=== PATIENT | female | born 1990 | race Caucasian/White ===

== ENCOUNTER 2017-05-15 10:53 | Emergency (ER) | payer OTHER ==
[~2017-05-15] VITALS: Ht 160 cm; Wt 74.8 kg
[~2017-05-15 10:53] MED LIST: ALEVE220 MG PO; ATIVAN1 MG PO; BACTRIM DS TAB1 EACH PO; CIPRO500 MG PO; CLINDAMYCIN HC300 MG PO; CYCLOBENZAPRINE10 MG PO; FLAGYL500 MG PO; IBUPROFEN200 MG PO; IBUPROFEN600 MG PO; KEFLEX500 MG PO; MAPAP500 MG PO; NORCO 5-325 TA1 EACH PO; POTASSIUM CHLO10 MEQ PO; POTASSIUM CHLO20 ME1 PO; PROMETHAZINE HC25 M1 PO; PROMETHAZINE HC25 MG PR; PROTONIX40 MG PO; RANITIDINE HCL150 M1 PO; REGLAN10 MG PO; TRAMADOL HCL50 MG PO; XANAX0.5 MG PO; ZOFRAN ODT4 MG PO
[2017-05-15] MEDS ORDERED: ONDANSETRON ODT8 MG PO (12:33)
== END 2017-05-15 13:10 | disposition home or self-care (01) ==
LOC: ED 10:53
DX: G43.A0 Cyclical vomiting, in migraine, not intractable (principal); F17.200 Nicotine dependence, unspecified, uncomplicated; Z88.1 Allergy status to other antibiotic agents; Z88.5 Allergy status to narcotic agent; Z88.8 Allergy status to other drugs, medicaments and biological substances
CPT/HCPCS: 80048; 85025; 96361; 96372; 96374; 99283; J2405; J3486; J7030

== ENCOUNTER 2017-05-24 17:35 | Emergency (ER) | payer OTHER ==
[~2017-05-24] VITALS: Ht 160 cm; Wt 74.9 kg
[~2017-05-24 17:35] MED LIST changes: +ONDANSETRON ODT8 MG PO
[2017-05-24] MEDS ORDERED: KEFLEX500 MG PO (18:47)
[2017-05-24] MEDS ORDERED: ZOFRAN ODT4 MG PO (18:47)
[2017-05-24] MEDS ORDERED: XANAX0.5 MG PO (18:47)
== END 2017-05-24 19:44 | disposition home or self-care (01) ==
LOC: ED 17:35
DX: F41.9 Anxiety disorder, unspecified (principal); J06.9 Acute upper respiratory infection, unspecified; R11.2 Nausea with vomiting, unspecified; F17.200 Nicotine dependence, unspecified, uncomplicated; Z88.1 Allergy status to other antibiotic agents; Z88.5 Allergy status to narcotic agent; Z88.8 Allergy status to other drugs, medicaments and biological substances
CPT/HCPCS: 96361; 96374; 96375; 96376; 99283; J2060; J2405; J7030

== ENCOUNTER 2017-05-27 08:06 | Emergency (ER) | payer OTHER ==
[~2017-05-27] VITALS: Ht 160 cm; Wt 74.8 kg
== END 2017-05-27 09:35 | disposition home or self-care (01) ==
LOC: ED 08:06
DX: F41.0 Panic disorder [episodic paroxysmal anxiety] (principal); F17.200 Nicotine dependence, unspecified, uncomplicated; Z88.1 Allergy status to other antibiotic agents; Z88.5 Allergy status to narcotic agent; Z88.8 Allergy status to other drugs, medicaments and biological substances; Z79.899 Other long term (current) drug therapy
CPT/HCPCS: 96374; 96375; 99284; J2060; J2405; J7030

== ENCOUNTER 2017-08-24 01:36 | Emergency (ER) | payer OTHER ==
[~2017-08-24] VITALS: Ht 160 cm; Wt 74.9 kg
--- OUTSIDE RECORDS SUMMARY | ~2017-08-24 | XMS | Clinical Summary ---
Demographics + + + | Address | [address] | | | [place] [address] | + + + | Home Phone | | + + + | Preferred Language | Unknown | + + + | Marital Status | Single | + + + | Congregational Affiliation | non-denomina | + + + | Race | White | + + + | Ethnic Group | Not or | + + + Author + + + | Author | [facility] | + + + | Organization | [facility] | + + + | Address | Unknown | + + + | Phone | Unavailable | + + + Support + + +---------+ + | Name | Relationship | Address | Phone | + + +---------+ + | JARET GOINS | ECON | Unknown | Unavailable | + + +---------+ + Care Team Providers + +------+ + | Care Master Yacht Name | Role | Phone | + +------+ + | None Per Patient, None Per | PP | Unavailable | | Pt | | | + +------+ + Allergies + + + + + + | Active Allergy | Reactions | Severity | Noted | Comments | | | | | Date | | + + + + + + | Opioids - Morphine | Other (See Comments) | Low | 08/10/19 | " I don't know" | | Analogues | | | 18 | | + + + + + + Current Medications No known medications Active Problems Not on file Encounters +--------+ + + + + | Date | Type | Specialty | Care Team | Description | +--------+ + + + + | 08/10/ | Emergency | | Patrick Canales MD | Non-intractable | | 2018 | | | | vomiting with | | | | | | nausea, unspecified | | | | | | vomiting type | | | | | | (Primary Dx) | +--------+ + + + + from Last 3 Months Social History + +-------+ +--------+------+ | Tobacco Use | Types | Packs/Day | Years | Date | | | | | Used | | + +-------+ +--------+------+ | Never Assessed | | | | | + +-------+ +--------+------+ + + + | Sex Assigned at | Date Recorded | | | | + + + | Not on file | | + + + Last Filed Vital Signs + + + + | Vital Sign | Reading | Time Taken | + + + + | Blood Pressure | 121/66 | 08/10/2017 3:56 PM PST | + + + + | Pulse | 72 | 08/10/2017 2:25 PM PST | + + + + | Temperature | 36.3 C (97.3 F) | 08/10/2017 1:47 PM PST | + + + + | Respiratory Rate | 18 | 08/10/2017 4:00 PM PST | + + + + | Oxygen Saturation | 100% | 08/10/2017 3:57 PM PST | + + + + | Inhaled Oxygen | - | - | | Concentration | | | + + + + | Weight | - | - | + + + + | Height | 160 cm (5' 3") | 08/10/2017 1:47 PM PST | + + + + | Body Mass Index | - | - | + + + + Plan of Treatment + + + + + | Health Maintenance | Due Date | Last Done | Comments | + + + + + | HIV Screening | | | | | | 5 | | | + + + + + | Tetanus | | | | | | 9 | | | + + + + + | Cervical Cancer | | | | | Screening | 1 | | | + + + + + | IMM Influenza (#1) | | | | | | 7 | | | + + + + + Results ED INFORMATION EXCHANGE (08/10/2017 3:51 PM) + +-------+ + | Component | Value | Ref Range | + +-------+ + | [facility] Care Guideline | YES | | + +-------+ + + + + | Specimen | Performing Laboratory | + + + | | [facility] | + + + + + | Narrative | + + | | | {ene6xhqtdunwnqv4392qmci4ldcsbsl2567{info{title Notification}}gqccpc06561zdp | | ogs00836nvlqxg51820iowqju47822sutmhtm917dysonfo029eqwhs7694gnipa636fhgwp270fglxe | | 643upaanuik0672whmrhmyh254tjgvwbqi246pjnknhtc368lbrsyvjdsu0i3j7sl34{fonttbl{f | | 1 SansSerif;}{f2 Times New | | Daniel;}}{colortbl;rfr4vvtvh9gyfh4;iau747qukus765vsxq409;gtx774nipyr204nxas244; | | lwv769dkqpk647cbiu894;tzp972magjo154wshn824;}{stylesheet{a56ifvxf92 Text | | body;}}{*listtable{listlisttemplateid1{gtqyirrabqtmdglto25sfkboaj5xklawbjcrpbj3 | | levelfollow0{leveltext '48z2430 | | ?;}{levelnumbers;}g7m9u1kq31ksdhtb-835fb004}{jcqqheofpapynjqux86wqccvah5bhuv | | sdfgvuav6igxwgoxslwg5{leveltext '44i5566 | | ?;}{levelnumbers;}j2u8c5id12bylzuy-733tt3871}{fhphprbfrggnxhyyk11asqaacp5khj | | ilzwcevdn7gatnsorltgv9{leveltext '10m5002 | | ?;}{levelnumbers;}p8l8n9oh09xescre-429xy9112}{gbdrnhfbuyeujyvik09cwpzjay0vnh | | rdnszwbkt5edgtkbdbjwt2{leveltext '93h3640 | | ?;}{levelnumbers;}w2p3b2ot24gjjkzm-623qh9416}{qzlrbrmmcuaeplgew61plrexfe0mwm | | aggjlhepc3ivevqslitma1{leveltext '61o6585 | | ?;}{levelnumbers;}l2u2m1yk47ddyaqj-727oi1220}{wqejnujscugarvops06ulddqmp9ktv | | ykoqseocu0feivbynanum8{leveltext '08e4227 | | ?;}{levelnumbers;}j4d3k0xo58jmxmnt-811jh2352}{mbrgvwklslgihwecg16sqifixg9aam | | awmdlvisl9bkxkreqczjy8{leveltext '43t3398 | | ?;}{levelnumbers;}a3o9e2ml21phklyy-661ci8450}{gthgsbnawbzxfnaom70wlsgzkn1agv | | adbavqimp1nkrgwdjyegz5{leveltext '28g7743 | | ?;}{levelnumbers;}i3v8e3cd96kvauvn-015ga5619}{zilnwedqjzqjpzcrt58cmumvgw0zdf | | jdsgyehjc3eiyeknwbikf4{leveltext '88k7223 | | ?;}{levelnumbers;}h5p8c4rg56fawkfo-551xx8571}listid1}{listlisttemplateid2{li | | xmefriiswcxxwvm62fvukvhl0sfdcfcrcgpfv3zejuarrrvfu8{leveltext '40x0435 | | ?;}{levelnumbers;}v9k7y2qn22okjibm-773gm100}{wbhtmvgyicegxgtlw56lmdsrey8uecv | | mywcinht7lzhofwgopdt1{leveltext '84i3841 | | ?;}{levelnumbers;}g8q4e3pd09dzgqtx-553lv7333}{qczhsitibhxntvwvd24cvgivju9uyp | | jpttvipie0cjkkoywmmwt0{leveltext '42e0511 | | ?;}{levelnumbers;}a5j8o8zt15hnjvlf-027zv8620}{egsawkyeaxdrvfnav52ptmxgmz6xny | | bpcnbnexg1hjwfmskgndp6{leveltext '82b7373 | | ?;}{levelnumbers;}y9w5u0dc14ompttt-903px8973}{urcxdcxmuxvxgiqkm38cvvylej7dja | | oxnhikhvo7fqyovcmejkg7{leveltext '39s6329 | | ?;}{levelnumbers;}x2h6y5vf94clypcy-026lj1616}{cajtyccfcpwbbgzxm85rtgvvyw6dcx | | lsaijbffy4lqqpdylggox6{leveltext '30u7625 | | ?;}{levelnumbers;}e8w1l8gt84ydoqek-915dm3155}{mkkivixwtfxijmcfx30ekyhvcj3xnz | | odmsjmovk6sjtiqrtbauq4{leveltext '80o4095 | | ?;}{levelnumbers;}j1z6c9dx26eoahjz-939of9641}{trhmoimbsrnqipztg34iazjoup1zfh | | orfxabdvu2cdxbahvtknu7{leveltext '40n8430 | | ?;}{levelnumbers;}w0k6d6mi06cufwsn-416ob9948}{ezqehgdsxurzkpcma76aoprgur7muk | | yfghfzudi5fcxzjxxrwls1{leveltext '28i4827 | | ?;}{levelnumbers;}b5l7z9sj22aryhcc-389yq9741}listid2}{listlisttemplateid3{li | | rikkzbpeyppylua79hwljoxq9wmtuuvympkyy4asueifeztvk9{leveltext '23n5711 | | ?;}{levelnumbers;}l8c6i1bf19xjqtjx-233ur726}{imxyzmtlnqyrwwadj49buyfgpb4pvoo | | odzgsoqr1imcnoobwgbe6{leveltext '87h9012 | | ?;}{levelnumbers;}r7y3s4re43zeknmc-193lu6916}{pxqyvscjxevjgvdlf16qafogmn0gvj | | zrzuwvdzl7qszlcpkqlpo6{leveltext '58x7185 | | ?;}{levelnumbers;}s3m2v0au05wlmvwq-709ks4828}{gffdewdldyajdiydx86snrrjnu5bav | | qtbgbswuj2kjkhuzcxdco9{leveltext '65m8671 | | ?;}{levelnumbers;}p5p6i6se86ekhtas-441jf1725}{euhdlzwgusfbkhcqs77pvafrmr0qda | | igfnruhuy7daymrubwpca2{leveltext '38z6692 | | ?;}{levelnumbers;}e6x1m4tt23ebzrls-950eg4086}{bbdphtgobkryalley04eyfxzis1fvo | | zatrjbecx1aqpkxpxmwla5{leveltext '96r7414 | | ?;}{levelnumbers;}g8j5d7of82ezenjf-706mz9545}{tksvqnbkmtptcitqt91asaipdm5aoo | | qmbygubpz5zgfmyzjhhbm3{leveltext '18j0769 | | ?;}{levelnumbers;}s7a2e7tf94azbdbb-368yj3279}{gtkdjhpnegrscgnog39zonnfvt2yha | | yhzxqttwf9rtmgcovpaaw5{leveltext '53u7007 | | ?;}{levelnumbers;}i2d7r4ob20bmptvm-109do8238}{lhqtwdsbiaboslrox22byfkdlb1eui | | jphdbdnmg5murxsrybpyk3{leveltext '89w0082 | | ?;}{levelnumbers;}h9w9c6nz81nmmbmo-098gp6786}listid3}{listlisttemplateid4{li | | ytkydeoeylvsmki30zzkonhl7pquvybrncjtx5ziusspcvyuy3{leveltext '31j2824 | | ?;}{levelnumbers;}j8z4h8uj51sntdul-222qi210}{rrqfvlfdovxesyxze92fyupaog0didl | | qdxjttpu8eovwfvxqyzn2{leveltext '28c8442 | | ?;}{levelnumbers;}y5x3k7dk87wduswi-431wl6124}{xkpjcqxkkyvpssqmn30klutmlx1dds | | cggwqsylv2qhndmcbaarb6{leveltext '17p3282 | | ?;}{levelnumbers;}o7r5c6se72nlqdgc-331le2639}{tnqoxnkymulisrbut21pbucyno1jhw | | curgejcrp6owhccvyrgfl1{leveltext '37p0716 | | ?;}{levelnumbers;}e6w8p2or20lnyvub-407db3066}{hjitnzkcxnqquxutx46ygdcoza6bev | | xkriyxrci5zlajxsbfetn0{leveltext '81n9385 | | ?;}{levelnumbers;}k6b7q7ch62phoreh-926ji3686}{gancvsqntbrcjpwfz86ewhuotg0wrb | | iapkcilym7qrnmudcgtgt4{leveltext '38n9848 | | ?;}{levelnumbers;}d8i5s5ae18hzjrlg-926jn1130}{wnojhmtfwjfczmaxt39pvqmluc0inv | | nqkybekjs7xuhuwyhbpby8{leveltext '80d0875 | | ?;}{levelnumbers;}f5t3q6oa74wecsvv-239zh1488}{bsxuxfcumwmmxvzxj82iemdvpg6pbx | | wqmvielhj3grsuxfhzkjw3{leveltext '06w7709 | | ?;}{levelnumbers;}e7f9u8yo02gcdndr-351nv2800}{lfcizefojsaoshmiq23fedvxlc6bqx | | xjjprgkht6htowgihbrqj3{leveltext '11z3086 | | ?;}{levelnumbers;}h4w5i7ql09eqdmxe-163mx3462}listid4}{listlisttemplateid5{li | | cfhqsdpitmywpir91idhtamx2wixgkrddckzv5qqzomvhiyev0{leveltext '53h6522 | | ?;}{levelnumbers;}z6l7q8tt11uwkiws-090nk699}{ylkfviqmnaeadjjrb31qntjbmz5nufw | | gpvobnjl4amcuvfyvcum2{leveltext '49e8453 | | ?;}{levelnumbers;}h2w7c5vi69qfdzms-151op5221}{djoydvwptvexrnqvp64wmojbkx4dzd | | pbncnswrh4cdmfrhrwsio0{leveltext '00y8876 | | ?;}{levelnumbers;}x6t3z9lt85hzmvdv-702pi4982}{vvrigseblhfevzvok13yifrelz8lyz | | mtkzuswlj2nqxcyqujfrs1{leveltext '47p0313 | | ?;}{levelnumbers;}g0m3g1mo93vytipt-041dg2563}{geqlhdzefdvehnbrd64pikcllu2ene | | ihrwiiklw1oenkiishcek6{leveltext '46r2946 | | ?;}{levelnumbers;}c2b5x0og40sktrtq-942nb7865}{qggmjhbmrjswknmty08ctznjhc7czn | | oszayekha6jmjruslzgsj5{leveltext '79k7351 | | ?;}{levelnumbers;}u2g6s3ej73gxizdi-280dt4156}{cifddoyaqafqtdmos82ufgrypl8dcr | | rzhsvyrue9fsaqskqhutp8{leveltext '49a3489 | | ?;}{levelnumbers;}k7e2v7ux68crbusn-239vx9424}{nkebpbkjzcgdmgsvd73vfuywyo5kkr | | siqsmnnbx4wasbezkvhsr2{leveltext '71p7402 | | ?;}{levelnumbers;}d5i4q7en17nlpzaa-730sz1806}{yteqxabledimogfjf13gxggwzb4afb | | dfcohiswx5pvfrcvwhoqa0{leveltext '89e9994 | | ?;}{levelnumbers;}p6r5q2wt92ifspwf-764ma3668}listid5}{listlisttemplateid6{li | | xtnltdylpxfgvfw61ymltncb9pjmmxphtznza2penhzwsfmcy4{leveltext '62w2604 | | ?;}{levelnumbers;}l7m0z3en61twiskb-378do902}{sxqdzygssdfnevjqx29wmubtkx6lgnq | | zaubvtom2uotakwqzmzr1{leveltext '81f2379 | | ?;}{levelnumbers;}l9c5y9kb90kvzzjo-281fj8789}{sdrckidmbeorshrpp00npmhmvo3fkd | | qduruuohv5efapwwjkxrr2{leveltext '34i8658 | | ?;}{levelnumbers;}c7m2a0mq67znejdw-810df1025}{addjrogybrfvrnbtw16yxxjpvv2hft | | ykaepvbkv2tsrohwkgntu4{leveltext '23p7498 | | ?;}{levelnumbers;}w1j1x0fc14rhopgo-461kn3910}{sqzxevyvwdgcsldgh88qlokkzh7mso | | qovjkddeh2lagoyxgbtod0{leveltext '97m0306 | | ?;}{levelnumbers;}j6v4h6ao09lrqkgz-010xu8552}{zehraqlxeocxzgnuj12gnbezoz9wue | | pukwduncl5pmhyddmtcez0{leveltext '18x4023 | | ?;}{levelnumbers;}k8y0d1mz15atfdyl-214mz7895}{ggggmzeeehvklfmnf41aisncpa7fzg | | crslzmqxr2ymbwamdnnuy1{leveltext '27m0546 | | ?;}{levelnumbers;}b6b1q0wg59kuflmn-337pv9913}{hremrubdgcjcoawhf01krxzxmj5mln | | rthteshrz1ugoqgmrttts0{leveltext '76u4633 | | ?;}{levelnumbers;}f1z4i9rs12erehdx-115rx0931}{ejcfnekbumppkriod05yonwngr6wur | | hjpjfliau5njicrsuazsa0{leveltext '98q3770 | | ?;}{levelnumbers;}l9k7i5gk65pezabi-877rc1855}listid6}{listlisttemplateid7{li | | khhzacpkcactvxt42mhrhsiw7qolydtvlwtwm9nygkqyrsvae6{leveltext '23p3822 | | ?;}{levelnumbers;}e2w6q3yg57ydhtdo-745oo612}{hqbkbfydykqcqafbp89wxnlxzl1fgjy | | tonvjfem9doqembttukj3{leveltext '47g0874 | | ?;}{levelnumbers;}o1h0g0tw08bhftwe-916nb1703}{rcldmikwrnfdykrpu94pnfgrmi6dcg | | rdkndrjex6dyewaxiinin6{leveltext '24r4204 | | ?;}{levelnumbers;}e8t9e5sz47kaxvey-556jl8585}{kehpqruvnrnisxxme76jieunrn5ylb | | lpxqekcwc3yigvdilfgqf3{leveltext '99i3270 | | ?;}{levelnumbers;}d0k9s7qh52ymvhqc-619xp8286}{oilsjglyyowebhrdv23tsuvtsn8ozj | | mnneeqfdl9bnszgaujufm2{leveltext '52p5183 | | ?;}{levelnumbers;}j2q6d3ig24wrkdlf-277om8515}{dlmemycpeonpbwuuv27cigqehq1eif | | nifwdetuo6ubvufhgggsg0{leveltext '94i0035 | | ?;}{levelnumbers;}t2m3k3it46tbrdah-022cf0893}{qkrxhzbzucyquaxea70mltivdo6ash | | rjdgdbbzu6fcadaqpuwvb5{leveltext '58f2406 | | ?;}{levelnumbers;}u4m9g9pf62aqfwuk-390cj2025}{zfsbgvbliqovxhdjx08hzrnngj1elf | | imdjovbyv4cqwidtctqcs7{leveltext '37n0090 | | ?;}{levelnumbers;}l3b2v7pq80jfspks-313pc0987}{lxwrmrxuzkbftoipr64krgpphc0mvb | | cnrmhxpov9dwoutciggvh6{leveltext '16y3365 | | ?;}{levelnumbers;}u9n1k2sx27yzbphm-808uq5426}listid7}{listlisttemplateid8{li | | rshklymrdlmqdni99flamqxd2pdlkerirhrsu8httqgoxmabb7{leveltext '80q5752 | | ?;}{levelnumbers;}a5z9m6ma89cdzqcv-105ev192}{wadgkctmybtqdcckq56ppfxtur7nksz | | izljugfd8iyqgtovclvd6{leveltext '51f0509 | | ?;}{levelnumbers;}k6t7y2ij98ohplac-753ot5722}{yhyarjmcqfpsaqyqv13yfjlytm8xul | | zujjvyquz5ofkxyersdzf8{leveltext '07a1934 | | ?;}{levelnumbers;}k7l4c0kc55pepaai-294qo5078}{rxqvyiwjlyprluvcy03sngwivg9nyr | | tmeybfgcc2isnjmpegvwe0{leveltext '39x2299 | | ?;}{levelnumbers;}n1v1w1ag83mphpib-764br5844}{mnyuwsopujriopwix09liptjvs7jzj | | ptaroseax9mzzwxgyfwbt4{leveltext '20k2729 | | ?;}{levelnumbers;}u6h5s5mk55roxuzi-987nh9721}{uvzrkgbrlehivujcp33eukvtey4jil | | ioxyxdndn5ofqxoyarnvs9{leveltext '05t1603 | | ?;}{levelnumbers;}k1g3t2dz07hyeqvy-991gz5544}{zcuwqyftsfkyrnwyx66ybrlqbg0ayq | | vjeuoxmiz7yvrpxxyxpei4{leveltext '09k9511 | | ?;}{levelnumbers;}g3d3b5zl94yhyxhe-026qn7090}{kkxntgcieozwzwjjn57dlrcpks4sec | | arsnpgegm7qqpwxfizwrh7{leveltext '61c0412 | | ?;}{levelnumbers;}o9x8e6qa42dppkse-214et4312}{qbnmwusbljeifaxry59bbwfweb7usb | | aoepxioee3flrvnnqighu8{leveltext '78f9184 | | ?;}{levelnumbers;}k1o5j1aa82ctkxta-332ms1684}listid8}{listlisttemplateid9{li | | sseouqzuvsveuzj64mqrallh1djwovrhpxxdz1voezmyetmol2{leveltext '47v0089 | | ?;}{levelnumbers;}p4m8p7pm65uavoar-462fp960}{zesfxxlepkvfimoxs04hggfnkt6bsve | | fcsxospi0ztjdzbwhvjx2{leveltext '09c9183 | | ?;}{levelnumbers;}j6c5u3gb01bvuiwl-578jb8412}{ilrzwwyeamerbbwin43chljtch0ykh | | kpsagogxu7mcvkhmlvxip0{leveltext '62e0506 | | ?;}{levelnumbers;}v7h1t2yb75gaslbw-577hc7348}{drgnvmhyxrdguxvqq48pnsndnh1rtd | | wksrxrfio9vaiucjadmzn8{leveltext '77u3339 | | ?;}{levelnumbers;}b0y2q6kg75epxehm-570dd1932}{nxzqarkmqklmkjbyu04qxguray6dde | | muqqprmar4fmlrgnaxedz6{leveltext '71p5634 | | ?;}{levelnumbers;}l9v1q6tk75ryprex-059pr9128}{lxsvnjdhduzfahupe92rzvgdsl6ski | | mzauvjfqv2eijwbxqjcbs9{leveltext '88r4871 | | ?;}{levelnumbers;}y0e5f6ks29mjluyv-739qd9900}{uevfiyehqoksiwnav64fyoyxie1hcr | | ycubeogsf1ccxxuvfvzgn7{leveltext '17m5799 | | ?;}{levelnumbers;}h6n4q0lv88noxdsd-852jn5972}{ishljvdxssjghfcmr35qszyasf2cfa | | cczfwwavd7rzawhqmncos4{leveltext '41w3044 | | ?;}{levelnumbers;}m0c0m1aq62ybaonb-615dt9694}{bsiyxxqxvcvmqryqh54rllipdf9qwo | | ivmbsqngq5dbwvtvsurlt1{leveltext '78x7006 | | ?;}{levelnumbers;}i5h3k2sc61dbhosp-650xk7273}listid9}{moyiwegzaqvrizpfqf71{l | | vmoarcsmhhlykdqu19aqtvrjz9hyiwgbuceyzt3gvvkqlrisuo5{leveltext '02a5665 | | ?;}{levelnumbers;}v0h4i1gi34fbbavd-705cm251}{stggxkjnudkwqfzsv51tnvkaiu7uxaq | | gzwvepgu2sikkuuarylg1{leveltext '58f1826 | | ?;}{levelnumbers;}m1r7h1ka28tjosvk-893db9286}{oczrecqyrbqczrlkw71wnljriz7skt | | pstosxdqb0pcieproapbo5{leveltext '51z5881 | | ?;}{levelnumbers;}c1g2w1sm17ebbgdb-442fr1761}{ovhjbvhwvsyaejrpc38eoacwyn7etp | | mdsnakmab5iuwgvoqozkz4{leveltext '79h4503 | | ?;}{levelnumbers;}f8e1h4pu47opkbcj-720gl8951}{hzooqmsabmyasyhfd23ztpvnmh4akq | | irrouubba2acglnwqhkam4{leveltext '24x2071 | | ?;}{levelnumbers;}p4p4y3oy68knkgcd-219pa1855}{jkftmeazzsnegewrj37tjygwsb2aqk | | lyogegjvh4wlumtcbinfa9{leveltext '45f3444 | | ?;}{levelnumbers;}m5d2f0do65bbawep-522ny3184}{fpesedsgfqvbjmpxk08daouwww3uri | | scokdxuen4tkclyiwmbcq3{leveltext '44v6450 | | ?;}{levelnumbers;}h5x8a9ze41zdclmy-825yl4142}{fvzubjnqtrxhxedxm86mldaryc7wux | | icpalskcq3wnpiitshprj5{leveltext '77b9583 | | ?;}{levelnumbers;}k5g2v9qb97eiyywd-139fi3157}{scfxgmxtltxuhegxu34edodeuq6fck | | ypanskkya9dgyqfhkkkqj2{leveltext '54f4157 | | ?;}{levelnumbers;}t9q7r5kj45cyejih-846qw9157}eezhzo92}{dyhufmvwolwvmlyhsh88{ | | sqzdjiioicbqtllrx15buixclt4gougmympzhru8dwmcnqgdwsb9{leveltext '12h3854 | | ?;}{levelnumbers;}b9v1t8xf14ahrwqg-224xn207}{rmcitaelscrjpgcrw55pmybmno1crmx | | zxljablu2rzeqwfcxwob4{leveltext '88w2316 | | ?;}{levelnumbers;}b6y0y4cn06izqnpg-454zn9922}{kjpuspzovoqjxvtst53tmgnnho7pti | | kyqqcvkws6spgnmwphkmw9{leveltext '74z1044 | | ?;}{levelnumbers;}z4e2t4uf81fmzzxz-525yy1851}{xdlevfsnkcxordyrv70abzpkxi8tdg | | fvtoxdxno2ozyfvxuiemi5{leveltext '15i7180 | | ?;}{levelnumbers;}f6v7z4cj42kftqqj-299hm7238}{ryvpxvpgankbefpwz77gdmgtqo1oay | | jpeazqwzp3rfoliyycpxi3{leveltext '72a0674 | | ?;}{levelnumbers;}s2n9b4eo70ajxnzk-391fm9882}{anhzklhynsgoahism14qfjvrrf2dsk | | toifdvmam9gqygagojcqx9{leveltext '95w2064 | | ?;}{levelnumbers;}o0b8q3sd26tsxpbs-796qd1040}{pxbvuqgxiyzhiublx18kdfevyx9czd | | tfxgtjrvp1ypkbtxxswrn1{leveltext '12v2629 | | ?;}{levelnumbers;}a1n1e5mo45jtpbyd-337qe6762}{jgjjesuvaajhatkzl95wkmyssf9fmw | | ulupietbx9psfdxchperl9{leveltext '68h2747 | | ?;}{levelnumbers;}u6t7o3qc84fwhbpi-628cc5267}{mgjfzughllpdirrgu17txlyqox3vyg | | xinevzdlc3rjknwbjugor3{leveltext '47u7002 | | ?;}{levelnumbers;}f9z1l1fb94oewxzy-158fg0699}nopukq65}}{listoverridetable{lis | | ydftivxuldbqori2bazliduuxctwijzdt4ev5}{ybszpqfbespmezbggz9abtylmiiubicumrhu4ea0}{ | | wrgazlgvdjpwjhyaak7frluiplydysfmwibu5ur3}{sivygutnrnczxslkkx4zkfwecnbeydosxmfn5m | | s4}{xhbowjjeurrbyfcblc0hlkyuxbrhrrgfkzgo9tj3}{powlqtswnjubzruaao0yncliwowgcioczas | | t0ls6}{zaenbmpersnxqhxuad1jjlpjbejsseayddlk3zy9}{izjgipkrjejbjmzige9sgzbmsfizvym | | judlx8jf6}{qqxjkvlyitqqptcdqc3fowvsydcgcppfhwer6fe8}{cbleerhwqtdveerwte07fcggnep | | jimtjprrzn3ck95}{bngtznxnmrfyfwelac82iwhrdsnkqzjeoveac7kn77}}y6t1j9yl41v5g4e | | 0ph15h0h3q7gg98{widctlpardbch{xmkupndsencqgp7sj7sk68tc472jp9wo2wl1{wid | | ctlpardbchqccf1 XXFFx502?PQDDZXHEQTLEz747?08/10/2017 13:52f316?BRISEIDA, | | MBBQCUGXz462?MRN: | | [id number]}k1s9h1li35brl}h7z4b6zg77{ctuwnlunwkjdmwd161zs0zr7bj6{widc | | tlpardbchcf1 This patient has registered at the [facility] Emergency Department | | par}c3c0g8ti36jie}y7l7f6ao65{fzwqbilbgbdiyh8mgmj49up640ig1kc5gz5{wi | | dctlpardbchcf1 Criteria metpar}p3z2t4rf44{pardpar}l9y3l8xm28{pardplain | | y4a3e3ax46mwumjpfzlqu{*sciizb4mhbxrdbw1orobkeuje4wxpqdgc3}zn9rcjqtbq2olpfi | | cyyt7n1k7iu79vnrs{lkybpkmnyclps1s0a5gf62iqtlk hichdbchloch {u8226 } | | }tbsy7xb5 qf332jy0bgx418wic8jk-252{rtlch ltrchloch cf1 | | Guidelines}par}{pardplain | | t7t0l3rw50ckmkldbpxdx{*jttvpj2kbpscabq8zinrovlzh5huusgyh8}zj3hxxcgfc8buqmx | | wiva1v3a2bt44vccw{aywfmdijffczv1l2v0jz79sausb hichdbchloch {u8226 } | | }ycza1se9 lj638cd7ruc570afn7sd-705{rtlch ltrchloch cf1 Frequency | | Patient}par}par}i8g3c6ft05{idmcrjnmjdfioy8ttec86fj265qm8lp0fr8{widctlpa | | [facility]k3n9z4jm45xy4 Last | | Updated: 06/11/17 6:10 | | PM {par}cp3pu172om4pg2{widctlpardbchpar}b6m4p4lp37z6tvzb35is542ng7 | | li0ri0{widctlpardbchcf1 Care | | Coordination:par}y2k5l8fe44{lhhbqkplsanterk995gq4xv0yd8{naevtzpjbpqsqig7m | | 8fs7jf87 NOTIFY CASE MANAGEMENT TO ZLXpe3y2g2j8va34 IF HERE.u160? | | [phone].par}c3r1t6sj74ci067vj9df6lb9{widctlpardbchcf1 ENCOURAGE PATIENT | | TO USE PCP OR CLINIC FOR NON-EMERGENT PROBLEMS.u160? EDUCATE ON | | UTILIZATION.par}o0v3s0kz73eu295ds3gj7ak6{widctlpardbchcf1 PLAN IS TO HAVE | | EOIPA NURSE/CHW START WORKING WITH | | PATIENT.u160?par}m7j4n2vr74kz976jx8xt5vb1{widctlpardbchcf1 GET CURRENT | | ADDRESS AND WORKING PHONE NUMBER IF COMES IN TO | | ED.}par}y7b0t2ez73kk774ws9fe0qy5{widctlpardbchcf1 These are guidelines and | | the provider should exercise clinical judgment when providing | | care.par}q2f1i5cg14jrz}k5c1u6px74{widctlpardbchpar}b6x1d9bh23{widctlpa | | okobri9hreb11ko350hj9qm6ua1{widctlpardbchcf1 Care | | Providerspar}a5y3u8su78{{ypqslstyilbrfxrnnubznjdkmeqiwgkzui2zxfbioexrvocbuc | | naent4avexjjzprucocyyblynw7oufdikcwgxuuvhmepdkf7wwiefy82awzfnz21mwgnld50ppglqg | | 91apapgjd5titfvil1wqrblkt7vbzzrxk2lmgtcgxkxvhzbkxl2998vgshrmcfdssxvxiqsappozxu | | uvndg0iuarxqeydyqxvswwkkrm9hmymqvoaexchlrwkvmgz1qspcjnafacsvpqyydtld1qsbgqb74 | | vymfwj18lrixjm88toesne98flwanpf3nfmmsvc1jpigzhl0shqrsrd3adhsdwzcofeextri6513jvt | | ilcmxhccrhdhtinzxlhrilflgq8kyirfsihqgkvgoaypwlv1vnryhjlkelmqlekswlpc5lrirjokq | | byvlofdgeraa2bhblmb91pjujkd08uicswr37slttdr27cnorpcy9kdrzptz8oeyraca3vtpwdej3g | | ttkziubviyxjhwc2418ygwgdqgxnedgfwzxwrjtebnbwdxxq3rycncxhlsylqifuzfkfi6euuysdvb | | duomwxvapcqg6tucoafuxhakhfqszmfle4xlqfce67cszjrs88rtuuxu98filcxz98raqtzud3lrcl | | pgx2akwhrix3hdlwohr6kjyzzjzpzrutfxgo00098gcmtmdakzxqrckvbfdmwwtjhqfkbr2ifxwjdd | | djhxicsigvxai4ubacwnxjvacgowcqmoen7nkitrgpftbszvxudblvx8gfaekd74xzfxnt82vobvmz | | 13qdruys01iikfiyr4yovpjxi0ivquudh9clsaurp6twaegzusxefuujxt35554f8vt5my63mzgl | | intblqlcf1 Nieiqiyptelielhgdp3yv6ox90ayxwvtezutbrz9 PRC | | Ghsmvjmaqopthb3ca6uj62zqigbawdaxcpv1 | | Afbjyodfkghuacx3kb1ys60xunvofyzsepns1 | | Mzvuitcdynkqd6re3st87jhnjeyjbblqpy4 Service | | Nupdyaaeahldqnsoztjgdkhtwmfzrruyoobbmcsbnkqsyoqguyskpesgtbzs3mtimssqeibwmqw | | gaaxpg4gfpmmsfkupdfvzrviakk7qkhspjrtbkefdqbbkdon0earzzr74bqiwth16xilufx30ctibz | | f07fbbyzqp4lejrydp8ivouhhx5lddoydu5nmfzgauegwysfxcq0247pkpudfamanjbtlknufvohrj | | dgocbj2dcfihrpvzhkohszhalqj9uzfpdjeflwupknfmzfpu6jfgdlpihazohllobxszz7vbuxad31 | | duvwaz95kbonmr18rupkge02ojalwxw2pwqfyyx8rnnsjby7xnmqqew9vliwizxzherycgal3523pd | | kryctytcysumafqvrmtrtgmrqkl0xvwizgyrqmlbpqunweez9wjorbdebcltmipijlwkf7mivhwgp | | jsgexdnfzkkoz7btpsjg12radavj41utaxaw14rbfuja43tmjdfdf1dlgsqkt9hjvigvg6mqfmupn9 | | zyycfduymcwhyvjp4100mloefvbnznfrkouctjbbxzqqnitwb0yuytnvtexmshbymkqgtx8jurxdui | | djiccvjlwjwbh8wmfztiunluounamotkrj4qdodlz32ztmqoj18viwkvi93jvzyjl40wutfqmg3out | | bbnp0xrenlli0zpfjtnu2jrmvuftpnenbhogt10776jbtdcjfoynfybnuwjuymwetnhuppy6ianpevf | | hdkrtdmydwtdq0sdrxszceguiatxvuqhya1rwecnvlirmqqejtnlkvv5dsjtpy41xyqsgm81vtmpj | | c36jyegqx75qibpoxd1yrdisxa9tfyelqq3jlgioms1bxrsadlataxcuhxj90622m5w3d9ii73kr | | rdintblcf1 [facility]plhrqqw4y1y7eb57oesnhahofir8 | | Primary | | Sgzcujlcmziqlhwhxznbabklbbbjihbeoysvvywivxeneyavsc2y7n0gr22gimizsqljib2 | | Current | | yzlvzbolfksbnbrjepggufzqjehllzftqruvojtpzpqihelvmhdbadz9kohzbaafkayagskkajd | | j4dashazbfsiieihunhtjo9dejdkdzroxnvpjjmbtot1ozkkbp57jojzih61mdjlxz41wkuylo11t | | nmdhro4hlazdxw0ajzqbrg4zyyormx5mtoblwutagofkkxv3587ahcshniwszlkxfpvmydtucbwrfcm | | r3sziuommczqdpzqemltcd7wdsqzisbyjvnnjqsmpyz4furxwjeytqcqazgzamph8ztowsw02sqsd | | dv26hnaryh09alagli43xjedxui0obpvwpn2ypaidai7vbavwip2anixxpuvjxamsorm4853fijqvml | | qaaogghqbtbudvsctgzqoo4pzivctnkehqdlxyipblk4fmyokromvjaxzeqrsvrs1adkwrzcsqgmm | | iadnanuv5xrkmoq85crjnty62esyajt91zkfcwq60knadspd9yoeiyve1dbzwbut7lqgxwat9oeupv | | kmiuosyebjs7144aotvoiazndezxuncnacrgywfzzgdd5iribwtksykcxglahqgog6mzmoypqaprpy | | uykksduo9dymwkichkuejcwmocrdx9nzctxg69xdvbcd15ldhoaz39faklmg41qsiwrgu2qtrsgaq0 | | gdpmofx1knjcfnn8qeuqfxranprsofkf43309fffbefpcsagyxmneflnjvlkmcxgck8wozxzwrgacr | | ureonkiip9aukenpgwxilcbwivzute5oauunjizfxngdoeifnwf6baitlf36sangmf93swagzh91f | | dgplz54cgntmjm5fdfigod4ckyyymm3zacwzes4yercwjvfatcwqbpq25499k2o1o9yq97nitwix | | [facility] YMQWNIVTHpblcaviard9v1a2vp16azileouisul7 Primary | | Dhfudykxebkoyinslkszblhpwaqshvtg8v8y2oe45jpypwjmxyxm0 (503) | | 413-4553vqzjspoyjv6n3a7ds55pgimextehsy9 Current | | plaincellpardintblrowpard}}s5c2m6jg51ygm}o0p8s6fq82{prstkdukvgnyjw8u | | xbr77vy276ht9la1ku0{widctlpardbchcf1 E.D. Visit Count (12 | | mo.)par}k1g6n5ek03{{qloyrlhqbstgjhjviilbmykoublopbhbxp0nnpvbvevgmbqqsmslxvf | | 6aqbgjolsnrudipispcao0nsajvwhhyezemckjxszk4xnevje24shjygy16dugcin71esusxq10qy | | yfszg3rddboov6nihegjt4kfqztkk1zcgppiuozpkqltph59704mheaxtpjvajjjnzsmijmglufcedt | | t9dixfqcbvtgdppajufooq1atlriukhfcaoatowqxkh1afwfbziysjrjrimwajhq9pmolss29aylb | | np69bxeypg23czvidq61wzicaff4ctpvudn7edamgeo9rchrkgr6aqzsimjiqyeggrmd23437r3jq | | 0pv63qyclzdzwnwzll2 Gumcfiydcjnwsusovz0ok2ki70zbnmefwemndcx8 | | Vbwjixippjlyxqsnqfmzubjhvohatoqwouegilyhwcobghcearxixztjyspkl6qwklhmpjewxlsg | | zgnats0szaacxmogvoymvdmumit4btjocemebfzjygvtqrej4ixdnei03mzosxd61azmgeg49ucqn | | zv26jhsjpol0pscmnvy5uyjmbsh3angsvnh8tnwonvmxapqunrqs78982jhmqoefvlrkiifmhtkbvxd | | sxckgkm0lwybvroljptlmatgorcz5jjobelpyiixrdhihegiv0pdvzytdutomvascdnzws6jjjzmj | | 59tzkhat59sbhtlo04tcssnd12ezbrfvg6owvjzab9thncwfe1hrcxsal7zeqhjlqwnfcksjpw36109 | | t4l1g1fk39agjxgtqnzfx8 Legacy Viflmwpcspjtqlkns0a0j7mf96rnxoeuhcutyhl9 | | 4jhncbrzeayisvuibapdebzxnlyacquelshiqjubfifmedcpcltfqubv8gaukvherhhipdcjozt | | gz3zojwitmysinyqoasubbw0lvunvatomjjinzbhgaik9ffnpeg79cpusgm01kmknno91gydekr17 | | cvmfzfs0lsgavaz2qysjfpr7cbspxbu6xjimacyxklhnphpz69991pksoaeeabkpnlybknrunpjpccm | | ods3xdmifzuhwawlfzbxrdam7dcqgmypcnhwfeunsuyvj3kfoffpkaofjmfuvnfhqi1uskpgf95jk | | uqej28tzhppa42gcsjhe71lrfxfcl2ytadeeg3jumazrb6qhwwjmi9hcffatruhqgjlhty56694t1j | | 0l4sh25eipnwqpxgsg9 [facility] | | Sooqdkeuqmvtanfver3v2t4an69abcyshcyunfgn7 | | 9dzkrkqtehsafwwvpynuifwpvfzxnkvnystvnjqcrxhfpthwodrzs21gyoldp6bbeosabyqxhng | | grtezwd7vkwzlgbcnqgevzzbllkp7wxxgnadeqweykmlkklvc9uhjvnc81ufxhfa23yiimyv31jca | | lxm44mtptuzp6pgvflba4sfqaopx8ckwwrjq3qqvdjwusogvepyxu85830lsisnwwsrxnjamukunhfp | | cxheu60dnzfpi3ygaaqiidpqtxrivqavdw8hbwisnhbheidlwzwegkk8setnhfubbqfqeprtzlxr9 | | vdkyav24dtssju37gmdvxt21ltnxkf83ycncmhc6sfdjhva9cbmoqbr0zfgokdl8utbpnmfheiuesu | | gv03397b9wl3jr89wlhbaowocyj9 Agkqqayuzehlujr7ue6nk82wictlbaghhorr1 | | 72edwkdldsxoanvyojopqygdg8uy8ojdsxumbzwehiojzwxtzsnknfjdmwcqepa6nkduuukhnu | | bgufdpkjnw7ssbeigdlmwwoimvtolot6dmnhphnbvfsrunqjejtr6kcbubh30whgqng09qzbdvr19 | | aggnge34tewqcpj8oajuskz2atqprzp2wdqheol5behpvfn5ceobtzobjx1ebstq64419n1q2f5lu | | 71lslcjplaink3spmjetc2 Note: Visits indicate total known visits. | | uismabz6vkhuqvlkuuzxxlxgiihwxyrda}}c1l6o7di73ldy}n3z3b1ps63{widctlpard | | bknb0lkrp00ld907tv4vn5eo2{widctlpardbchcf1 Recent Emergency Department Visit | | | | Summarypar}e2v2d8co41{widctlpardbch{{lxjajudclifibvfbmzprhivmxkzgmfnnis3duv | | vqeuycbgnynmmzcxt4mhcbkunuyfvnqppxhwoj5nxvibgujylqrpinchywk4fptzrw97chajvi85j | | rpxqy65gsthso11zhzolto4huretum0wdmloox3gaczqds8lcdmutlcmeifnfob7107hyanvjomzdgu | | kctcaoabwkrlfrnwj8puuwqzuugnbsrtbbjeeb2iafkjnraarxsfinqauis3zuuxcycrmwzgwgvro | | lqh3iohaea83nwhmyv60cneqtm43niknpz30hwpmvbb6sybojvb0bejwprf9xndxahf6aboftfeedqq | | nrova5214lvfarkspmlfmwzhcvsqmzauyrbvdg6wgnvtgcmiedykpcoiuqj2vczzorfcqerqysucv | | zfi3qbizhgjrouxquhrlvyss0xehrqi88fequqn99ypzypn64etztag66gmppmdn8dmrjibx4snjfa | | rm1mvohcab3hjjggtzbjdpcbiwy4296avpjngbzydaklxfgzhgquioueqwcj6lbkauytvelnruliox | | yin2ibyrgerhhgpurovsrkvd9wvcmfpfkjcipxpkxsqox8xnsgyt31oewjvt80lxggeh35bmennv81 | | ombvhzq2flcxags9jmujpzg8qntbesg5idxtfadleghdqgbl3813esdwocpsrmnydokqxyglrnfauy | | eir4cuhqigbqiquzfpvioedc1rgbqfttfstpicdkjxhcr8greidqdjncicywkhgglx7bthhgy31gr | | giko05wotgho34sogfdx70ierayzv3mzwdvyp4zzpadvv7rcmmjys6zabrarkkjaiwrafz8018wlxqh | | trnypimdcveichgkwogcogsb0ukopkslgfnqnukhnarfp5ykldaprnzzkwfulpkgkd8azbfmilhln | | vlfycdkpos9fadlps74qpfhtp88tdsbgr70lahvhy92lfgxxeo9ibetoos6icbxosj1rcghfsg7qik | | xdufaetpgefen9934hlajzjjuloxuppydppxugpycpvsbi4waxghzxcnfcorzdiyvbi0wonyiwaoqv | | amendhjwzi1lvdfslizlledvrwrjlbs0zewpvs37dwlwfp55tlaudq35lqgoqt86mgvfohx9zutirv | | q3xjweyjt0gpghzgq0lwoazdhtrhnczzhr63444j8cc0yi15qvthbtqwxjjil6 Admit | | Fagnwqwnenmsvl3fy9ke58rabbnwtlscrpe6 | | Eddbfspyigldktpddq0yd3hn49nyfwtiuuktiny1 | | Jkaznewavxwaku0cf8pl76hdgjqfxmnzohq0 | | Idsotfcjbghbhnh0cm1fb21oagevvzpjnnxs8 | | Lccxcaigunpxxf9bm0hy85tmlmcqezzcbcf7 Major | | Fehnjxyszeopby7pp1yh99muncxubqizaor2 Diagnoses or Chief | | Yfnethmspopticxfjfcmlavgvjtkinevipnyzpbbxofxweadevqpcjwmxafyxxya7rhgvhcezvqq | | cuiyowbkb8xvkvurwnijdagcrpudgs3npbahytvaeheffcyglmx8rvmrvq94rffqhy29gdcyxz77d | | fxnwc15imxneah7apnmubl1xhxbrvs1vohiqna0nhwydsxttgvvogdc4565ebtcvcdpwczzkqydpuzk | | eisyxfzwy1jucigjxuwlvylxsmiics5lumcqfllomgifhhwyaxy2irorlyxakypsnksrfkrj3matz | | pv80lkzxpk40kbtbse99qlfhdz28 | | qzbyqni2mdiepjw6zwmjtmb5yvpmzet5ewucgllguvyvsmvq1258cpcagadqkmkgunpvsbowbhwzek | | jez8fwtvsgyjztwdjvgyfzue8ukfnxeeivwiglzpafuok7oufqbyrbbhavzzaivwcm0yyasgi25jn | | qshk86iqzmag20jdhvds17psibsre9yrudiou3ijokzdg4tnemlip1hwlwrzjzipjfqiag7745kkkal | | rgtfwdbxajfamozumxxtoyvo7qkpaqzuowwbolvqswutc9xzsinltxsiuliumhivue7jicczgkduv | | iqfedaxxsy1brlwxc97qkwsrq65kkatfq97qtixgh01anilsuz5emaxquf6yhjlhgq1hfjqwgh8wub | | ypwrhxbcioqtw4373ntiokniivrjhqshvcccveidkcrbhy9jtetzdpmofiarsjydbrq3jwaxmyojbe | | jsirrffucu6urpdteohtxiusxtkosjm3jrhhrd85zdylto54rqiiyy32holgyb97smzjeqf5jzdwve | | j7kspghkw4vskbgsy8ymaawgnsvndjmvbm7671elyfyovonliknlydtihgfjdgxgpnq4ymeshiluww | | nlgmkeslku9booxloyzcaqxqpryeboj0xodrykowyvzwpsqhxfvx4uhbqic11hgcbup56zjrddl87 | | seoyid31nccecxa4poopavn8hoarfsm2ayahmya5pxmnrvugwhtdndel4171bvpkkwkqkeptattdkdo | | pdplbexqpg6lzgiktpeqgckdaxmuffs4suuwbhmhaxeithswwxpw8wmlougfzaldqewvtxsvs2ioz | | siu45lgurcb33vetslk06wpvxdb97qcrzhhx7dggdknj4zbllavy4qphlvsj7evglflqxmjtfpxsp79 | | 703p5a5g2zb45odsangmharplwntrmzouwx3 Aug 10, | | 4319rrrdwnkuwr8v6u8jx88eoitkmkqsqcchbdqauwamp8 Legacy | | Ylmxsjvdirxlmtkrw4e2p3ow10sgvhmoulrrmvqwmxwbtdbg1 | | Portl.woenvoyfye5s8v4um52bdrfcecbpwyhmxlwofnnbr7 | | YEwtqqmeztwe6l7u2fv73azeonnxlqypwrwvemvtyyu1 Emergency | | zmilluopsv0s7t1nf14vqorurywodugihymbgextt0 Emergency | | cdvqufdgco8o1s0gp29ljpwfcvvvzgejojqyfur{snwcssgqgeuwx7jfu}qltsvertaltf1 | | k6d6wj86etouragegol{eeczurgufjomw2kfpoq | | r6a2j1fj55vixderhlpsx{*uxsslr9rnprvlst6ytzrtjlpj3mkllksn5}ou9nquukmo2ntsyi | | kclt4b5o2ep48njbu{qswsqfiuouyrmugjuxdma7r8u0g8le65ntaxc hichdbchloch | | {u8226 } }deue6ty9 vv719ii8qwe182oth4do-404{rtlch ltrchloch cf1 Panic | | Attack }qlpar}qltsvertalt{pcsnpphogonlc8cjbwl | | w9j3l4du66xznlsqhgmhd{*gveyck0qdewfevd0dvilzkdow7joftumt9}zo5niilfir7cbgsu | | xdhh4m6u7st93hlvk{soinclrnvjzelbqqawaep5b2j9o9lo28vtdjr hichdbchloch | | {u8226 } }cmic1nu9 er718sj7sci946vsq1bt-808{rtlch ltrchloch cf1 Nausea | | with vomiting, unspecified | | }qlpar}gpxlylbbnamadzvxpluheqpmewlmvwjxkrtgbniexwlmibydjaxtxpm2phcizhlvwim | | cxfgpmwgi3zdgitqoemmhomcxuofxw3ykjyzwwdejynmltsngwh7pengaa89lpckdf64frzdyg75a | | jeqxj75igdmwmz1dtbhzop1qrdbppr3vweeeme5dyavhicysjuxsjkv1189sezugdjzregqzlfudrta | | vghmissjt4ypfwtbhivbuknkcbrdhf0olsitfqpdziidalnunyz4rzmwgcrhfaiozubbinpc8azqu | | dw75zxfpxl46shoabr58jxkcpo46uauzris1iolxoju0tnloceb3rrzxfyu2wldedgnkvtskgsee070 | | 5augqzblumpwavzumapibaepbyuute2zcprslsnlkfsxhmrrgbp4hpepifnlugtsdeyppanr1jhnb | | phdebuqfotocorku3rfghcm66tkevox84jfatdq92fnjlrt94wrtogld4iuygbuk2cobdhoj2mohuo | | bq1autwxljrtooqvxkg8301hhojuhhmzqrfzffawftjzjffsrnef3ehaaiwldutcfknkxdpce1cipy | | cneleswsjkpitqvq5mqewtaretgoyvpdvxgmk0cunpin87maaejz80giuiyf25kbhygl00lddtlul9 | | lrssvkb5fwjpexb9gtfvwwo1tjdiaaahwmjgkaup1420chpyencxifanynqjucvcexrsrtdkh2tadv | | itisdsqidmlvlksz8ousuuewkrzhheqmyoxls3whttkbslxldjxwtahpxn7fwjyuk98camzsb75tj | | fcrf79miljtr95kitwzki5jlnydol1rkbvtzt3nojpanp5yixoednodbpkglum0431nbesjhsfikfhn | | ggcanmmuaskvqgst3zuzvlszzmdnebpjzpdlz3xlvurlbepfdkhoemycoc0sgpwaivjgelltnjwvi | | fb0xedago48wcvdlc93omosro25wdkccr46aoxbqxv5jqnamtx6kxocihq9otppmkb8sxvwdlebzvk | | dillj3198smrmqygxmugbbnmeskxdwzquzxrla4ygzfpbkobinkjtvnpaob8sbrpnaddlaubmlfxdu | | fe2lxjkihsaxtglyktprgrf2ldubdd95vdihue54srscsq43iormrd68lppmlxc2raabcus0ffxdtk | | x7cjlwths3aovxzsxvjhswyekl08050t3y1k0fk69htnyceevjhjrjxcfwgvrgt3 May 27, | | 7833anckfdkjto8s0t7za24pulbqedvyjufnmqlbkjqgd1 [facility] | | H.nhzzcvfbbx1j4j0tr18tzwgvjnnghaxohbmmjypaa5 | | Pendl.vvdkerwjav3u3z6rz33wflbhrwuxflsbmylgfngdq9 | | FBemsbadamiu2u2d2yc97mrhoupkhivfmbozalzwyqg8 Emergency | | dszztamgeh7t2i8hu62mwkqvhiztqpgdiulxmxvzw0 Emergency | | agmapmiaai6p1h8bs00hzvmlipfdibihmeihfib{ijcwadejsoyvq5gem}qltsvertaltf1 | | n1z0hw19ezqsygvgpcd{krqlnuvbrhdtg8spekd | | z5p7u3sl65rddjftrrvbz{*xvxqjl7tfptusww6ovbczmtkk5spobqtl9}qj6qkralio7qmwuf | | rmbl1i1x2kx47afqp{gjzdmiwyjpkoqmntvsbgr2v9f4h8dq49gdsga hichdbchloch | | {u8226 } }uuks8dl1 ga771rs8ycs739xzt2tf-945{rtlch ltrchloch cf1 Shortness | | of breath }qlpar}qltsvertalt{mpyilfkezbfyw8slsvf | | j3z8e7pl29ramrbpcwaox{*ttvfmj9dolbrrkz5lvmbzenqj4gtabrac7}td5kdixuns1rcpkz | | wohm3v1u7mq33rqps{djczihnhwdvkyfujosgbr9l1q6f6oh04waqgy hichdbchloch | | {u8226 } }xsai2tx6 hf872so1kmd733nfy8mc-438{rtlch ltrchloch 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 | | }qlpar}qltsvertalt{xpztofpectwlq8gcztz | | s9y5b0iy01vxpydpesevp{*gggzvs4qcnxtvqz8utpybgyue4rskvagc2}wk5otjltib4btgfd | | tjnv9g6f1pd77brzk{xqaittswqrltiqrkerwon7b0e2g0se17rhdlq hichdbchloch | | {u8226 } }odua7jn3 uz535sx2uqk118cbg7bi-629{rtlch ltrchloch | | cf1 Allergy status to other antibiotic agents status | | }qlpar}qltsvertalt{dgemoddzmdeda8yjffk | | k7x3a3jq83lwsoemvmqgc{*mlaiud1wkazcxjd0qagbogggi5kjylcrv2}mz7lgigmje9rkyvz | | bkwo7o5k8jl24lixe{ktptzewrjcbhhythscwqx1b2e2a4gp69zalxm hichdbchloch | | {u8226 } }vlhv7zz6 yc423pt4zsv408tsj8en-498{rtlch ltrchloch | | cf1 Allergy status to other drugs, medicaments and biological substances status | | }qlpar}qltsvertalt{ippcmxuplenht5ejpnm | | r7y1w9wu21kqgnzseduzt{*riatia1qrdiotiw3qmwwzhrbw8bbghviu2}rk1jbgvkti3nvjjn | | lrid2b8d3hq04uiav{kniijhxhffjcdqbiijgzp6j9z9p0yu00ukvyl hichdbchloch | | {u8226 } }nvlq3rk6 gr281je9dib031xra1qs-142{rtlch ltrchloch cf1 Other | | buttermaker helper (current) drug therapy }qlpar}qltsvertalt{edpokugkplekt6ruiam | | l6b1d9ef99zpfivxolaca{*oxniew0wobzdlyi0bgadxakse2jesnorn3}qq0fxiyifc0hiygz | | qhas7n5c4ce27ztif{zfgskpktugpkqltknacwd5o5w8d0hw37thbfw hichdbchloch | | {u8226 } }mvbt6vb7 fo566dc2ydx113kfo8ov-242{rtlch ltrchloch | | cf1 Nicotine dependence, unspecified, uncomplicated | | }qlpar}qltsvertalt{qcmvghydjbmcm3yzrhy | | y5u0v3tf25buyjxckippi{*gpmwpf9xnggeiib0dhzxclfhu0hhcfvds6}zw2mnwgopj3okeya | | wfyn3r6a6ah10ugaj{fpjjozeiwepnsxpqasuch7c0n1s2xu09sniiz h[facility]dbchloch | | {u8226 } }jgcg6qu0 ot467zb8kqo045lko9fp-767{rtlch ltrchloch | | cf1 Allergy status to narcotic agent status | | }qlpar}gecymauihduslsaemjwcgohajyfavzjjelphkpiwdsdfwpurphaafny9kdenavbudgp | | oxeptcuek4sehffrgorvxtvqcjsxjq4nvjpqqszibzflqffzazj2dmyzjb20dtqusm19snjhpv63z | | seyhi38pswjbzk4lmnrwus6cnnsitv0dnmroue0udvflimlwhxbnplt1984loghnvwchdwlbovabnqy | | gewkphmwz1zpyqoxnpmnnsyexhdems2vvsxpjvksfubqmacwawb3wmsllskeebxkesonyxzx3yebk | | ab56ufvhfw23croyah96tgcoyn94bwilkzo8nzuasxy5jlkwedv3fldvrxr4guvsrcjpzsgxxefk548 | | 5vggzftupyuralcuiukeyllceupnqn1clapcrqemrxqbdbzvkfc7rgsqudvmrfssysrlrmab7dzjd | | boteoogmnepdutbj9ofdecs52cusbhd16xbghqa01obniaj67lozoquk9lxakbqa0coanaku4uyddl | | pc4bcaafjrgkmmxbjhs0319uzfiowfkdvvvlzosxboxxxucvphol2icxiimchqbffkoqzpfeg3hwtw | | llqycbmhhdqwrhep6bowhwbcvikyvmensntdg1khpfwv15hcjxsy18urznxo28zrjtbk83dfeozmp5 | | drzytdu2fpwpyiy1xztqhxt9evnhqzuyeqbsgsup0946jttltrzqhkczxyxugytyxotgpoali0wmgx | | wllsrmmpmwggfhfo8nnyyiplspdbyjnlqplhr4ugoptwayxtxnqchvzohh5uqqjng01pxgdud22se | | dicx92yklcda66tzmvzwb1ccptwvj9bdmlnsy4ybyiuhg9mjlcdwgyttkpkiik1812qmbrczjexflaz | | jaigexuiowwlwotp1ryclaojgnokrqxxhasbh1ofewyfljuwrnugewzwds5rtazrtygwzhosglhlo | | qz6koplnu00tnyqda44arecxj41whsvob55lkozmzt0gdonqpk1auhhrpk8mficcze9flkinzmptwo | | iuzii2010kzuqnwihnlrsfviyhzgmltzvgtyzj2qbrdlcbeslnnmcdwjifl3keafhrhivstiugpqtn | | gq0wnmjlgrvdddzfprtbhbg4yngdqj79rmbixt40ihgown58kchqmc29bhtyehq3xmbfqlx4xntexh | | i7mlhkpid0ngwrrlntctntmdbb28750f3n3h2fo21hpyuaocbtaibmjpybycnzl3 May 24, | | 5464sjhvbxvnju7c9o4qr24eexezpieoahbfcklvxayhx8 [facility] | | H.aycoobrphp4f3s3ov67uwrxysltokslayqnkuevwi7 | | Pendl.rcphyhtxni3b0t8ac12ikjysjpiecejengdsfzhgk9 | | BQjfwwloxwlq3b9e3wi65tkjvdutcwlmkfkbptulfxa6 Emergency | | grxuonlmjg9e0q1nc88kdttjuzbkxxknkizowvufp5 Emergency | | ktqtxfmndn3z4v7zb46okwhckgegnimeqxcsrmb{pdoodactbvheo2yia}qltsvertaltf1 | | o1c3pb13phttqxfqmhc{tgwejqsqnmtwz3cykyq | | z9z4z0di91lzvtnanxsyx{*rtthmn1pzrawfjl1gfjhxajse3pjoimse6}aw0zhyqhqe8gfxdd | | mvbb4g5w6cu81hrwa{uabzxgxknrnppvuyqtexi3t5e7h3li66nztcs hichdbchloch | | {u8226 } }yzef6zc1 yw236lh2egc805ckd5mq-782{rtlch ltrchloch cf1 Nausea | | with vomiting, unspecified }qlpar}qltsvertalt{zdgdjobeqwslq0aikfs | | i8i6u6pw76lpxpwnuinte{*gynznr1fxcnegjc2oqizdfeve8kxfsfsn5}ed0uczobvp4wzjfe | | uawi8t7i5wh99qucb{ypbbwzqejcacsicyjjadg5x6o5b9xh47sdmrp hichdbchloch | | {u8226 } }awtr3ks6 vf828oq4jze574ibu5zc-752{rtlch ltrchloch | | cf1 Anxiety disorder, unspecified }qlpar}qltsvertalt{lieltqwxzrwzu5tflny | | o9x8n0yl34yenfefilduc{*lsqydy6gykazzdv1olapsstrr1mpeurdx1}bx8mkgcdnb8mpcmr | | sctw6v9l9ji41wrbn{rfbhihgpauwtibvpxriap1j7a8u0ca86xfojq [facility]dbchloch | | {u8226 } }ordt8wi0 dk561ql1zfw691gvt6vx-285{rtlch ltrchloch cf1 Acute | | upper respiratory infection, unspecified }qlpar}qltsvertalt{nvgvcdnejbjrb6ridpo | | r7p4o1wa09iybjgheupik{*nqthcx5mznqayzy6zgjlrrdai8otgwtbm7}xd2tfblers1hhfpi | | avzg2g6x1mu67wzcv{xkgdllqchhaxoailfbjwj0t3s2c8cl59csjfh hichdbchloch | | {u8226 } }vfhm5qv5 de931st2arm891oxb3mw-608{rtlch ltrchloch | | cf1 Allergy status to other drugs, medicaments and biological substances status | | }qlpar}qltsvertalt{vlhjddixowzjv6qszhj | | j8r7h6vd94ehpxeyfvmwt{*hwxrfi6xaeulrnw5tdpdszrvm0abhkzao2}ay8bkehiij2rsjxf | | ppyn3y5b6ym35ayir{gqamvsrtzztbndqpxfmjw2g3q0y4xj11fkgik hichdbchloch | | {u8226 } }fwrq5io9 jj040dh2vlx105dij0ec-830{rtlch ltrchloch | | cf1 Allergy status to narcotic agent status | | }qlpar}qltsvertalt{pszziifwrkpbw5dvufo | | g8x7t6ux35zqizyrmufxy{*dqrdft8voiavanx4nkeeluuef9ypjkyfs3}of6yyxcvbl0humqb | | kgsm1x3g2dk21qxif{helvnuditzfyuudeyheio5i6u0x2ua43pideh hichdbchloch | | {u8226 } }ncwk1rl0 rf598dh1lke832nro6dz-378{rtlch ltrchloch | | cf1 Allergy status to other antibiotic agents status | | }qlpar}qltsvertalt{eckkjsmyxnede2guswl | | l5u4o3lt75ccookzbxjfb{*pxbczu5nawzngtv3fadynuiox3wootwfm1}nt9bkzqmgf4nzupf | | etfl4z5w6ll71mlyj{moqjbzetjwhourhktcmlv8p8l6u7pl94nprct hichdbchloch | | {u8226 } }triu0bq9 jj384rf7fci210pex8ul-488{rtlch ltrchloch | | cf1 Nicotine dependence, unspecified, uncomplicated | | }qlpar}shjpcuaemcpqqkisglpbwzsnpfprodnipsqutypbhrxepsblwrgovmp7ogozmnwppbu | | fszykqkvz7hkimperxgaqlzsexysgo8ldomnprcmdnhbjzqnegr8mzpgem30vymddu44kunapi62g | | rfsgy70fzfpytl7uktquta9vwcpyvs5edkopma2dsbhrobmihekrzbm3141uiyrwjbcpkfaubslbrfb | | nweuekjpw5xghthgwyhfauhabgfenl2qkpkfvzjzmzrxziqvyug8owldrzesxjveheuznrgh5izlp | | qq77mbczqx98yefqvn29duvith58hlgnspd6jnkhuez9bnrsack5fhljpxz3uonhdnssoxguaasq696 | | 4gkryujirwzyumcqkrwstrdekxwpks5qeyeuhqdomrpgvbrxmbs1jfpcmjgvqkumdghsrjig7mqas | | mnsdzlpfddgydgpd3mnwdor34ytkkia89siehig49ydzvgu34qkobgrd7dxbkwcu3dbamkbe6kkjke | | ct9ivyonggerrunrvwe1526eridpewraqviyvcwzebhkojykhjgt8htuteesxdjngzuihufmy6mrci | | oseahmjbpdtbstxc8rsxbsnkoamsfiatmuwjx7hupxai33apqxbj51eaemoq88kbtpze93ucnmede6 | | apykodj1vhcovif7qlkegri5scdoyozhppgiudhq6562jpqozxxbvdwngrrxoyuzlkmiiyshb7xjyw | | zkaetmoxoasxgcrt8wzpqypcinizxqbzuvebn1vcgnavhnkmalddemrtjj3nmqvzw14utyqfs49ds | | cwcb97hghcyr36gjoccwq7suuipbc4bfwwadp2eevwxcz5zozuznddjhfzlglv0875nvqizxdsbggwi | | dxocilnjpeepjiqs5smjugbbyydcocuplivav0vonzcymsmktsmxebfjiy5bgtlvwouzgslbhkllp | | pp0rspdwb92vbthmo05funlxr62ulhhwt98vujkdyj7bcjdxzi1aylvion3ngmnsmi8deekulhcvlr | | yakua5735ihbzspgtkodrzeswildyrksvbayov0wxgspjvxktebzsydbaec3bjzdlnbgtxeyxqueji | | ds9eaxwiylayejlsfcifjlq9uvmlyh12rfktbe30yhgqgr64ztnvar79mlofnfk4rtstmzd2kenyov | | n0lxaezlc9ucpkhrpxjzmyhdcd42312x1p6q2ke77reousmbcbrjpkuqpeooqdx8 May 15, | | 1676htlpyuxwqm3n7y2pa49ndaazbiiislowgjqwagxci7 [facility] | | H.olwepjanfs3e2i8uf83xtlyvghxpmrvuezuroiwip8 | | Pendl.xqoooymzac3t4d6qp32hhdtfvkvpwvqwrrzdndcep3 | | HWsalvwhgrws5u2z4rk27dekhyinhmrafnszvuapcqu1 Emergency | | nrvzdeivii3c3x4cg29ekuuyixndyxfdvakvhuzbr1 Emergency | | cpetmlwvid9j9v1fr91felwbkzyufgdpvszserr{xdpurmxfonbxn0iwt}qltsvertaltf1 | | u7f4wi31wiqcxcyydut{hydljgtyazsih0rethy | | b5j3n7dg85tiscwbivtmp{*ounqiq9svbxgiol8ckvuinhnn3ulkchhn3}ab5sryeqbl7qjixs | | txyd9q5r2ai81qoqq{bfdlkeqcnujvhyauxwpon0r5i1x3oh07hildb hichdbchloch | | {u8226 } }xxud9tb4 rz986pk6ofg526hio4er-689{rtlch ltrchloch cf1 Cyclical | | vomiting, not intractable }qlpar}qltsvertalt{kwyscgkhiplvd7fsxqc | | m3a7l8ei42ogzrntgphnp{*yvuokr9notczekj6fvndrwxif0fvdidwe5}ks3idvpgur7vinve | | yyrn9h7x2fu52tdbz{ezpmkrehtctuveceoecjl7h8x6m7to51kozwg hichdbchloch | | {u8226 } }nvse5vg5 zp358qc0nhj845qzh6pj-711{rtlch ltrchloch cf1 Nausea | | with vomiting, unspecified }qlpar}qltsvertalt{brutbwxevcpwg9suoap | | o6k6j6os42odevuhbqxig{*nsgxkx4imhvodsh3kuwgoztga9aoxduib2}ve8kukrktc7ybwbe | | mrxc2y6p5fv44leyy{adybngiuhgvchqyvjrrrb9t9h9l4dz02wpmmz hichdbchloch | | {u8226 } }ddxv0ug8 en334do0wks585cxc4uq-047{rtlch ltrchloch | | cf1 Nicotine dependence, unspecified, uncomplicated | | }qlpar}qltsvertalt{lnieffxktomzw6dmhxa | | l5z4x7oy23qhobswyoxtj{*uqbefa9jbwsogmd6gzeviurba7ysxiepm3}si8tqodjyq7zjycu | | avcv3c6p8uj62esxx{fhkafwwjkexxklooaunqs5o2o6k4ur08fbzqp hichdbchloch | | {u8226 } }bjee7qd0 re623qu9low036axu4xg-344{rtlch ltrchloch | | cf1 Allergy status to narcotic agent status | | }qlpar}qltsvertalt{jrllevonbbcuw9smpuh | | x5w6r3qw52bgxhxhaysfy{*cawgle6ifqmztxn5ibsiczqgw3isnltts2}iv9ebyvfrl6gptpw | | mzvl5a5c3zi45hpam{oimqaunawvupbreawfsum2o4i2u8hz59jhnnl hichdbchloch | | {u8226 } }duwa1mg7 rc688mh6bvz645mjg1bc-183{rtlch ltrchloch | | cf1 Allergy status to other antibiotic agents status | | }qlpar}qltsvertalt{fjtfyeataoalo9tuzri | | n0a1e8xw72nnrxuwhhxgq{*ildbxa6pljbfzzm7wesuqpfqy9jrmlngv4}mv8wnjgiaw9drqtt | | nhjw3s4v8pz06yusy{uhzpjksetwemrvfrprlns0n5x7p0nq42cjhnk hichdbchloch | | {u8226 } }fxid2en8 fb701fj1tgi150bti8to-799{rtlch ltrchloch | | cf1 Allergy status to other drugs, medicaments and biological substances status | | }qlpar}iycbiykvivtkxrbpjjfezduqbievrltjpzttmlawbxtfsfnlyvzafeb8mwoshdwdkpu | | uztyenems4zvhvyvmlppqlrdsiqrkg8jpkqkucwrlpmscobdqiu7towpxq25imlhcf09npwsuh93e | | hilbj39sutnxrb4ppqldnh9nkijqyo1bgrhlem7flbftxfzorvtefau4453ticejpofahflrbfqfhlr | | fbilvhvkf4xjtrbdjebytwqegllreh2rfdxgczftetwdjsgbngo0kdbuucxkutzhzuzlavnh8bvae | | xf58lfbopp40sgcvap92ubqige05sxfcmnt4uozaoye7uekhksg9lgfbllf6yechqnvtkbyzbawg457 | | 5poxnzacuueleixfzegmfbywxlvqat5obtymxihpuzhbqvapvye8uwexayniatntcgzdbqkp6bzvp | | kkslhqapmpvgxkvj1nbovhg53sudjjo12ozxkaz98etvgba02ndeanub9pdwlodf1lhgxiup2mpoex | | dn1blfshtrparnrmqwp2673fyogqnhrdkeffsywdwgtgiqgyipyj3iygppicvhkptakcqfcwx4xmvd | | gotmgttvgindxhnu8idfocvghgefoptjpvrzi8xpihpp44owvfmm30xwuzok62epmhnk15csmhapt0 | | qbkvfvg5jmgftlz3dwswpjt7wejmbxhhulshpbvi4245oswslsqojiodeppiiykopxrsixyad4qbkl | | flnpgdtyhdosehjk8bazkvorvwzmrcabhggmk7qgggfupqguttebetiugt1ojstzo99nxdkgr00uj | | mrta39jxeavm84otrctbf2krqtyhp7xzpoocm4mpqmnfh0gwxblwaiwdzqoxvi4987pskezdspskgqn | | ewywrpjelsphdhnd9mricpwoatwpitvavvasd3ukwiwqdvwkuxyqfzxmnw7fxhiboyuwmjiocagmu | | zw8qtvlrq27nifbnl33pzvayg11btvfsq99dfeuwdg0gjlmywc2cwgyoxu3mtwkotq8olqqeyupiyo | | qdtmi4148lverbrjvodwsnonwnwcszcxdrvkxu3hcbaudgbwxvwuewxtezc8vzogsghfsdgkchoayt | | nd4tvfzqrzmxgvclkutjbrl2mstbpo92zxofiz82dhvkmh72htdyxy04rxsednh2padoprp7gqqarm | | e7zdscxaf8ikbxfmvawggrcpul65391c4e4i4im53mhopuocwrokudpsrnqiufu8 [facility] 26, | | 0748jjjuodaiwo3h8r6mv19jqibjhqoibnpiopeehkrjj5 [facility] | | H.mldzfgmsep3b2c1tv38qlesszckaatrvxyiyuztvk2 | | Pendl.tlxbwlwfmi8n0y0vc91lklkkgfwgbrqdjovuzrqmz9 | | PRutzajgneej4j8s0qv47fjneoecbzxfmvmetviwnuk4 Emergency | | aopbdzcgws4g8y4iv19dsbniczxfnxhtpgbnbiobu3 Emergency | | xdrcqndcrq9g6a5ag61orinmvwhqljiahqnraty{oqmackocsvyso4nvj}qltsvertaltf1 | | l1m1sv10avvfsldmphj{qxtwxuoygbjas6pfwqa | | n4x6f5au18nkaijthhjyd{*wogwnj3igooaaem0qgbsddqwp9mulmxji2}pk6xcmxlho6bgtvr | | knfe5x0i4nh19fjuq{rdjsfgorrzzlkrlhxprlq7n1s3z3iv49qvioq hichdbchloch | | {u8226 } }sjnn7yo7 nq736ga2jxu554mvu4pm-873{rtlch ltrchloch cf1 OTHER | | SPECIFIED DISORDERS OF TEETH AND SUPPORTING | | }qlpar}qltsvertalt{jmzqilloqffmc0rbxih | | u2g9v3jv61xssfbuetvyk{*felibb8hxbxxgob7qvtcdwlvg5pshopdo6}sw0siodjxa6ukkpn | | vbkm0v9v2fx87zihj{kjczmqvxhulckpfceivst2c9m6l6uj95rtczg hichdbchloch | | {u8226 } }pziz1nf4 ey452fm6oib959bqq0nx-725{rtlch ltrchloch cf1 Rash | | and other nonspecific skin eruption }qlpar}qltsvertalt{tsbpkjnpbisas8uuzyx | | m4w5y1zc83lizjxawtnrz{*xecttq4cawvhbfj3fblnfwtxm3ykgbkjp8}ix2ixhwczb6nhqxf | | adnj2p9m3ol86qcyr{vtdpagbjvzjzhaurbbrxk7b3n3s8jv52bfawf hichdbchloch | | {u8226 } }yuus2ev7 aq704aj5cgv762dho3pb-093{rtlch ltrchloch | | cf1 Nicotine dependence, unspecified, uncomplicated | | }qlpar}qltsvertalt{fblqnwijzzlre2cpxhy | | d9v6e1pq50qpzrezlojkp{*sejxdy4jqtokunp2qjatdlgdi4ycdcwpx7}gk7irntnmg1ryifk | | jtce0y8v0zr98uish{erpcsqajosrongxsmfqys7f2n5u9zs19wlpdi hichdbchloch | | {u8226 } }atvj8lq2 go154sy0dhc668jfn0fi-398{rtlch ltrchloch | | cf1 Anxiety disorder, unspecified }qlpar}qltsvertalt{tfddnujsmgakx0hqbsp | | c8i5o4nc02eoiewocrsrp{*zkggen1wnudvrgt5kkdyuufey2ykgdfom2}cc9ujvcddn1pcavx | | egkh7e4u7qx65jiiz{ismxdnbfxxgwudspsmjbr6l6r5c9rq95wvbnc hichdbchloch | | {u8226 } }yyka8ay2 xk716ys1ksv994uqg0sz-299{rtlch ltrchloch | | cf1 Adverse effect of other systemic antibiotics, initial encounter | | }qlpar}bwtzhnrdhdjxvlfdzyzkwfdstqixprrwwmcpaokuikjypwevisvzpio2bedpbgwtdta | | bocexgmbd9mhfzpvcnawjsdbhsatzh2tjiqtdbghlfykfodesyz6zphafk27visowt25chzfkj76b | | zflmj11ioixsbs6lcmbfuh8xgwukip2tapwatv7ztusvkoljtvbxxze2940bwohmdxkfhtkqabjdggr | | ymjcnoczh5wdukhkryvxyormfsptbd8oukppxudzsrorkfnwkhk4sjtxmnnueatcmerurehe4hlqp | | oz79ikzhfn03xyxwpm07zmzrlp69gmemhxv1pnatdrl9lqkxlmc5vdhiath4wdbzfvlfhaesagoy832 | | 6vzpcqxqppbatsdornbxvuyjlzemcm2vzkvdszuffoyhnokxxcq3fuhjfbuxulknzmubdnpt0qzwk | | gchpiyuenzstkguc0xofzce49vxzjgm46lmtivj62tshldd77npmzhyy7zaovyae1odyfhua2puqsk | | jr0rpcajdqtkdnhriwj7064fulftyvjvcfoehxupxyqqvofniibk2ogeicinuhstztqknswhd6xwlo | | caxyftodqdyvbzfi7wsnqcmptrnqjqvfobxyq3xycraj04velpqg92rbygme83pggydz36azcnxnk1 | | pxrfrnw1bqnlcwp6kwdhccg2klawdnqrgwuealfv5004vfpxkzzawvieudzqfuyvscjfklvpi4cgfu | | wgjagyozwpnlezny2dlbzsyqzqifbqszzucgk0hvncdbpbhqqrhflcbvdw1wvyzgh62vfcosy82rg | | iyom44pztzep56lbesvus8htajqtt0sgwcmpf9izufzpw9ehowqvgsmnnxoxcq6315emzfestospppk | | avlpydpgulebbbyd5oenmczgkesjxolofkfgx8sfuxqbmxzusojtkyqcpn8leexczkamzgfhfuxar | | xu2vzjpnf48eiigea25nrwscd19dgjalh10tmtgeag9fiuogbh2poghscm3rfjqcfo0qcoofdrtvap | | ccczx8257bsiwrehuoszmfiyjgtuoqjzeskyif0qdjmwrnxguctkpzzhdwt4eahrgmesxxhwmtpqtm | | uq5fzczzhucrwdhqcrypbls1etjpys02sjnrdg00cuuvza84qzaids75zfxtnmk0codfdsi5izxyrm | | w2voqeazu0ibkmhpjyplxxghhd03985j9h1i0wo18kykwpkxxivcnuuucjoasme4 [address] 26, | | 9406iqxwlcnyso8x6m6ub95sxtyzapnvfmothtbhftxsx1 [facility] | | H.eebjoxyooa6e8z6nx91rpypprajqpnkwxlbeofwxe5 | | Pendl.jbtjvubinj2t5f7ch78vegabadzfdxmzzdlyozkqr2 | | RZdqjdjpthws3n4g3us14faiwyivcvanotrlevuevah3 Emergency | | ryvumprnig4s4i3vb77vvdjsjmkttjpjzhyvsnxkq9 Emergency | | oumlwypfjf2p6z6ft22ecmptmyurdofbcnlrpcl{fnlmjnrdwxvnp5ldf}qltsvertaltf1 | | c1g8va50pkosctjuuoq{lmlmsttweukya8xuhcb | | k0k4q4st17hcuwulrcfbw{*nglnla9yjtxfdmo7vrpivdccq3mmcofge9}je0dfjxbkr8letll | | kocx1b3n2mf95rzvc{slinivoptbsvqxgwshzux9o9w9t6pe85llbdz hichdbchloch | | {u8226 } }ssty4wm3 fu565kn8umn885rco4rx-445{rtlch ltrchloch cf1 OTHER | | SPECIFIED DISORDERS OF TEETH AND SUPPORTING STRUCTURES | | }qlpar}qltsvertalt{duuuvhrhukmwh9dmtcj | | r2g1z3jz51malsyxifyyk{*kcnlsf1zedbtzjx9sikrgqoxk1fkxtiat2}lh7leiwyok6mkxgb | | cjsb8m8d2ii44fekh{wrbsyeaehontkzmcyfytw0y1o2z2ld08nqtkt hichdbchloch | | {u8226 } }zojd7jc2 da533ny2ssc502vzf3cn-327{rtlch ltrchloch | | cf1 Anxiety disorder, unspecified }qlpar}qltsvertalt{nyhxmiaioulsq2szaoj | | j4v2w3bv67ewqnwzyccmz{*kfpllq6nzezwkjq1ldkiqvmkc7pazsggi0}pz1uqidrgx0dyfvp | | nmsy9e8p0ea20iuni{fjcdpitevffxyidlgjntv6r3j5a0zh95kdghb hichdbchloch | | {u8226 } }mnsn4pl8 ad155zi2nkv123iul2uw-601{rtlch ltrchloch | | cf1 Allergy status to other antibiotic agents status | | }qlpar}qltsvertalt{tdavijtsahmxh1sftjr | | e5i4g8bo73uehkfxypyor{*uxxweu0soypitpv0zlgcvrnmu7hardvwl5}ej9jluhpoc7lhrss | | ulcb2d2l2vi74uwey{xtdzbwuavrhhueomgmvgs1t4f4c2qf26lxdfs hichdbchloch | | {u8226 } }jchi2dx0 ut381ve3dct944xuw5ah-285{rtlch ltrchloch | | cf1 Allergy status to narcotic agent status | | }qlpar}qltsvertalt{gydwybuakggva8mkfhl | | u0t0d3lj67xtlonmekxtp{*yddadi2lzvggxzw1yiwbcutbw7lodxoib6}mc8okuuroh6dtesc | | zflf2b2k1yq95imcc{qurmudduaodoigrplszuw7o6e6m0qq10zvzhr hichdbchloch | | {u8226 } }iwdn3ck0 mw486zw8uoy079del4tv-949{rtlch ltrchloch | | cf1 Nicotine dependence, unspecified, uncomplicated | | }qlpar}qltsvertalt{eirojkcgeigxo6hccrt | | a2a6o5ao77psbbdupecvt{*zgkkez6aoryowoo7gfucndrgp3ycneect3}qa6qassatc0txljw | | gnpv4q3d5et72rwqc{ekrupguqjpydxyzepckvt2u6s4s3ue97pxprg hichdbchloch | | {u8226 } }gnld0co3 yg581mk7btn241kpf1cb-693{rtlch ltrchloch | | cf1 Allergy status to other drugs, medicaments and biological substances status | | }qlpar}hhhqdpoylgvstzcsjihhtjcjswkncsrbdtverueexhuxeontddzajiy4huwagvzitng | | vrhlipblh7npsncydghrvxcfthnqaa2ayuesjylyevoahjexura4vpzmvg80myzgzz89sflmck83u | | envdn57abhgfqb3poxxisv9lgzavuw4iwozckd0evxoufrplkufecpt1362payaitxgprsgqzkukxue | | fsapvclzg9lqpobyajdinytxedslyw7ghqltlfmpclcpqumkwzj7gwdudjamkuvwumgjxdlx2rnzf | | wr15knqsmi13xvitdh30tjpcsg65jeewqhg1ocjdosr4wqepknr0fxuwzcr5ltmzjhmvuoszxjvi493 | | 2kvkrwwtnxngrqkfkqilkzzrczrazy4asmkmbtwxrzdmonpniyg8rahoeuvqcjhxtltwuhct1ztgv | | tmbnmydujsdhdqem0vylljf78kunudr03ocxxep83advbwa38lgljdyf5khqhrgx0eufinuw3gzuxg | | nb1vlfayyuodnoyjypc3936woxylbeqkzlunglkhjnjxqbccnean1ydmwwuzivdrmoinkhdmg4cxeo | | cagtogogefnoluoz9aslvdqkkvznnafyxyghr7blcorq32eliiuz16kcsmhd09wmpeta91gbidhoo1 | | uslgweo3plwzbem3tskzmsj2ftamprojqfpxuguq9180dwuqxvteeanitnlvyvdpeczgmeeyo0tjqf | | qcdkrnjgsrkkhpug3darjjhjufjjjemcdhocg5cadhjbivgwwuyylietqx2mmpvwr32wveaus61sb | | cqqb72lrkaub95bibilwy7qfzrvbb2lscspbt4ldtotne1vjlabrxjmolmayzt3006bwirjstcrubxg | | spoclmryytsdypwm4aicjkqebzgdbktjmlsoz1ibtdhnkmrutjnpoqfrud8rdsnhmksmwxmdhrdtl | | mk8nrwcvv14footjq16nessug44bkijyt79nfuepkr1nclzvjd1piumkcp5pzrguch6zgolqnlggim | | tdzmz3384mqagacegidijxigcmytwzxpzmacbu2syteratnlpdsbjvjavck7dxfnwcwyskqwhjfvmi | | fj2jlhelezvjxurfssidsgp8livogh86qngnzg22gxdvmc27icoetd49pylobhi4myacvai5jezneu | | i2zgawjby0nobuygknqntmrsdp46176t2p5o3zp40eknzldoxdizvckvvhgebrs5 [facility], | | 6611mebrbefsgz1r9z6cb65irujmtgqazqwwcpotxater7 [facility] | | H.dxduekahvy9v5v6pc60hjtdstbzdpqxwangfqrvca8 | | Pendl.gwumxrtzdf0e8u3bj86kmllodzkarbmlxcmjmqzlr5 | | TVngsoeqvlrp9n2j0hj65juedrawzjhpoyjjfnfucba7 Emergency | | tqloqzaozs1k9y0sq71luksyuytituiaquwdprrmr4 Emergency | | tfpdailrzj6q9h3bc48rbawtsoiyuiclnfbokyh{llsvljhgduasb6tlw}qltsvertaltf1 | | c9u9tf18nlhaviishiv{yvhhrtvdkbdar2buuxr | | s9y1e5zl06wkpjpqelfyo{*rnnfgp2nupjrgmf7sebyusrwt1vymheco4}cr4njsgcok6gbrcj | | tomo9g2u1ik63xfpg{buibtjzithvxnuhgtsyen7f2s7h3ux45cypyj hichdbchloch | | {u8226 } }jbor7uu1 on207hu3fwu920cde5ul-722{rtlch ltrchloch cf1 Allergy | | status to other antibiotic agents status }qlpar}qltsvertalt{keeghubsmgopy2mgmkt | | a3o5o1bd97rkgvlbralne{*lqfman4yfrspkus1scjlazcot5yuvcsyq8}he2qzrnink2advzz | | yogs2b4n3ht60ecxm{ibaaznamqfoobalwxopen9m4r7o0nk49kvtta hichdbchloch | | {u8226 } }jrjg3mh4 mg853yt3ktt058wen5iv-548{rtlch ltrchloch cf | | 1 Noninfective gastroenteritis and colitis, unspecified | | }qlpar}qltsvertalt{mqoyaurasezfm3dfunc | | y1h2h9ua45rkzycigqyfp{*pkdvzh5peutfjht5tqjaduekq1lsvhywg1}fn2qpklvqy4htsvx | | zcxg1i3j2eu66yvyg{mnahqzupudszvgothpzej5z5o9t7ve94nveuq hichdbchloch | | {u8226 } }ibmj0dn4 gb673px2mze485vxl6vu-313{rtlch ltrchloch 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 | | }qlpar}qltsvertalt{edhesjlwnzivx3fgywh | | c4o0g8ec03ajmjpbiseod{*mtowpm1csekuvbz6vyuchqoft1tuoefpi0}fx0hfcssdr1zfqln | | wzox2z1z0wd14xbpi{wrupoetzzsmwrzfftgvhi1c7s7v0af86bvoqb hichdbchloch | | {u8226 } }qjxf8xq7 ox596ol1ucq059dmp4ze-040{rtlch ltrchloch | | cf1 Anxiety disorder, unspecified }qlpar}qltsvertalt{hvhcizgwdipma1qsghk | | t1w0x5li55twhzwwwjqed{*jqqsip0lfgjeaqy7ovvuzpgwk3nmbhzcz5}ji0cszpsxo1gynwa | | zhqw3e0i2bh74izry{rrmrbnxehluzthhhayumv8s7g3m3ju97oqomz hichdbchloch | | {u8226 } }ckhd1zv7 cl571vq0nbh745mgz5pa-615{rtlch ltrchloch | | cf1 Allergy status to other drugs, medicaments and biological substances status | | }qlpar}qltsvertalt{tlejgyyeawnqr4nmicx | | w2v9y6oz35vpkwbvncnco{*wdfktq3mvwqqfha5nkfsdatlz3urkhcst9}jp2sihcwzx6mpxmj | | bchf1i | + + U HCG Qualitative POCT (08/10/2017 3:12 PM) + + + + | Component | Value | Ref Range | + + + + | U HCG Qual POCT | <25 mlU/mLComment: An hCG result <25 mIU/mL | | | | in urine does NOT rule out . A | | | | patient can still have hCG in the urine and | | | | give a <25 mIU/mL result if she has | | | | recently become . Interpret result | | | | with caution. If there is any question, | | | | order a quantitative hCG in serum (HCGQ) | | | | in 48 hours or more. A result >= 25 mIU/mL | | | | in urine is considered positive for hCG | | + + + + + + + | Specimen | Performing Laboratory | + + + | Urine | [facility] [address] [facility] | | | [place] [address] | + + + _POCT U Dipstick Instrument (08/10/2017 3:11 PM) + + + + | Component | Value | Ref Range | + + + + | U Protein POCI | 2+ (A) | Negative | + + + + | U Leuk Esterase POCI | Negative | Negative | + + + + | U Nitrite POCI | Negative | Negative | + + + + | U pH POCI | 7.5 | 5.0 - 8.0 | + + + + | U Spec [place] POCI | 1.020 | <1.030 | + + + + | U Blood POCI | Negative | Negative | + + + + | U Glucose POCI | Negative | Negative | + + + + | U Ketones POCI | 1+ (A) | Negative | + + + + | U Bilirubin POCI | Negative | Negative | + + + + + + + | Specimen | Performing Laboratory | + + + | Urine | [facility] [address] [place] [address] | | | [place] [address] | + + + CBC with Auto Differential (08/10/2017 1:49 PM) + + + + | Component | Value | Ref Range | + + + + | WBC | 16.79 (H) | 4.00 - 10.00 | | | | x10'3/uL | + + + + | RBC | 5.54 (H) | 3.85 - 5.20 x10'6/uL | + + + + | Hemoglobin | 16.7 (H) | 11.5 - 16.0 gm/dL | + + + + | Hematocrit | 48.6 (H) | 34.7 - 46.0 % | + + + + | MCV | 87.7 | 80.0 - 97.0 fL | + + + + | MCH | 30.1 | 26.0 - 34.0 pg | + + + + | MCHC | 34.4 | 32.0 - 36.0 gm/dL | + + + + | RDW | 12.1 | 11.5 - 15.0 % | + + + + | Platelet Count | 400 | 140 - 440 x10'3/uL | + + + + | MPV | 9.2 | 6.5 - 12.4 fL | + + + + | Auto % Neut | 81.8 (H) | 37.0 - 80.0 % | + + + + | Auto % Lymph | 14.9 (L) | 16.0 - 51.0 % | + + + + | Auto % Lucas | 2.6 | 0.0 - 12.0 % | + + + + | Auto % Eos | 0.0 | 0.0 - 8.0 % | + + + + | Auto % Baso | 0.2 | 0.0 - 3.0 % | + + + + | Auto % Imm Gran | 0.5 | 0.0 - 0.5 % | + + + + | Auto % NRBC | 0.0 | 0.0 - 0.2 /100 WBC | + + + + | Auto ABS Neut | 13.71 (H) | 1.50 - 8.00 x10'3/uL | + + + + | Auto ABS Lymph | 2.51 | 0.80 - 4.00 x10'3/uL | + + + + | Auto ABS Lucas | 0.44 | 0.00 - 1.20 x10'3/uL | + + + + | Auto ABS Eos | 0.00 | 0.00 - 0.30 x10'3/uL | + + + + | Auto ABS Baso | 0.04 | 0.00 - 0.30 x10'3/uL | + + + + | Auto ABS Imm Gran | 0.09 (H) | 0.00 - 0.03 x10'3/uL | + + + + | Auto ABS NRBC | 0.00 | 0.00 - 0.01 x10'3/uL | + + + + + + + | Specimen | Performing Laboratory | + + + | Blood | [place] [address] | + + + Comprehensive Metabolic Panel (08/10/2017 1:49 PM) + +---------+ + | Component | Value | Ref Range | + +---------+ + | Sodium | 137 | 136 - 145 mmol/L | + +---------+ + | Potassium | 4.0 | 3.6 - 5.0 mmol/L | + +---------+ + | Chloride | 103 | 98 - 107 mmol/L | + +---------+ + | Carbon Dioxide | 18 (L) | 22 - 28 mmol/L | + +---------+ + | BUN | 12 | 6 - 20 mg/dL | + +---------+ + | Creatinine | 0.66 | 0.60 - 1.10 mg/dL | + +---------+ + | Glucose | 104 (H) | 74 - 100 mg/dL | + +---------+ + | Calcium | 9.6 | 8.6 - 10.3 mg/dL | + +---------+ + | Total Protein | 7.4 | 6.0 - 8.3 gm/dL | + +---------+ + | Albumin | 4.4 | 3.5 - 5.0 gm/dL | + +---------+ + | SGPT/ALT | 12 | 10 - 35 U/L | + +---------+ + | SGOT/AST | 17 | 8 - 39 U/L | + +---------+ + | Alkaline Phosphatase | 92 | 42 - 98 U/L | + +---------+ + | Total Bilirubin | 0.4 | 0.3 - 1.2 mg/dL | + +---------+ + + + + | Specimen | Performing Laboratory | + + + | Blood | [place] [address] | + + + from Last 3 Months Insurance + +--------+ +--------+ + + | Payer | Benefi | Subscriber | Type | Phone | Address | | | t Plan | ID | | | | | | / | | | | | | | Group | | | | | + +--------+ +--------+ + + | [employer] | [employer] | [id number] | [employer] | [phone] [address] | | | [employer] | | id | [id number] | [place], [place] | | | ODS | | | | [phone] | + +--------+ +--------+ + + + +--------+ +--------+ + + | Guarantor Name | Accoun | Relation to | Date | Phone | Billing Address | | | t Type | Patient | of | | | | | | | | | | + +--------+ +--------+ + + | MALA GOINS | Person | Self [birth year] Home: | [address] | | | al/Fam | | [phone] | [phone] [place] [address] | | | [place]o | | | [birth year] | | + +--------+ +--------+ + + Advance Directives Patient has advance directives. For more information, please contact:[email or web address] [place] [address]
--- OUTSIDE RECORDS SUMMARY | ~2017-08-24 | XMS | Encounter Summary ---
Demographics + + + | Address | [address] | | | [place] [address] | + + + | Home Phone | | + + + | Preferred Language | Unknown | + + + | Marital Status | Single | + + + | Church Affiliation | non-denomina | + + + [...] | + + +---------+ + | JARET HANNA | ECON | Unknown | Unavailable | + + +---------+ + Care Team Providers + +------+ + | Care K [employer] Police Officer Name | Role | Phone | + +------+ + | None Per Patient, None Per | PCP | Unavailable | | Pt | | | + +------+ + Reason for Visit +--------+ + | Reason | Comments | +--------+ + | Emesis | | +--------+ + Encounter Details +--------+ + + + + | Date | Type | Department | Care Team | Description | +--------+ + + + + | 08/10/ | Emergency | [facility] | Patrick Canales MD | Non-intractable | | 2017 | | Emergency Department | [address] | vomiting with | | | | [address] | [facility] [place] [address] | nausea, unspecified | | | | [address] [place], [place] | [phone] | vomiting type | | | | [id number] | | (Primary Dx) | | | | [phone] | | | +--------+ + + + + Social History + +-------+ +--------+------+ | Tobacco [...] on file | | + + + as of this encounter Last Filed Vital Signs + + + [...] | - | + + + + in this encounter Discharge Instructions Patrick Canales MD - 08/10/2017 SPECIAL INSTRUCTIONS: Return to ER sooner for any increasing discomfort, new symptoms or o ther concerns. Call for a primary care provider when you get home to [place]. Keep a journal of events and circumstances surrounding these events to try to identify trig gers. Vomiting (Adult) Vomiting is a common symptom that may be due to different causes. These include gastroenter itis ("stomach flu"), food poisoning and gastritis. There are other more serious causes of v omiting which may be hard to diagnose early in the illness. Therefore, it is important to wa [facility] for the warning signs listed below. The main danger from repeated vomiting is dehydration. This is due to excess loss of water and minerals from the body. When this occurs, body fluids must be replaced. Home care If symptoms are severe, rest at home for the next 24 hours. Because your symptoms may be from an infection, wash your hands frequently and well, and use alcohol-based nuclear control operator to avoid spreading the infection to others. Wash your hands for at least 20 seconds. Hum the happy birthday song twice for the corre ct length of time. Wash your hands after using the toilet, before and after preparing food, before eating f ood, after changing a diaper, cleaning a wound, caring for a sick person, and blowing your n ose, coughing, or sneezing. You should also wash your hands after caring for someone who is sick, touching pet food, or treats, and touching an animal, or animal waste. You may use acetaminophenor NSAID medicines like ibuprofen or naproxen to control feve r, unless another medicine was prescribed. If you have chronic liver or kidney disease or ev er had a stomach ulcer or GI bleeding, talk with your doctor before using these medicines. A spirin should never be used in anyone under 18 years of age who is ill with a fever. It may cause severe liver damage. Don't use NSAID medicines if you are already taking one for anoth er condition (like arthritis) or are on aspirin (such as for heart disease, or after a strok e) Avoid tobacco and alcohol use, which may worsen your symptoms. If medicines for vomiting were prescribed, take as directed. Once vomiting stops, then follow these guidelines: During the first 12 to 24 hours follow the diet below: Fruit juices. Apple, grape juice, clear fruit drinks, and electrolyte replacement drinks . Beverages. Soft drinks without caffeine; mineral water (plain or flavored), decaffeinate d tea and coffee. Soups. Clear broth, consomm and bouillon Desserts. Plain gelatin, popsicles and fruit juice bars. As you feel better, you may add 6-8 ounces of yogurt per day. During the next 24 hours you may add the following to the above: Hot cereal, plain toast, bread, rolls, crackers Plain noodles, rice, mashed potatoes, chicken noodle or rice soup Unsweetened canned fruit (avoid pineapple), bananas Limit caffeine and chocolate. No spices or seasonings except salt. During the next 24 hours: Gradually resume a normal diet, as you feel better and your symptoms lessen. Follow-up care Follow up with your healthcare provider, or as advised. When to seek medical advice Call your healthcare provider right away if any of these occur: Constant right-sided lower abdominal pain or increasing general abdominal pain Continued vomiting (unable to keep liquids down) for 24 hours Frequent diarrhea (more than 5 times a day); blood (red or black color) or mucus in diar deepti Reduced urine output or extreme thirst Weakness, dizziness or fainting Unusually drowsy or confused Fever of 100.4F (38C) oral or higher, or as directed Yellow color of the eyes or skin Date Last Reviewed: 05/01/201519999170-8742 [employer]. [address] [place] [address]. All righ ts reserved. This information is not intended as a substitute for professional medical care. Always follow your healthcare professional's instructions. in this encounter Miscellaneous Notes ED Provider Notes - Patrick Canales MD - 08/10/2017 1:56 PM PSTFormatting of this note may be different from the original. Chief Complaint: Emesis History: Mala Hanna is a 26 y.o. female with hx of similar previous sxs presents to the ED BIB A with gradual onset nausea and vomiting starting this morning. She woke up feeling anxious. Reports similar sxs in the past. Denies any abdominal surgeries. Last period was one week a go. Endorses marijuana use 1-2 times daily. No fever, diarrhea, abdominal pain, or any other systemic complaints. The history is provided by the patient. General Illness / General Recheck: Episode started: Today Onset timing: gradual Timing: Constant Progression: Unchanged Severity at worst: moderate Severity now: moderate PRIMARY ASSOCIATED SYMPTOMS: Positive For: nausea and vomiting. Negative For: fever, headaches, shortness of breath, congestion, sore throat, chest pain, neck pain, abdominal pain and diarrhea. RELEVANT PAST MEDICAL HISTORY: Negative for: hypertension and diabetes. TREATMENT PRIOR TO ARRIVAL: Treatment prior to arrival: OTC medication (Benadryl, couldn't keep down) Recent medical care: No recent medical long-term Medications Not on File Allergies: Opioids - morphine analogues Past Medical History: Reviewed, no underlying medical conditions. No hx of DM or HTN. Surgical History: No past surgeries reported. Social History: The patient did not report pertinent social history. Family History: No pertinent family history reported. ROS: Review of Systems Constitutional: Negative for fever. HENT: Negative for congestion, rhinorrhea and sore throat. Eyes: Negative for photophobia. Respiratory: Negative for cough and shortness of breath. Cardiovascular: Negative for chest pain. Gastrointestinal: Positive for nausea and vomiting. Negative for abdominal pain and diarrhe a. Genitourinary: Negative for hematuria. Musculoskeletal: Negative for neck pain. Skin: Negative for rash. Neurological: Negative for headaches. Psychiatric/Behavioral: The patient is nervous/anxious. Physical Exam: BP 119/62 | Pulse 72 | Resp 18 | Ht 160 cm (5' 3") | SpO2 98% Pulse rate pulse OX: 72 bpm Physical Exam Constitutional: She appears well-developed and well-nourished. Non-toxic appearance. Actively retching into a blue emesis bag HENT: Head: Normocephalic and atraumatic. Mouth/Throat: Oropharynx is clear and moist. Eyes: Conjunctivae are normal. Neck: Normal range of motion. Neck supple. Cardiovascular: Normal rate and intact distal pulses. Pulmonary/Chest: Effort normal. No respiratory distress. Abdominal: Soft. She exhibits no distension. There is no tenderness. There is no rebound an d no guarding. Musculoskeletal: Normal range of motion. Neurological: She is alert. Skin: Skin is warm and dry. Psychiatric: Her mood appears anxious. Nursing note and vitals reviewed. Procedures: Procedures Decision Support: ED Course: 26 y.o. female presents with gradual onset nausea and vomiting starting this morning. Endor ses marijuana use. No fever, diarrhea, abdominal pain, or any other systemic complaints. VS are wnl. Afebrile. Exam notable for patient is actively retching into a blue emesis bag. She appears anxious and uncomfortable, but non-toxic. Abdomen is benign, no tenderness, joe ound, or guarding. DDx includes cannabis hyperemesis syndrome, gastritis, gastroenteritis, viral syndrome, UTI , electrolyte abnormality, dehydration, amongst others. Considered but less likely ectopic p regnancy with no abdominal pain. No abdominal tenderness at all, very much doubt appendicit is more sinister intra-abdominal process Plan to obtain basic labs and urine. Treat symptomatically with GI cocktail. --LR 1 L IV --Ativan 1 mg IV --Reglan 10 mg IV 14:26 CBC shows leukocytosis at 16.79 and anemia with hemoglobin at 16.7 and hematocrit of 48.6. Urine unremarkable. CMP shows no clinically significant electrolyte abnormality. 15:45 Patient reevaluation. Patient is stable and feeling much improved at this time. She reports a dozen previous episodes, last one was one week ago. Continues to deny abdomina l pain. I discussed all ED results and my clinical impression with the patient. Patient is r walter for discharge. I advised patient to follow up with a PCP in [facility] and we discussed the emergent signs and symptoms that would necessitate a return to ED. All questions and con cerns addressed. Diagnosis and Disposition: Impression: 1. Non-intractable vomiting with nausea, unspecified vomiting type Condition: stable Disposition: Discharge to home There are no discharge medications for this patient. I, Eunice Amezquita, am scribing for and in the presence of, Patrick Peña MD. To ensure timely delivery of this document, it was scribed by Eunice Amezquita in my presence. I, Patrick Peña MD, have reviewed it for accuracy. Please contact me with any questions . Patrick Canales MD [facility] ED ED Triage Notes - Shanae Hector RN - 08/10/2017 1:41 PM PSTPt presents for vomiting s reynold this morning, smoked some cannabis, visiting from [facility], states she felt fine prior to today.ED Notes - Max Patricio RN - 08/10/2017 1:38 PM PSTBed: 20 Expected date: Expected time: Means of arrival: Comments: Puking in this encounter Plan of Treatment Not on fileas of this encounter Results ED INFORMATION EXCHANGE (08/10/2017 3:51 PM) + +-------+ + | Component | Value | Ref Range | + +-------+ + | [facility] Care Guideline | YES | | + +-------+ + + + + | Specimen | Performing Laboratory | + + + | | [facility] | + + + + + | Narrative | + + | | | {qji4xahdqeyyfsi8223icug2phyxlay5213{info{title Notification}}zfuvgi94278rcs | | jop19543rhxdza19892adkjsz17285gcpizei516idvboja873oldbp7158vxuni678uhzcb432zrwur | | 539mcpydkmt2080pmaanbvj498hskoxjsb381mveffctp654stxwlseimq5x2e5ws87{fonttbl{f | | 1 SansSerif;}{f2 Times New | | Daniel;}}{colortbl;acl5hlnxl3jick0;gji912mwtov127ufuo342;dct511hmlms232vrqt988; | | ykt108wjfsg829fbid161;xmj487dyosw554egfz471;}{stylesheet{j35aeefg42 Text | | body;}}{*listtable{listlisttemplateid1{dpjeddiirdxycondk06smwzhje6ulsvfbtandxm6 | | levelfollow0{leveltext '82g5742 | | ?;}{levelnumbers;}b4n0o4fl54vmzbqy-179no656}{jrzujymlnwgtwpoyf78bkswkxs6zyew | | izzcwdjw1zftqzmaqgua7{leveltext '84b8582 | | ?;}{levelnumbers;}x8n8e8cg50csuxrp-711hy1994}{cwypsdubklcnpxenq52gbcwbhr9ofw | | zcmnyujak8kadptyuckem9{leveltext '64w2172 | | ?;}{levelnumbers;}v5q1n2pg55twjjxz-432ov9551}{uvizlsuxrrrdytary68wdbpzfo9buu | | zqgbkdbss7zmwvsaqczwv8{leveltext '26s0097 | | ?;}{levelnumbers;}g3r5g6xn93hydyxw-624xg2878}{sntlyifwkmtifpaxd79oxkivsw1cvy | | cituszkgd3kfbqzesnqtc5{leveltext '21f8228 | | ?;}{levelnumbers;}m8m0b5nh41kkyiin-397dm6020}{adtavugsvzyyqelvx98eyfkheo8aeh | | ddkhiqhmv8khywqywhjft4{leveltext '02a5132 | | ?;}{levelnumbers;}l8k3g8kj58qttmnx-188jd6796}{biruezyssvcjjjkik60gaftzmp8fbj | | vlfuetyrw4hnbtlywslxw5{leveltext '74w4536 | | ?;}{levelnumbers;}g3t4x9wn51zqmpaa-381kw0485}{wgtmsbsqyfbfmckes09sxefiez1oxl | | kmqhqdglk3ylzytapsgeo0{leveltext '25h3774 | | ?;}{levelnumbers;}j4k9v4ev38qvbndn-609mp7065}{npgsrynnatxtyhlgk66imwmjwm4zpe | | wmlarrpmu6vbtpwouqtgj1{leveltext '55x8930 | | ?;}{levelnumbers;}l1c7f3zd51jaqasr-355xn4544}listid1}{listlisttemplateid2{li | | qncatlpiqyiqgla02gvuopka8iavrciypvjlu7gaizptxrsqr0{leveltext '03l1417 | | ?;}{levelnumbers;}t6n8j4mq98alybfd-675gi119}{xccdkiqevdbvdnmfr81jhtwewr2rulx | | palohojx2tjlwrebltgt7{leveltext '80k6887 | | ?;}{levelnumbers;}n2z0u3kf75zmqsxj-685rf1044}{xxtdxsqyvkvhfgpqp64ccddjru9ldf | | wcbsxjcfm1qaxeupgpnvp4{leveltext '48c9956 | | ?;}{levelnumbers;}d7e3i7nb93hvaqqz-648us6815}{xdgcqkghsjgsokhco11nlfdgos3svp | | mtkeghnhk1gyolvwojhto2{leveltext '00v5718 | | ?;}{levelnumbers;}f9o8z9cz65gzbrrw-295vi9267}{nqrgnkxutgbjsseyv70evswyig4gkl | | yrdeuqysy1iukbqslzanx5{leveltext '87e8579 | | ?;}{levelnumbers;}j0r5j9ty92vcuehv-032ie9195}{lodxsahnwzfqsqeml73wemaopl2ori | | aqfthrtdv5cyqjhnfgidj1{leveltext '58h4122 | | ?;}{levelnumbers;}f5a7g2tu45zokvyy-683sv0780}{ivixvaicmjqzjnsez16lcnkvud4zya | | xmnskxnhi3rxjdridosnn3{leveltext '56i8255 | | ?;}{levelnumbers;}w4x6o2np77hbjbzf-148tq7659}{orupktrbxuqvckvqq00ysqanwo3vmb | | wzsbhcxjl8gatinirgykf0{leveltext '85a4869 | | ?;}{levelnumbers;}d9w0i8yu37bjfuxf-698wb9921}{ujobqeytcrpdbzhgj37iwytoiu3txh | | dhksjhoeq1rlsnyybbmsq0{leveltext '61e1019 | | ?;}{levelnumbers;}r1c8l6ca54zvocct-942op7100}listid2}{listlisttemplateid3{li | | sypypwkdcpntvok76bksouku5wcmouavnjuzi9snkzhwnomyo7{leveltext '71u3310 | | ?;}{levelnumbers;}g8k9b7fa00xubtpe-434ny970}{zodkkvnsmxkhrnqiq92bxynird1tzlf | | mfudgoem5vxqterqieix1{leveltext '56l3957 | | ?;}{levelnumbers;}n6p4k3pb23ccpnwr-554ru5413}{bavqochfiacqlxueb39srapsoe1iaj | | evqxsmqbx4wsemtmqzsup4{leveltext '59i5073 | | ?;}{levelnumbers;}d4v9c2fe50jdiowk-388vm6995}{opvxzlyphvfojlkwc69rdjdwsp4xin | | fbwozpnlj8zzsjnoyebkn5{leveltext '03e4085 | | ?;}{levelnumbers;}g6h1t6oq23aehewb-690xh3487}{wckclcxpbzneotmic04jpfsmig7jms | | ukzpipjae7ydzfkmcefsy9{leveltext '54l0190 | | ?;}{levelnumbers;}b7g7g0ek98qabmtr-571zx3210}{dttzlgopaufftepuc20oavbxsq8cwt | | jcrgaojer2opatnyghzwr2{leveltext '38k6902 | | ?;}{levelnumbers;}m9z0f2cl91axvofw-402fy6470}{koklgbnhzdkstgagq79pbgxbyt6rtc | | tizecmwev1vnuwgrxsifj1{leveltext '89u9448 | | ?;}{levelnumbers;}f6d9u9gv41rpwqlv-177nv7854}{kinbcawfiwuuzaaop13fvbduns9dev | | ctgbrrfnt9ujctbdbwszw8{leveltext '39l2358 | | ?;}{levelnumbers;}q5o8g1he44xlzrrz-860eq9207}{gcqlltyelamvaslzv94bluhjbj4fnx | | pgxhpsxtq2lycjnukissr6{leveltext '07h3715 | | ?;}{levelnumbers;}n4t3u4iu17yszzfc-820sa4298}listid3}{listlisttemplateid4{li | | pwoiyxnjglyzvrw06yljcima1ekenyvsgtuqj6kgobzqmnhgc5{leveltext '60n8926 | | ?;}{levelnumbers;}c0z5h1hf02unhuaj-856cd152}{kpzmvddbnwgvfvbnq73mbcjcau8aihy | | oypgbvot3sswnzyuulcf1{leveltext '69q5355 | | ?;}{levelnumbers;}f9b2u6sv02hkhloa-050dd6192}{pnfyhiecqwewzrewi79txcaodq6ftq | | vxcbsuitu0oswnvpmgwus6{leveltext '44y7768 | | ?;}{levelnumbers;}d4q8x8us49kixhxl-431yt5660}{lhrmdciezgvbtgbft30ldflnrt5thm | | qkmvvmzld0tjmfitekive4{leveltext '08n4951 | | ?;}{levelnumbers;}t1v6e8ux01zccoix-312tc5138}{poitmqnrpjodwestw88ebemtrs4zyj | | hfvbzxzhi1biepannsmft6{leveltext '31z1636 | | ?;}{levelnumbers;}p4d0t0od16qunaqx-158nm4634}{yfekwvcuwqnpuugnd77hmyenku5qan | | wmqxekila1cvvvqlqkbmb0{leveltext '01i5034 | | ?;}{levelnumbers;}n4s4m7dt37wusori-190ag0365}{kdsrigqrwfdnilafi29fbwnntg7flw | | kbcbptyrf8fejyvelalcv4{leveltext '88c8517 | | ?;}{levelnumbers;}n1o7d1ej91qfyisl-816ma1861}{oschxgxsoqoesrwsh08eatjhjc2yxz | | xzusahcnn3crjrrunsnyn5{leveltext '98f9056 | | ?;}{levelnumbers;}b7s8k5yk12hugcni-104rk4548}{gbqhjuwracouogiuo69skmlzag2zoq | | fdigosnwh4sjobwvgxscz6{leveltext '96p5322 | | ?;}{levelnumbers;}g8s5n9vl68uiuihs-342hb9468}listid4}{listlisttemplateid5{li | | azzvwaziizbywvh70xivvovs3qlsxavxrghdn0fdtpxqcepil8{leveltext '65u9866 | | ?;}{levelnumbers;}j0h3c0mv12rgntjo-926wm943}{earhshxwvaedvzflk52ydqiphi8zztm | | rlqouwhe9wlavprbgtiq6{leveltext '06m0749 | | ?;}{levelnumbers;}z2g0h0nq10mrakcw-070uj7939}{culmbdladotmmdeti18kvcbncj1uki | | ugkbchvzx9aucbwfulgpa6{leveltext '85l2191 | | ?;}{levelnumbers;}i2q3s8dc77jxjugy-405jh3935}{qvdrkeaxwcnyyzrkl52kraobml9ajd | | uppehwahp0vyrnvgtwzfp9{leveltext '71q4713 | | ?;}{levelnumbers;}e4d8s8lk73nssbrh-653yx0113}{loqlopkncvgejowuz76unmambo1sqh | | xvdnpaxgc2issrskofqxe0{leveltext '39f0743 | | ?;}{levelnumbers;}b8y0x9cr53kmbowz-315aa8932}{xqwtlgyuvmqmkagyn57ossgjnf2kem | | akpxfhxls3irztzwkcujk5{leveltext '55u1440 | | ?;}{levelnumbers;}g7d2m3ub94qjtsfp-348wr0453}{vpskofdpxxddbwcez59ueqzbiq4uny | | bgqofdmob7kelygkhtgli2{leveltext '13b4593 | | ?;}{levelnumbers;}t8d6z8yu41nzevxe-236wn8433}{nebvfjgsqgueqokbc43ihihnbc1hwi | | hlrwxrdfo1pspxwraifcf1{leveltext '37t8702 | | ?;}{levelnumbers;}k8h5c6ff52rzaebe-216vl1163}{kjszemyrwlqjkovov03fmnzxfo2wxc | | iakxnahig6gwoiadtbhlx5{leveltext '95c1821 | | ?;}{levelnumbers;}k2f5i2gu41ladwfx-078eq6047}listid5}{listlisttemplateid6{li | | zrlacrigyandumd13gzoiyyc9vxjjtzafctxk2iurowxiwqjg4{leveltext '62t1974 | | ?;}{levelnumbers;}z5t0w8bb67acghhf-379sl139}{rdbgqszbgjizqgxxc40yuxxoaf5ssym | | abycxbij9aupapppkxvg6{leveltext '28j6474 | | ?;}{levelnumbers;}u3r0k9qk06qripmq-102mj0069}{xzsnmjgqgwzqhkkud57hgyvtbq6vyh | | lgkeekqbm2khgzcmcjhwg6{leveltext '24a2591 | | ?;}{levelnumbers;}d2q3e9qf19qungmw-094pq7406}{cgfiwphqprmcpcaip42dspqqud0dha | | wnupiebhw2gammywwpwpd9{leveltext '02u3925 | | ?;}{levelnumbers;}g0p0r0bo58iakemd-862ze8316}{cjyczppzcjdioltka17sbgfsja8uxa | | giiqrrtcy4ekqnpvpzfix1{leveltext '90z6663 | | ?;}{levelnumbers;}s5m1f1gf40jeoxtn-684fj4473}{ftvtgmdchfwztgwla05asbinjj3vnb | | fnvskgkkv7hoxorpqvjqx4{leveltext '44l0884 | | ?;}{levelnumbers;}r0o4q6wx36zwpfsn-966yi6827}{fbecnjknsgrtcezem70wiuuevv9gir | | mszcdifuj8fnjisjaplhe9{leveltext '74a7933 | | ?;}{levelnumbers;}e3k5l1yi33mpprhw-798xm6587}{aekhpqeuqchqawuhd56cvrmymz5bwi | | heasekbcu8twzxrmicojp0{leveltext '30c6239 | | ?;}{levelnumbers;}n8w3i7qy73hdhlet-013fr7609}{zhypoqhemxmknbizp49oboxilh2zlq | | hgxchvyzu9xnvmyaoxovv9{leveltext '11k3466 | | ?;}{levelnumbers;}n6p1t6qi19ceawym-418ld2881}listid6}{listlisttemplateid7{li | | aobthqovgfrmejh00mqurryi6wnpsdewvylaf5ukxmdrwsioq0{leveltext '11l7645 | | ?;}{levelnumbers;}l1g7b5do43dgtigv-151nq652}{hlbnljshsjjnnqpaw06gurxhsl8fzhr | | nlwfbakp2jzundfzsqpn2{leveltext '98i8274 | | ?;}{levelnumbers;}t8m0o4pl05kqwcnq-569nf8746}{navroamfnmnkjvwbj94draegln0wcm | | dwcjzsfkt9aiosyzydgzp3{leveltext '67i8102 | | ?;}{levelnumbers;}l8e4b4oh95whyray-181zj1165}{ffrjejxyuyayiclbq39hmkudra5jgt | | pklazdrhv7pqivqpxkxtm7{leveltext '28h6920 | | ?;}{levelnumbers;}f5e9w8tf29wdtumq-488am2784}{nchimrlpgmwgxtpeb08bjwwvet7ttg | | kflruwgxm1dbwgmgpsivm1{leveltext '24x8076 | | ?;}{levelnumbers;}q7g0u3au19gwsowd-508eo1174}{pcnxytqnyknlnurzy39pxgoldu4qzp | | qyvlzdgis8lsrlqdowppm1{leveltext '99v7192 | | ?;}{levelnumbers;}p9k7x2tl95oouwtx-706pp0485}{dheodyjyepywnowdl38frybfyh5kcz | | nzexryzep8wjadljlayqv5{leveltext '52u2768 | | ?;}{levelnumbers;}t4j1j8fu48tyabog-078bt9416}{qppzqcakubddhoznt25puebapw0tfw | | ywfxwkdnp4etbvmxgqllc9{leveltext '07i9811 | | ?;}{levelnumbers;}q1o7s3gr66vskjcf-236md3858}{babapyytvgbumwxoo48xjpnnbb6pga | | otetqqgbr6hrprrvekyrq4{leveltext '37v1684 | | ?;}{levelnumbers;}i9y3k0qr32tejfmo-928jf6420}listid7}{listlisttemplateid8{li | | gaeeopevmubaitx22sxtvhip6oonjvcicsnme5tngmmjupdms3{leveltext '45y5878 | | ?;}{levelnumbers;}g7l6w1aw55akgynw-473jf722}{byozghcsuvunjddbu47pkspuby3yaai | | siodixhm2rcyvnqoickd1{leveltext '80n9923 | | ?;}{levelnumbers;}q2z2w3vb41cjqfyy-009gg9563}{jwsmkayfujsdefjef68uftdywo3xfw | | ywenozvin3gzkkchqafap9{leveltext '79k9808 | | ?;}{levelnumbers;}f0c7a9ot19oeaghx-101rp3583}{usxvyowyfxiybfqhn77watjnlr2exp | | dlmdurmxf0ahyqitstnfs4{leveltext '88x1799 | | ?;}{levelnumbers;}w9x9j5qw15ymcpdx-866ed8941}{lafcbjpixjiovdjwo02whvbltq1mhl | | qpnubglbn1qrcrapesjwk3{leveltext '74g1362 | | ?;}{levelnumbers;}b7t3x6qp58mbkspp-917rf7184}{fjpnfmaukymvvyhpu22eeuvttj2nuc | | nzfivhbwf4okjogsstpiq7{leveltext '39i7712 | | ?;}{levelnumbers;}k9h6i5ey43fygwar-355fk4332}{ootldxfqkdecwltmy67covtgmf5tbm | | cwdvmophv6rlbojhietdr3{leveltext '36e6808 | | ?;}{levelnumbers;}m3w7x1zp47amrnna-454jr7478}{gfnmtqueurybneqjm61bashvpm7czs | | drdeqvyec3vcqlpwwkngc5{leveltext '02m2574 | | ?;}{levelnumbers;}l2v6z5ah10jiyqsh-124ei8507}{wrzyoszugjuakqejy72mfcosac4sxt | | zvwutxvfx1radgirglbwr6{leveltext '84r7768 | | ?;}{levelnumbers;}u0r5w7wq62xvahwk-414ms8764}listid8}{listlisttemplateid9{li | | udyucxnauhowlon54ixgswwi1radzoruprkeu4csbdwoedarc1{leveltext '59w8692 | | ?;}{levelnumbers;}n7d9y4ct67tyosok-411bf296}{vqbcdovvlxmrhgsdu23uwwyykx0iafv | | jrzxnmqh1dqjdyymfcwk3{leveltext '05i5512 | | ?;}{levelnumbers;}a8i7f2kz37zuaiiv-308ck1435}{ckhpjhsfydawvxdku09pilqraf7cbg | | qqnrlcpqb0wpuuweumgny9{leveltext '73a4000 | | ?;}{levelnumbers;}b9e5y8ar58spzpwu-189cv6255}{lsstmpzzgpjyqygqb06dnlzrei3scj | | yqoyrlfft2wbfwjtegkzz3{leveltext '96g2365 | | ?;}{levelnumbers;}l6g7m5uk48knxsuy-484yd0071}{eeuundbvbkpgwdnjq61fxbwxgb1jpa | | qrvcgarhk8vljptipnixe0{leveltext '21p1745 | | ?;}{levelnumbers;}t3m4c1yp79pwlrtj-954dh7090}{dxrosobxvgthefezd43mukvsgc2bnk | | pmykjvkdc2gvagzwalfcq2{leveltext '25b5068 | | ?;}{levelnumbers;}x6u0r8cq45zgnxaa-183sw2520}{xylhblwrpevqmnsym15firzoic6gxq | | ieqxjybvu5eehrfwqyitn6{leveltext '45c4971 | | ?;}{levelnumbers;}d5b6k0hd91feyhvd-873df7809}{rxmnvfgpnrxbpsgmt15qlisjkc9dff | | jwupearfq0qqaqweomuwz3{leveltext '46e0832 | | ?;}{levelnumbers;}n6i7c6ya65swmkoc-523jb1053}{hyzrieatftwovpqig91tyelqfx9zoj | | eehphljvm9xzffbikigga4{leveltext '82k0879 | | ?;}{levelnumbers;}c5c0i0sc30cgidfn-766ye3278}listid9}{rpjnkjpetzlpysppno99{l | | fiqshpswodczetbd21weewkye3nuullsvcfvmc1mgniirgdgba5{leveltext '18j8828 | | ?;}{levelnumbers;}h3e5b1ug20kkdycp-111cn229}{qwldwmfbuwphulflr94yfbrewd7dica | | acqeqcxs4ilkpphooqym6{leveltext '17a5782 | | ?;}{levelnumbers;}b5x5k0mj07funxan-391ih7431}{bllrvihjniakobhdp67wxklink7pfw | | tmfqdflda6fufaidwrpft7{leveltext '11d8011 | | ?;}{levelnumbers;}u1q0r1mo49ktwktx-588df3355}{mtchfwroahwmgqqki38chlqiwk2xwp | | lqkhovrdh8dxucpymrfib8{leveltext '72a2010 | | ?;}{levelnumbers;}r6b6k9jg58gfxrtc-903ev7239}{pfioznjlftytuyaky14axksldu7vcr | | pbthdayvv3iwhksrhraov8{leveltext '82d9569 | | ?;}{levelnumbers;}j0h8d4kh58fkfjtm-939bx2622}{mzzuajfuksenvigsz43vvyjhrb3aaw | | rzyzishoq9krgyxkqphmm2{leveltext '48m3683 | | ?;}{levelnumbers;}e1s2a9la84cjgxxu-354uz8123}{yjycoxufpvlwbjaqp11clkkgan3azw | | gsczabfmd1lbulkdxfgdw3{leveltext '79l3716 | | ?;}{levelnumbers;}p3g6k8es20dxexnt-957sa5815}{fabochykaijqpujgx62fqkbqll1upw | | prxkoupgc6kcpjrwxzppw2{leveltext '05d7098 | | ?;}{levelnumbers;}g2m4i0tf88wbpkja-647ci4512}{xgbuizolggwnwquaz34cifnfiw9rku | | hukxtuvnp2poswrfkechz1{leveltext '69v3318 | | ?;}{levelnumbers;}a1r2n3rb16qwnkxa-254gq5985}ikjqkw66}{yvelmjsfeauegrbijg57{ | | ydmvdzoydppqdqraa49lsdnbcp3yzgjlshamzls9zdljobcucut5{leveltext '17m3838 | | ?;}{levelnumbers;}g3s8v0pb84kbhszl-142ji333}{fziuoqjsuggouyulk05jzrcnca3ebye | | bfsdgyha1oevwlezqqjn2{leveltext '28l4605 | | ?;}{levelnumbers;}g4s8m8rd34nkbfsm-782iw8278}{asjbftkundbwencvi16vfithkn8wiq | | ujjeetjmh9ycxhqlrennu8{leveltext '35z1753 | | ?;}{levelnumbers;}a3o3b1iy67vkwkke-886ks8694}{dodwrrxasothvzajh94pjkjmln8zti | | okqgnljwi7ssqkngsgznr6{leveltext '32i9247 | | ?;}{levelnumbers;}w4o4v9rq97exacnk-329zc1055}{pkwldvxwjplqbpdqt31tqvcfog2sme | | vweiriyzo0xweexoqonvv6{leveltext '86b3153 | | ?;}{levelnumbers;}b8v3i1cl50fnwxhy-065ix9292}{lxjkqifuaftkgmesz85xxnjrsd1yyi | | qrrzqbwcc1wkmjecnmhwu4{leveltext '75a1927 | | ?;}{levelnumbers;}g5l0y0al00rnqipn-734rp0236}{buvbhpaalmrbnipau91opemcxy4evm | | boegrdskd1vdnucigmksw2{leveltext '34p1808 | | ?;}{levelnumbers;}i2f1t2fv19gttiey-587kr0591}{psitatndcgwxgizyd45fcuevir3mhl | | matvbecoe4njqyfqjiieq0{leveltext '67e3654 | | ?;}{levelnumbers;}p1j4p1zc27bcajjj-815pn3604}{kqwfbzvdtimnkfaty66dhlhbme3ugv | | ieoeoymni3rtfzocjobai5{leveltext '97z5061 | | ?;}{levelnumbers;}t2g9h6df45rfwsru-736ol9778}}}{listoverridetable{lis | | tchsxvmziocheqk3aqjunewxiaugyfgvz1ki7}{fobvepiupetrpzkwog4iqzmvhmfrichdqkvu2fc5}{ | | gprjamsfzdfupnmflf3mrmhpsnthcitgdbgi0lv6}{fuczpedwepaqwxstvy4tnakvmbhebvwsaysz6l | | s4}{bjgrctaikyvymweono6dzsbirjeuuaysfijp9jk6}{ockojbxhgwutaaguwu1zmtvaluhkjeomqtf | | t0ls6}{qysfybyilmlyhitkmx0tqsjfotuyrvxjtepe0rh6}{ivgrgqrwtupkkxvjnz5vbvnezpmzoed | | efhwn6jw4}{odwfigtsemxqyemyzc2pfaubjayzypkpznte3gt3}{qubbolylmprikbdsts57qcavjog | | qcboktqvtd7ak17}{oulkuuuslijcusvkpm58ubncrpxlqyzfqabhz8hb03}}x2b2x6rl02q8x1p | | 8qa48e1s9b3fl64{widctlpardbch{cndkgwyvpwlqqq5ff1bi44cw932rb2aj2ai8{wid | | ctlpardbchqccf1 MFTFy398?GLLRAHCEYAQNl785?08/10/2017 13:12l751?BRISEIDA, | | PPZFLFSHd699?MRN: | | [id number]}a9r3x4tb45iqe}x6b8g5di94{czrfpfiifmkwquc256bn1za9wq1{widc | | tlpardbchcf1 This patient has registered at the [facility] Emergency Department | | par}c6f3a0jv54dsr}e3h0l4tn76{rxuuejhntxieau4gfop86zn337oq9cs9jd6{wi | | dctlpardbchcf1 Criteria metpar}y7a0a2yl12{pardpar}c2l2l8sp00{pardplain | | e5x6z6ze30njxsrgzjnfw{*pvoqja6qarvyisa5tpaclrxce1pgmqczr5}cb6hlnkmnq3govnk | | qnls9i7s1qk75mrcj{mhmxyvhgyiiap5c4v1oi00wzagn hichdbchloch {u8226 } | | }znbp5al3 hg465bv7uus076mdm6ls-668{rtlch ltrchloch cf1 | | Guidelines}par}{pardplain | | y9c8l9oy32gteqxkunogs{*mebija0nkkhmjke9ibosqdbui7tktebzi1}pa6acgbwid9pprrd | | bonp7m8n7ql75fvgb{rinrcidorkeap6d5r4zz80ntdeh hichdbchloch {u8226 } | | }rali6nd7 ae592pf6rpq934jok4mn-597{rtlch ltrchloch cf1 Frequency | | Patient}par}par}k2t7q6su20{wkdxhqrxrtwrol6qfnz77vb211pd8uv3sw6{widctlpa | [facility]5l0l4hj23ew5 Last | | Updated: 06/11/17 6:10 | | PM {par}nw1zx267iz6cd8{widctlpardbchpar}b7r8z6be97s3rdsc36bp736rs3 | | li0ri0{widctlpardbchcf1 Care | | Coordination:par}g1y6a4nc81{ydypaiobtiqytwb215go0bx4zh9{kohbhhmaffiujud0m | | 2ph2sm45 NOTIFY CASE MANAGEMENT TO DKQad6s7p8d0op34 IF HERE.u160? | | [phone].par}j6y9u9pj25mk629jp6gh2lo8{widctlpardbchcf1 ENCOURAGE PATIENT | | TO USE PCP OR CLINIC FOR NON-EMERGENT PROBLEMS.u160? EDUCATE ON | | UTILIZATION.par}l4e8j2jt56vh847xb8sp1qb7{widctlpardbchcf1 PLAN IS TO HAVE | | EOIPA NURSE/CHW START WORKING WITH | | PATIENT.u160?par}s6v5i9la56cx601js4ds9im2{widctlpardbcf1 GET CURRENT | | ADDRESS AND WORKING PHONE NUMBER IF COMES IN TO | | ED.}par}u7e7f8fc78tl624ox8sl7qx4{widctlpardbchcf1 These are guidelines and | | the provider should exercise clinical judgment when providing | | care.par}p6v7j6mc93rua}f1u4b4yg64{widctlpardbchpar}h4w3i7em99{widctlpa | | evobgy0fxja29rp354jn6qv3kx6{widctlpardbchcf1 Care | | Providerspar}k6b5c3ox00{{raelsfhrsudsxwqtwbpvcrpvhbuugcjeao6qwdmhozruffpptj | | zphjd2pvtvvgptxqnhihuicykr6hmczzodipgvfxwegfvls0xkgoyf28obfijp99upfges78agqskc | | 48sfhmotk1wxdxhsq4mbxools2xmqdlth4rpyqoquglfonqcnq6039srmvcvqjjrttbayngfnhpnzw | | bwhan8sypbwdsxwfkuqvdyrgxr3rgmmrtcukfysucgomdkm5supfpksssbttcalndfuk2ilxzct51 | | ghrofh53gtoyxl28lztcgc31ynttqfw2atooeib7arzaeya1xufoaov9gsnpqsyqmddkphdx1515whd | | omcahrreeewlmreorxlzhyrtuv0xwydgwbjlcmortbmznnl3ypujpkieodktflmoogbq0irkxvkdi | | screlpsjjftn6bqkryv73vezgbp97yrmolm99nvxakf29sbyekvv7joukyxs2zitonfl1lpdunxp2g | | bxgktvodyknoyjg6974elxmjanfkoqxnxekfmsujeeslxoxw1tosyxhshuhsrvgugoncc2wxvmwxkz | | enwtgdzcowyy6jpmaeldafytsqmaenbci8obwlor19fpwlqb07wqddyq81nliilo32dkcigfy0paml | | dkb6tjqapaw5pbcqexq8gsabqmaruqmsxdsz11484mizkyybedrduudtxhbdomgvpshoxr4wniropf | | setaptxcsahtd1mwylvggkgrqjqcfxclkn8xkgwsdewpmeuldtupvcm8lcctll44xdptbo60qqshso | | 37hdstke95kynmzjk9qfgfslw5frbemxf4imrsoso2sfjhijxgbimxpplz87092i5hn0ox55ebcc | | intblqlcf1 Ludnfdroqilffxelpx8at5ew77ouisyyntvyugi3 PRC | | Xgxqzcysyomhrx7kw7wa01rpsojddjjmbgf5 | | Dessnjwvgdwybso5yh8qu04cakvneeqkyuje2 | | Rwknibhusxqqy0bz3si31cipuqfcwazmre9 Service | | Vgxfzawokhgsgtydtxhxmlncpunbkglrylbhckkyudsvizemxbriingashqy5dbcpfmxhqrvdjy | | llnmuq7dwnknnpllmfbnhoinfws1iwydewczsltzdvjchxph4gflsjd27kwnrbz04wprihw98dmaur | | c50szvhepi5jhhvmja2nygyhur5mnpgwyi4lwktoujftqivvfqb3228fjxztkdgtrwlnstvwhfnvna | | ciedap6fvldpkugzzacjuzmbyep2nhfcgossbpgyocdjbobe0hdxxmqkmzbdxjofnbhzw2iihhiz45 | | dampgk43rllmfa46einsbt66upvamxv7jfxayzk5dxclspq6xjizazy4nkjkdyrjokfmqdfb2600vo | | rzekglujynvtjhjyutfpxmzuqpe2jmkqwodkbhnyyqbdmkbc2hkxcthsprzatpsaconte2hkjrabj | | pbfinbjtkldfo8rzueyh05durkxc43xfbfuz14irztxx53kuejhcm4zjyeaks5ygzaiur5osbyknk1 | | ptoqjsbvlgbhasay1368shfaoczmbphwxloytgoidhnvaqjhf4cwolktudkrbxutrpjajw1cgiikvh | | dpglpsilvokap8tahkbybrnhygjntbupny1uhmquo49wqrxlr99sbxadv65wfmhzb72uirstuw1yhv | | uirv9qykxujk7dvhuysh4urejjslcliromljs78357asmzmqazqyydpsrqhvwxkiurqchdb0kdvhobe | | ngiqvuwqjpbgx5vytufnpsrzdwhrgnodih2uvmmvprvjgpryxgncqrd6mmvkro34nbhwjw55hwfti | | c54numjiv15uoazrrv9jbzwrxm9frbtjsd9dlavnaz0pntloxmmoxgfjgen64910q2g3s8qz06ph | | rdintblcf1 [facility]JYSQFbbdbewqkar0q3a5wc54uvrwezbszhk1 | | Primary | | Wrxrsdfidvagvybdsmwfrxcuudvilemqdckknifmsnkahxdjio1t6d1tj83vlbgisypagi9 | | Current | | wcwubruythdvbboqyppdbatghhtniehcwaqdgguvyceukkmmmyycrco1cgjkmsxkjfijpowdvme | | j9qbpytjkllgoitrrojixl6jthoahkexrnbfqrqzbox8twvcpn03dvrrxd39qjrpnp29ovdpkt58w | | uzcuvk0xdervil9qzazozy0kvxsdta8kvxpvyelnmwhiirt7379qsspqxtjuqrxluurtvfkdseeckzo | | d7qirairexisnyyzocgxms5lbkiiiueokqvxsbldxqp7teqqlhnloogjdlsfrcby6eqxqye96qqvi | | ok25ymceib87mzhtqz30ayhirhy6xesfwat3nfyrhlt6vyfxgvc6oogrzwhqwswfrwga6640ucpfcve | | eocxejxcggvmjduutmkcxs9xcjtofcqkdelevcpcnzg9uogcvbqfjssyogpnkirw7seucekqqsfre | | skckncsn9qoufpk09qphzdr90cpfspl12ymwnqu76yoznyaj2ankasad1zgagazx4jxxgftz9qehdi | | zblxtmaiscn1047jrqqkrlufbxjvfpwulqcfglpltvky9yevtzjzvzmwiruacgktr7xvvjxxrpmnwq | | twomyuej8jjnaezdfzhxtahbuoyli2epuyrc70wwfeto78lnqvxq18zjeubu26emdbnxs3lmzcwxm0 | | zhwjega0cnypeps3qfvwchpqavxcippt07717tmyqxcxmdboxodwqqkqjdwgztkldq4nncqyfqmycc | | nmlihltuy4hicypurcykdchfuljxag3uqnygnfytlowwnshnfab4krypxs63wewnlk70tgdyes16s | | zybvj40xfizsnr9ukavqiu3wlvfdew4exvzdwv7hcllfvlrluljcfjr45274a1a8a5wk73vynidl | | [employer] HOQPZKABErpgokpfqww6x8y5xn74dvsrbatcidm5 Primary | | Sufrbwfkyqcbtmttzhrlxccqznoaflzy5r5z0iq63bpsgkwculow9 (503) | | 413-2208odmcmfjbck4t7r6ap78osgcxlrezit4 Current | | plaincellpardintblrowpard}}b5e9h9ii47ugd}b9m4x0og04{rsvwxzpxavxwfh5n | | dfh71oq207bf5cq7xf0{widctlpardbchcf1 E.D. Visit Count (12 | | mo.)par}s5r1a7cw21{{qgdilbfkbspazezkpozeuxbhkyqkjyalnz3cvcfqdshcguiefmqpnin | | 1tdxaeorrzrpfejnoalxo7fawmnoqwqmkmlwxzkcxr7mjnicj09gexifd68zrrvxw02bjdpoq31df | | rkssj6mukeeid3cbxkzde4eykapea1vsfmslftkivzjwdd06017tdhtvdsvlkzoapatetbtkpqslopa | | w0uqgpssadjejvrobkeevm7iszsjrqlfnztbpplakgh1xgwmldpnaguviquotkbk7quriyv10kska | | ty55wnwznz31lxaslr37skxnbwc9ydnvinw9zckborn4wcxwxap6hjcalhnwhleslkjw18869w1oi | | 9eo87bnvvxmjtbcxkg2 Tyqrluhtuujrgticwa0aa7bp35qjglhehndfzit8 | | Wgdkwzvjdsdkgrvldktewuzmwdtqlzlphnipflaskacmmscxvysblcbkzanqc4xfdipwmbplbjdj | | ocbxzt8ivbjzuhpdumqijiyardf9goivkyrarnhlapmelcyo9xwokzi10yglhwd01iwjdwh00mkml | | kw57ihzgagp9xhbqgzs8aznawwk0lijeokq6ubkxqvfwlhffaawv05795ihjmvqrlmkrvouycxsmgmr | | letkxiq0syrcwlesebfcqiwsmbll9grmmecjzvnjclpjkuuut2ktcowjkyawwvoudlsyyy7wisjab | | 10szbqhs64lxvfau06lotyqw22lucvvkt7payfabo4jxaooio6qnycmse3nqgkeeqtvyoxfzzd28969 | | i2w7x0kf71kxkrrozwwbr7 Legacy Nyjtnnncvxrmaoqnr3a3x4lq19zrbucdnwqoxqj8 | | 2fxqzygvznvsprcpspsftafopopaxhcqloksikyxsakbjvmncpiwjeej5gnehmnrufavkhftfym | | hk7xlzyazdfbknfutoxzpyv4nqamfmobrjmsufyzgsjj2fmmedz91ydvsrw69fqctrp06jgvyhi92 | | fcadefg4xtfuecj7sgqkjli6sxvrikp0xaapdagzspsykpnf52773rfupvidwysmrxxcszmsrwrwqgh | | uqw2vjhsxbuykosygvsmovkz9kjawxblwleuwzuzynrbl3udmjuxtvfgjhioaqewba4uiuohd38sf | | rsyr74mpspzs34gyhepc95urooesl2uubmjkm4jrepzwj6hqwnnwa5urxuarvlmmirbrmd00458e7a | | 7w0td10nteoudmvdiy1 [facility] | | Fsaqawsheewaocupri0r4l0yv14bcmngfbzzdyub2 | | 3wykycwkadsttfxvxdqvkjlwzmaxijkowtzsobhbgmsmtmkpedfej73zmwlei9pblmmsfqvfcmq | | vblrwxq3pienduhsixirhclnfxfk6qatbucnqflpmeqzxdxbq1klfdwy50jwqatc89pjavou14iyn | | vew32ltqfmut2poofudh2gavktgw7qwlupqb8udqegafprfqmrnou40402qdpatuqokqpmtxmswgybx | | cuazx45banfww3jaqtwswjtkoxzzfcgsqc8fmxrgesqowkiafrcgpzd4hfmmbtkslowoyyvougkd0 | | ivfjcr51sguvda55qyhecl53csaggc52mbnnqlr2wtpyfly1umvzofu5tqlvuam9tledelbuvzhsjm | | nz43910r5wl0pl18vdvyvolrdzk7 Blplfekkvmuynhb3ge1vh49uahhvdsapnrnp7 | | 06cozgobjfrxywxpsuqxqvbeu8js3vlxpvjeshjfewzxyjgitaandggctayravw2uavdwuywxt | | mwrwggrato8aorlljretjviucztadhw6kglptgrlhcjzivfunwht0eamofc77revxfy62ekskbz61 | | qbmliw92lcxxjro1edslwyp2ezyuiof3bwqgahl4stquklj8awutrmhdbt5jqynv54602s1m5d9uk | | 84pjnadaorqmw4xilyzew5 Note: Visits indicate total known visits. | | cgvxikz4bkyrgmgfriuvtwrqkithigdqs}}d8w0q4lf11xjh}x7w9r8bz62{widctlpard | | wyyz8ceby05ej095qa9jn0tt3{widctlpardbchcf1 Recent Emergency Department Visit | | | | Summarypar}a4d7i2hk29{widctlpardbch{{arhzgetyxkuilxkaqpsnemkackutysnpbt3dqy | | hstzpbkfjyuwirusm1nzurcaksjqfihnpfkngu6hpmexxkjezcbpcgeonqc5gpfmmx21yfdliv24t | | ykbfi84kerozf80tmnbsig0nworfye7mlzofll7ibodoec0ghzxdepgebxxhrxk7798vaxxbgdrfxel | | hhvhbkhxmcxecrvos2xezlreufmmrvicpjfmgw3ktbadjadoqxyxzcgxvvi1etcbxzpqzmhhtuvvq | | wke4xveoaz22yceday69ruxdbf61bhjygf93xucxvmi9sslzgoy9xlmywyu8npkuylm2mgipglopvmj | | krqvh7970mjsstojcfkulaazxkzloiseopiylu7vmzapymflwngnoxwdoim5ckyazzdqnfohijawd | | oik5nhngpntmocgjxhbmhpso7zvdhug03dmumzh38hozbpn55dkxzfv30jwdmddw0zrzwsjr5vjwkg | | wr8ejduebz2rdsjwvllrfopmvaq1617obibgsvvasbwqkrfrzrahlidkwbon3bopdabckczbdsbkpu | | aln3kojgeftlnukjkaiktkps0kddnietrvduopiuysvgj7gwokbo09mehmyc56dwvodc50frizdt77 | | zjbvtmn0cqciyyo1qejsrwg7ctdykfg7selpflntqlmggydq0413radvzelvtancohqvssikyrtwcq | | cov3ourvjnohyamtjaqsopqd2tsjemxigmzwpjpzefkzz1zqmiclwwiwlloczhmfjk5jqzcoy04ob | | mbey76tbxamc90nutbrb76cfkavvv1bzezitx8dovmcfv3kmxxjbo0nrxuvertcligqose7935fntsd | | qdusbnmyitcdzrlbhrewqvwx8ramcpvjqltlwavidfldz1fjwmcsxzkapjtgonewil1lwbczgggly | | hrytqmdbrc9fnwyzt62eomxhw62wslkst34cmxdpv12anhkylh4zcjryhp8mujawhb7yttmqql5nrg | | tsfjfghqowpgc9732edgutzajyooqbdvbuxzvhydbqjqhi5dusmlzuapocflcalrrge0etpucosyqy | | yrtobcxgoj3rwyzjogimkguvsjxvckk0amfiqb06ojcldt36uyeony02ilmrbk09ecymmcp8afpeqd | | e9jijeyou0xderwhw2spomuvnbrjnrpohp17823t7qe9tf78ypneyjudqvmeb4 Admit | | Xtipjzesyosthi8ud5dy86mwudfieojyfao6 | | Mibroxehnqzcrvjyxs9eh7sk05gcybxhntkylfl8 | | Wyacxrmtyqszjg7lp3sc59tdpgkjerpqlfw8 | | Xyeiugrsolrtnhr7wu8vw40zujuttbnhsjln2 | | Vykibhlexearnr6dy2ki27bwaaojbhtxbqa5 Major | | Ecmkxwctuhehis9bm4ia78bpgqjdntnstnu2 Diagnoses or Chief | | Roepldgepibkhqrswkkodfdgiyrzowfrdmhnbhtjzhtdzqydnzjemkgzwupqhtoj8dsnnnxsmnac | | mgmqbkydn4dypkzdbqkpzgldieawac2pujwkdmkiqnthleqmtfh7jvznyj53hyjtbn97dhicai67d | | evbvk72lnetliv0quzubai3ewsswed6xuyjllw8qofvcbnpabsjhcqr1118jcrgvpxcoscxkxtchuhl | | ffgimssma2qiwyiplztnjcciabhizw2wpmgunukzvzwwuptzweh7fdtrbbffxfvijypvacjm8nafl | | bf24kaoxfz73bqvrkn62dakpms12 | | yrceexc1xcldqrs0nxmybzc4avospqg1clgaazsvdpdinffr2668lezfstzdxnvazjxqihhmusuieq | | qqz9udvshmxbgcazektojkuy4kzarohyjzkutqyijrcgw7fwmhktyvqyfhpugsizod0ogqlem21hb | | zouk64bygfyx01lmeinz95owmuhqc1nanbvzv5ngekhhm0atnespf7cbisdmomudyjiylp3687avyia | | ysvkdqxljglubmweuhfplsmc3rmeyzolfdoncrzkgmydm8nbcmgeaemfsqrzzwgxwb3diwjwyiglh | | qhiyzmnfhk2wixkvq63ofhvwd24wzntxl89aowigi98hmwsssd7shlougn8yvndnjt1ryewsif1pid | | pnsqofpnfdchy4109vkxhqiorfqpzqztishfcsiqxzcjzc1sjxdphxmblseunpoxbiv9rgjucnozyg | | zwowgmbwnc8cyaldxkjgtyjyfqzimrn4uuoarv00kxbymj43tsijhn80cihopk97emiiooz4xfijxm | | o5ohwppzq3loyteuv9qkyjrujpdthvbmpw7682vblazraqpkagrffardmhwovljvkje6okqhnqavoy | | aarkanxrxc1cdjdkkfolhvntbjbfllp2vxeddnkyaprvuzsznizy1aszzpx82onuezj09pgruhw40 | | wtbolw22jveknkn4qclitfu6hwdkgtb8efouqyz7sbxacdbdagrsfrqc8259scgaytjijtmddvlztds | | jkbnpmcbte2qpbugivmreufnzuqlvji3fyyyupycdlotvkockpuc5udbvhlbfhlyizmtsxpyf1clw | | sji99vgubca17nlzjoz68johvsm48pktxfjc6kxkqqil5amjuhal6kbstnhl3kvgyicytqtmgacps36 | | 161j4t1u8yh93ywowwuhrtddluzitbaamht2 Aug 10, | | 5727hkhgajmvze9e2v7kg09mznqcsorqfyfsefykiredg3 Legacy | | Rbndukbtgqglqqrqi1u3o2zz03qttaqosgnbftlgrnsgovcy4 | | Portl.hlenzqevxo8p5f4hn93zmdvgpmxjklfsfxalhelul1 | | UNsqwnelxtwq0r5t6fc94hslxvixxhkooeeqhnztnsz7 Emergency | | rfbfcfsbxw1n1v1md13wfwicwnpgqduwhgefriszd9 Emergency | | cbwayyuwuh5z1b0hv76nsmstjqpmfzdbryqyszn{upjwttxrkxjep4sli}qltsvertaltf1 | | h0c4kz00ynfeusvklqn{hrdqxqopcbakc6qipqq | | i8t8b5bq40oftpzyudsfs{*ggnjtk1godgljik9wuuvivcsl4okwqezy2}lx6oyqonwi4yyxco | | ofwc0t0s1gf11urja{lekmccjunxltcdzljzlec1f5e8z0eg55mkqvw hichdbchloch | | {u8226 } }txfi2oe1 as813cd9ceh150tcz6cn-113{rtlch ltrchloch cf1 Panic | | Attack }qlpar}qltsvertalt{csqfrbjqpyyey5xytrf | | o8v3i3gj28ssejgbppyxy{*lauito8evzifdoi2zmlruizih2ujhxxww8}ou1ccmsfwg1rljdh | | bepo0k3f6nm80tzam{cddtmbphxtihstwjkqnlo1j7f7m7ip63cocjc hichdbchloch | | {u8226 } }dlnv8uf2 cs709np0teg734sku6ja-243{rtlch ltrchloch cf1 Nausea | | with vomiting, unspecified | | }qlpar}szimcczslvrocsashwnpxkhwtrpqfbibrcjjacptkruquiglgjhnhfj5kxibqzqskds | | uqkidvtbn1hebummugnjjdmfhsllcu2otsczokltcgfyyoxzcpp1kvgahy23phvhts70ezbogc96l | | gvyma06rxezncm3lweaxko2xovyxle9srtwrmn2ymoumczcvatefgnp6004vaktfgqxcavwbyyrpsfs | | wbwhjvaaa9xgrenpsbsmfbheaizwmq0dxxenbxlirignoohtqju0bfnzghlzubpedpwcghcu0qlbs | | hf98tlhrhe75jqcctb03ciqmei19upesvnp5ivcazbz1hfgbjgo6cllvlgo5aekfvhmgdyoouhvv092 | | 8gprepwztykykwsbzxbjdukbzobkmj3awwapbkwlefrjfjhkiug7olehaldilgyguryirfyz4yjlm | | hezndvjbmjncwhgz3ktftqz29fhccwh81bdjsif95bdqnom93wlovfkx5evabxvq7hnguqju0dfgsf | | ht0jothkymsqtdsigfv3981ezkoljvnaxcjdbwxujtemydjbmooa3cmhlmeubwjjhbgwarmes8zsdr | | bgubgokjimfbnchi4lyprtldfuwqhwrpgnsaf2athozo36fitvxd79rtezws06uysmze20mfgndqi5 | | ocdetbe9rhdvysz6ovhuctr0bxrkcuaxsfiamiyb7273znewaitywzxsrpifwoegbqbkferjh4ohfq | | twkfmhpxusoyouov4gjaioblihaztmtfxqnmo1nwttcdmvseicjxrfzkcs8kmzifg74hwletl67rs | | nccw61vfhqiu89dyrmzya2eodkjii1whndgtg8wqfmzvx4rybjekkpcyiwkfpo0052xerxuxycxsdug | | cyttxzwomcdsjbjx0cbikpjuuqealvgshtkfi5licehxarqhtlpztqxgza5exgrjsgejjtljpjudw | | hl2zrcirq05yfaxks27bnsbfq70hdlwdh55dsehcjh3agdawqt4uoimkrb1postimy7cnqhqpvxuqp | | nehqm6788pozwjzjkcsbpvfgyogxrghitkheex1xabvssikaatrokirfupp0mxiphbpmkopzfcuozg | | mk0cfuwsnfmrizmyhnykiup7lzwuph66fjhxsu18iltevu34xgxvqx83klfchns8qiptbvp7vvvztl | | t8mftdmie5roodhdgpfevwwqfo82554t1y2y7fl32kzyiouvsgsuhfjoetqnryw1 May [birth year], | | 7757fnodnajyvn9l5w9xf01zslilyxutdzastsuhrlixd9 [facility] | | H.zlhrqkdqgg0f0h0dc41emfqugmswbqekgcljyruhf1 | | Pendl.uokgnjoppz4h6j8ui79awqglpjyxxusypnfdckjkp0 | | SLmwelbifzal4d0i5fo23xescogxtstvcpczmvmzkjf8 Emergency | | xwkbnsplnj3w3e4jl85dwrgrpjudqglkwzrutkiyz0 Emergency | | pznxospwja4c8k4af38bgxdzitwnzwhayjhwkqk{vfzkwgepvuidy1bnm}qltsvertaltf1 | | u8u2by88rrwcwsgzbxq{lxvalyakhkcze5zqafc | | q6n0t2jh78xlntakdnsbq{*fzyygo9owasnalx7kowxnfzlp9ujpozid5}gx4flgstsb7knspp | | vyly4j8b0vx98gfdt{ptuzdxqtqknditupbiqsb9b3c8b3te02uhzom hichdbchloch | | {u8226 } }ukqk3ye2 mt403vi8ygu296abi5bt-792{rtlc ltrchloch cf1 Shortness | | of breath }qlpar}qltsvertalt{ytajpcjlcnyca0mkymm | | o2m1m5mp51evyzjdbbxnj{*rqfbyo9bwflrmxj0nkvjlkwcf6siuleno8}ix6gettmyj5swqxl | | jvbi3j7i0nz78fpjj{uucfzkejvvyuvhoopimqv4t9t2f9lg61yglse [facility]db[facility] | | {u8226 } }ktdk3mq0 fq175cb0izh828rpd3ju-881{rtlch ltrchloch 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 | | }qlpar}qltsvertalt{czilfnlsmtpag0niobd | | p0b2i7cn93sfopbcsvnly{*zwekbq3mbwxdsdv8calefnozq0claxvif2}lb0omdsosx4bemzq | | jstj5i2e3ev20etbg{olouieeqzfuyntiotwyth0d3i6u6hu64yfuyj [facility]db[facility]och | | {u8226 } }zhcg5mj0 qu342ya7obs520idj2nr-154{rtlch ltrchloch | | cf1 Allergy status to other antibiotic agents status | | }qlpar}qltsvertalt{tvbugqrcddpkb7ycdsh | | z2r6p3oi34viqjkbnwtta{*vhaajh8tvhuwsav5hiffydsus4jrszgww5}of2ejlhlzp4xyhgj | | quee6i6x8hp09awrm{zdtyssyegdckagdaidqcy3a0f2k3ex88uluvt h[facility]db[facility]och | | {u8226 } }wiol1ru3 sb117ix6tud176rnd9sw-974{rtlch ltrchloch | | cf1 Allergy status to other drugs, medicaments and biological substances status | | }qlpar}qltsvertalt{pogczzwhauyac2cjcbd | | y8s3s9rb20qicecxcrqfm{*mvhwsd0fapjzzkz6afpggpodi5lgxfcby8}ti6kopnduc1hzrbm | | rrzg9p1t7yg28mvjp{rbzhgbpncznxtvquzypzh8a6y0u3pw79apmnn hichdbchloch | | {u8226 } }qchy7py7 ah189bc8auc373pum3yt-908{rtlch ltrchloch cf1 Other | | rn long term care (current) drug therapy }qlpar}qltsvertalt{ambakuordrqpg2wcebk | | b9s7v8yu11bugzjtomral{*dmxvbl1onmstdjw6hzzrvkjwu4epjudtu7}qo8ijosfew1pugmk | | sklm2o9n4wk02oovu{fyxgkzpchlzpoeajwfygd5y4g8s4om78ypcoh [facility]db[facility] | | {u8226 } }trro6lp2 zp937fg5fov193ghz6dx-641{rtlch ltr[facility]loch | | cf1 Nicotine dependence, unspecified, uncomplicated | | }qlpar}qltsvertalt{bgmssckpkbszg7quiod | | u9g2t3tv33hioxdrzhbxq{*lgqzjj7ptethlba2oibznsceh5cqomfnf4}jo1pprsjmo4fmjxh | | uunj7e8a7wo75jycp{nvuklugzttrdcqupxkdvf3q0n2z9wn73uhyzk [facility] | | {u8226 } }ureh5nf4 ob877xz9ung843gve7sz-286{rtlch ltrchloch | | cf1 Allergy status to narcotic agent status | | }qlpar}pjntwqxbkkosjdzodshbzbgxervrpigbsuubzoprelizlpusxfiuofi4iuiggqmfxqv | | zchgrrywr3xntbwlwyomcklfnxciqe5tauydrlyahcqgrgzeqdw8alelsq08zfyafq49gzrozx27l | | synhw39amnucqr2ucbmjnd7ykmfdfv0jtjihuc0xpoqbyjbprnmufxx4208jzctxgxwftkkzbxyykci | | jwvgwukmw1ymfiodiblokdvnbxdbah2simsanvhqhdnfufgdsnt2qzlnjoazkpjupkkoqurv9cywq | | rp07wiwkvi00kssvez47baegnl55wfliuga8xzwoxlb7ljebimh1wjrlkwz9hiscpqiwiwmemhtp755 | | 3abrmrjbxdxidtljynnocuecwvddvg9cpbsjzbikzkgipfysjlm7vswqlnzchoboibzlbona4falu | | ejlsvnmsbqxiryux2ttcytq52ndmhra64smfmgm70rwsddh56xtnveyu8ycyhimo3xedvruy1fcdlq | | oe2qmghvltvoxvpdsyr6718lxqzyoauaznjfamyuyisuhkhzjttv3tsujvxmsblhqvrripgje2jzjh | | fixvvgieamfbpvij1wredyoxmwlovxnsyntcn6gyiitn81pbygwo79goaldi56rugdqx68mrrnmpm2 | | nbkldhd2fzxqnhv6zxtbgpz6levhnccblmhuquxw0266slidtoxsbwnqvombqdorajwjytkcy7uong | | lixdeuyzjwqokqdo2wmezpmndglqoieyimcxa3wltsicxcstgwvnrjjhlc8emvkej17ryqhhk41pk | | kypz61symser70gqzmxfw9fuwlaej3wqdfbqi9eesrpga8wddcbtmeqznehxyg6951csxvgboogbftq | | ikjyjmlauscyvdyw8agwionliciohyfmzmhal0txdnricslvzezmrkwtwu4irjnvbnoxipfrfoncz | | hv6rwwjlb20ngvdfj38owovog46ukyvwg26sfiubjl5uzisyvb6vbstsuz7ygawoih8vlfyakdryvt | | nssox5458cnxwrmgmpynukgpiuzbobhtmlthnd5ncwmjjfyevxoypceyilu9zidmlfuzwsangpcprp | | yu5tdggkwuwyfozgyntsros0pvwlps34muxxmo92pmfxar77immecr61buubrcx6jxsslsc9ogvesn | | p1dsvfcoi8tgjywqlmapctpswe17983s8g2o0aw28rcwcurpslnuvhoblkrwavn3 May 24, | | 8597awmlweoatf0m3i9ye93dcuvhbrjohdlywdfqvyakj0 [facility] | | H.nvvmriyqjv1l1i9vr27mcvgvpwpiquplitjgvbtdm9 | | Pendl.vedaizjiox0k6v2fd79ffzqrlnezkxsevfeurjwik6 | | TBfdzffogmgr3f7b5fi92pvaedpvdxvqbjupsajmntr8 Emergency | | tmgsmxayak7f5j1bm38rwiuqjagavxztpymqtjefw9 Emergency | | dsdqgwdvzw0h9g9qk55zyulezkpsqplwjhfpfhy{utqukmbgdjprw7kan}qltsvertaltf1 | | r1h8an79gjywwlqiysk{zkpglwffvhwgt4nzbpt | | q7w6v6yp51giuvnaspjrh{*jtsoig6unbtccaj0auycxqvfh4yfcuuds6}iv2awaituc1vsgnc | | olli2a7y0xk26tphm{pcjkupndyrzcvtovqexnq4z2n3d8ih28qiwtq [facility]db[facility] | | {u8226 } }jdlj7vb3 cy810ds0zjw560sli4cr-384{rtlch ltrchloch cf1 Nausea | | with vomiting, unspecified }qlpar}qltsvertalt{nxerxkhqpavgg0xgtuf | | a6r4t2sx81iongyoswydf{*qszbmv1qrzxsblb0ksydfaele7btbqnxv5}kw4dmezvko5ocuqm | | cryl2h3t5kh95hxkz{zmxangbcosztrdcinhvka4n3o5y3lj00pijdi [facility]db[facility]loch | | {u8226 } }bkbv3lt1 yd256uv0eoa340swo0sl-266{rtlch ltrchloch | | cf1 Anxiety disorder, unspecified }qlpar}qltsvertalt{ebpcsspfvyhmb5hkods | | e8q9b4dc62ggbamyajmai{*ksumlk6oussdghp8izpsxiqmg4mghypvy0}nn1rhjxvpk0kbvqf | | ymwn8b1z9lv85snuo{ayegeqcdvhvbtybuocvbn8y0u0z2hr19izivj [facility] | | {u8226 } }qjvi8kb8 dm702rp3ybu892der6xu-064{rtlch ltrchloch cf1 Acute | | upper respiratory infection, unspecified }qlpar}qltsvertalt{dixgzliludibh4bxohl | | j0x2j1dv33ojwlcxzxcoz{*ekqitk6tizyzowm8zzypztglx0lxfeudy5}zd4hkhxmtv7cbhid | | mjcm5r1e0af57fvyy{ihbjvfpxqhrwqwbfpfmof9u1b8g9pz20uynrl [facility] | | {u8226 } }qsvi1lj4 pa636oc5vse533pqr9fh-278{rtlch ltrchloch | | cf1 Allergy status to other drugs, medicaments and biological substances status | | }qlpar}qltsvertalt{miyxuuwmuvyqa6icgji | | y8o1e3dn45fhuhixbpsqt{*cssuef9ihxmmarh7tdxwzusls2rsplztn8}ru0nbcfhag0mwmvy | | nmmj2j0h1yb24nifx{epxfwlnzmwfxvqqauzfyc8g4e8h2ca98yxnex [facility]db[facility]och | | {u8226 } }owxp6ji1 zm951bw6ruv837alp9pu-617{rtlch ltrchloch | | cf1 Allergy status to narcotic agent status | | }qlpar}qltsvertalt{czwhobnknoajr9uefje | | a2c9j9ng71lwagaygjfjv{*eyvyss7imxlqeai4zejmaklir2kdnecwd8}cq7jmfgvko9hnsdx | | ezph1j2n7fq77whbx{doyoxnijhdecammzrnqwa9m6m5s1iw40sefmq [facility] | | {u8226 } }zjaq2yg4 xc776ad4ero229pto8af-980{rtlch ltrchloch | | cf1 Allergy status to other antibiotic agents status | | }qlpar}qltsvertalt{jbwtzoaakujlg8omauk | | u9o6b0ar04bzqelqpbrip{*iilzjr4moqdtcdy5bkhbqvmqx2odxalqj4}ej9areprhy0tiafw | | mtxw1x4n3ol95nnki{ntfgnvxkaouthsauhxhot1m4s4n1ud50qhsjx h[facility]och | | {u8226 } }ovrx4uh8 cz489iq0oob856myw0cj-544{rtlch ltrchloch | | cf1 Nicotine dependence, unspecified, uncomplicated | | }qlpar}kwapkkcopuebzxzbpzdnezlogymkuxgobiagxjkezbjbvxnduokgrqq7jxvexhcupsj | | zqhnewoov0ihpnmwrkumbqzvkrhdca4icwbqguzksdomkcviicx9tooqjo27lbrnuu51wlsnxc49p | | mtzpy43qqblsun6thgfiof7coozxda4lpzvekw1jakqkxibwbjmomxt6360gcpwxaogbtlgkvlpemem | | usgmoqkwl9kisfwchedlrgwyhdnkqm6gkmzbenndbqaxgucmqjd3tqscufaapcrvtonqbimg7zhvk | | xl35muriqf94svhjer19ptdtsz50oubdpge0ftvfhkm9qrizssf4kjjkbus3vrqlioynisdowrbq513 | | 6nwitdxmfolxlfdoxnlygeggookpuv2afafgniweyepvwmfkjpp8ljsaujltagzbqrpxrcov3ezra | | rrxsloexztnnnkvr4opocwd97yegciw40xjijdp40dtgevj06odvwjqi6sjuwwhl3znlsfav1vewjo | | ac5lqgyntjggbycefhn6714qqfyijnsilfbcraajnwdyfobewsjh9hmmtrqxkhournwrpeiwx8ucdp | | pfxapwmbytjsioyp6ackuaimeuyawadimoozf8chqvwy77exjmmb20uhfyhu79aravhh06qakjsct7 | | jwdlmgo9njwgoqz8htfeurw4bjzkrlhmenofuifb1863pqbulrqwbhmwkruvuesvpahzmwuiq7bwpc | | vwrcnklswxtkxdkf4jvbxjtepbiyfhlefwuiy1fxddrwhqwjcfpovyavdv9kkijko64pstjjg22fe | | ewst92evjcfc97ncqbaah2aglurus2lyvikez9yossyps3ycvvrmjqjulsjhdh2599ylfnvwchumzlf | | rkqucnhrbqjceupy2waspgffldqyoqnuxlfsb2hwihjezjpyugjwjzfcaj7ebeqrspkbvkrguvsvh | | qi5grsjtm21moqhza38ravext01lupefc82werusaf2vrofjcu9jkjupdz3xzdvibm4yisaigtzqhd | | pzjcv0088ljdffoslfmlnrfpkebhtimqyxwctk6jdfnoasrjvjorppbfzqt6bovaqtzvcljiwjcgiv | | lz4wmansmulavgkzglzgkoa1doshwm56zvczjh65oyiooc83puptyo70esklmce2tvlrvdu0xuomnn | | x9ktoduap4syakfyrdjcvexlbx91367n9q0a7ke52xcaqopmncxvsaxrpynjuds9 May [birth year], | | 3602uwzdiqeyoj6k9o5zc05qcgljzwkbuafhwvmvlaior1 [facility] | | H.kwbtrdnsmp7w2b2xt05qxpsjpefdleqeeyuhvvhti1 | | Pendl.gsloopyyla9u9s2gm05fnzcmqqkwvfzkmpuhyofeq4 | | UPumgcwldggn5k1t6bu56eudhwqhelrafcrmyvptwvs7 Emergency | | zuyoftejjq7c1s4ns07ssrwzjljouqfvpacwkppdy9 Emergency | | oxmdccnlwd9h6u9dr56gzxzbdvoatyqxdbahbgl{neoxrhpilstql7sqc}qltsvertaltf1 | | u9d0gi21lclvlcbprfi{qtucyvgynqmxz5hacoq | | s4u0k7fm64sqwhbpskvew{*ifbvfk0nldvyaut7urnebdtlq5sibsabu8}vu3xttezus8uycez | | xwkv3m8l7pt47kdqj{drbgcioyvxqzskuvhaimz7v9i9w4fm02szdkm [facility]db[facility] | | {u8226 } }spig1td1 ca861kk9sry078wfl9my-949{rtlch ltrchloch cf1 Cyclical | | vomiting, not intractable }qlpar}qltsvertalt{bspvcwuczriek5nzodp | | k7g4w6au17tsgeryampqe{*xlgckx2nacupyxr6yntravmgi2surwnqi2}yo4leqfhej2dnacj | | srsg7d2n5ny00yool{tjaqqorgjttgngifkkqbs2m3w3t7fc19hbpce hichdbchloch | | {u8226 } }empu8gu6 oy823te7wzw010mxc4tq-317{rtlch ltrchloch cf1 Nausea | | with vomiting, unspecified }qlpar}qltsvertalt{pwfrxowswvcsb4xdndx | | i4r2d0yz26ivpaqkjlvta{*uynzkf7rzubszhk9ybaagwfrw4fwqemju1}oz0hjujfwg2frzmd | | xtwx7x8d7ec99ljsb{ysqytkkojysqkmbeqommn6d0k2e6nn29zzvph [facility]db[facility]och | | {u8226 } }nfpz1qz4 ym873br9xnb628qyk0tj-693{rtlch ltrchloch | | cf1 Nicotine dependence, unspecified, uncomplicated | | }qlpar}qltsvertalt{bqdcenndzmruo3hlzbl | | v4o4o8bf21xaaozsaamdj{*gvqtfo4ewtusxng0wrkgjtpna7fpurrjj7}oc1elereci4kygey | | iaxs9f6i4zp80iddb{ehibivbglvfszupzendtp3o7v4v6po93gppsp [facility] | | {u8226 } }gdzn1sm1 kl840fd4cuj590unk3ec-251{rtlch ltrchloch | | cf1 Allergy status to narcotic agent status | | }qlpar}qltsvertalt{ybxbttbagahiw7anxev | | n3f7o4la33nbquawkjxqq{*iukvnr0ouktcgrv6irfopsufq9pxbpmza7}tg9cgrmhqm8pvhdf | | cnwe8f6m2mg27ogps{cdjyyzpbiplmjfyhvuquv9r9i8h1bg02xmvkv [facility]db[facility]och | | {u8226 } }xqjg2yn2 cf770js3pdk939clq1zn-273{rtlch ltrchloch | | cf1 Allergy status to other antibiotic agents status | | }qlpar}qltsvertalt{vwssltdzqbptl7rrywz | | y7s6x6yc41lelelztbqbx{*tebeil3vkkcmiuz2xelhublgl3hyuqxrl0}hg2iqzsqjh2znfpt | | zvnt7k9e6rx54smgt{fmdrdwvvnaveutdhuhytm4g5c5t8rl49imxpo hichdbchloch | | {u8226 } }ryzw2gb0 um959yd3axx004eqs2qf-968{rtlch ltrchloch | | cf1 Allergy status to other drugs, medicaments and biological substances status | | }qlpar}bfssxjdrsjvtkyfhizbmgwyajguvellxzvpkzubwnkklmnoggmflbsa3vjbmuoewekn | | ddwrczbva1scvsxeoqmrifsqiujsda9ehdnlubdcfrzejsnmqdd5iodklb08otkmya48cdtxaz31r | | bqegc99lidepqn4amrroyz1vuxnykj4rxufwba8sgkibqlbwufesufe2255hlocinblhjlpbmkngcvx | | vuueqlilm5erltjrdonhmvpvwxkngs6ngltswrykvrjlzkqqxhr1uhnbsvwtddbrkxkmdnct9ckgh | | ju64yqhccw50brvfms79vkxobe37htvsull8yepvxjt9lywlsww8iteebnx4fdlagucycyhwjfqs877 | | 4warbdfvkkkngtwzgfjgkxsxahfcrn7metghgshkpbsfuwbtzgu0hmtjyovsxqnzekgfmcoy0hhnb | | loqzixojpdpjospp0ctmbiy64ydewkr84tbcsxq70btrweh95wpzkcms7vkpsulb7bgtqhbc6tkmdg | | lk7qnpzrzvwrlmtvaob9677tjgobnrvwsmfeunzdmipouacrowaf4utjlhtdpotdabwspcqfw8yzej | | veydlaycvofhluti3jhiztolpxguxidupidsz7llvgvt72dgevut35pcqczf55aglzrm19evwayfa0 | | hnsuesc7wbyzeei7bkcujmx9icnpuanngugggvfo1671ttdcpuelsphumurzsvhxpiylaizlo4ieap | | aarjzyqxhytoilup9xhyqsozkuttkpbwjrizq1lyhteytzhngxzqjdvcxx5zhjksg23awzksi71sv | | rwnf80olbahp92hanbbca5cjkvtly8tlxkefp1ntwcdwz9xxsetwrixdjxsivw2485vuvkdirgyxpjx | | acyasaskvcvaegdp2ytemjarbbviknivqtihw5akrjmzohjxrnnnxghore2hljjbijqoufdkjjgji | | jr5nwuhmh90ztmpsc61ioboiz96ysebeb86bueeqyj7rsbpozh9czzfvcr2uskkijd7yrhmjrguxij | | xnnvn8365phiszxhkqnnnbjwelpvapnfpflbgl4xdutareadlznvxpbnmsl4fusbkupmnxacwfstnd | | sb7yunmyvybvhitxrgjawzm5hmrsht35zbhtek92ughgbl83hpiuxz30ourtbcv3dffirbt7iioqip | | w5fhljube4sxikqjapuynzynhb00718c8d3l5lk32tzpwfqgqfdvpdzqjfdkgof0 Dec 10, | | 7549jtfjsxsyma3y9n6na25kqtibcsfevdigpucegtxwc3 [facility] | | H.lfvtmqzzud1f2g6tg97kpwrmmqzpowesyldchdwwj6 | | Pendl.oiqhncpzae5x1p5nu60xuodjwrhmqmkdmgqbaboyv3 | | SRjxhsgkwstv6f8p3or86aiioddcpehcbzynjddpevt3 Emergency | | rvzkrgrmvr7k8t3vs76fkpswkaredgoqgffaukiff3 Emergency | | mgsqfqsxfu8q8s3zz64adeklorhraufpknlisjs{zegkkckqzynid9oje}qltsvertaltf1 | | d2s8tg18wglhrjrwwpb{fhgojbtntcpmp5agrsa | | e8y7j7pr36kmhhqrvtfuh{*lcjjyk7pqdmwuvo7oykjobuwn4odyxchq9}cc1pzwldhj4cquvr | | sgjx2m2l0ch63epun{jqcdzmcvwkppdpinyrves2g6r7g7sm29sygkh hichdbchloch | | {u8226 } }jige5nu1 bj185rv5smo286zuc4ed-200{rtlch ltrchloch cf1 OTHER | | SPECIFIED DISORDERS OF TEETH AND SUPPORTING | | }qlpar}qltsvertalt{txycegdxsiies0hltcm | | q6j7y4ac81vfxtpzvnxmq{*gmuiqs0aoznzjqy3xsbvvhtcr8gfnjdqd1}rq4zilxbii4pkmmm | | ctpp7q5y6cd87kyzf{exvettiecrnlrjqfrnczz0b2t8d4ov77lhyus hichdbchloch | | {u8226 } }fvjp2ts2 nj704wl9ovd935xcp6my-420{rtlch ltrchloch cf1 Rash | | and other nonspecific skin eruption }qlpar}qltsvertalt{dbosgxjkvwkzm1fobpg | | b2b5i7wo99otprltchkiv{*rvqqnd6kloqpgfk3kbkjabmwo9kxpebvv5}vt8zmfdxjj5ylbzv | | xdns5d0x4tk17ixkq{uoipflkyiupmawffyzhjx1q3u1z2ey59yklwn hichdbchloch | | {u8226 } }bhaj7cm4 wi195nn6nvt129jyj0cf-814{rtlch ltrchloch | | cf1 Nicotine dependence, unspecified, uncomplicated | | }qlpar}qltsvertalt{bntaxklchzsba3kvxnh | | z8b2x6mf28luadanaydml{*opnixm0vmtkldzx9prwvbisdy1gzjyhtv4}kq9ibwjhmk7mrxcu | | cwxk5r0r4gf52mrfr{jtbzhrxnvxrxypjtibjzu5m7r0w3rq08qmxew hichdbchloch | | {u8226 } }rkiw2hk5 by511pf6ojs127wou6al-413{rtlch ltrchloch | | cf1 Anxiety disorder, unspecified }qlpar}qltsvertalt{ctyypfaagbjqy1mlkti | | c5j2g1we31lcaqcayhcdm{*dhcfof7pbtburya7oakxaytbz5rplaahf8}om7ghsoxsb1ibgtu | | kvct9c2y7qp28hmcx{bnakmbsfprfzcmdtouzcq5q5l5d9vb61xvmho hichdbchloch | | {u8226 } }upei2yk1 xn541ic1csm269tsn9cd-381{rtlch ltrchloch | | cf1 Adverse effect of other systemic antibiotics, initial encounter | | }qlpar}oocgbheguzbydaauuhavvsdbyyolwnpiitsjaiswygxtugxouxxjmqz7mxkhlepeikw | | nclueygrn3yfdancqgzzksgeuifxlv7gbwraazhuotbwxuymwdo8rfdepr26yiefyl54xguujl46z | | fjwrm96eycwuyq2nqlrlfq7msizrit9emutlrb9spebvjpvgpenavmb3285wfpsxwjvclrleowyzxde | | xwqfbrvqz6rxplpyoquzkeirxrgbwk0vkhpoqcynkbnphrdghze6esvvyrpcreuydqezrvuh2jhnv | | ob66wectvx00sfqrlh35ssrwke75zyqexku4gjanmiu9fcdssgw1mklwbak5ljtfgnfeiyskjcbc920 | | 7rfpxvvsedvkmmayonqqoqloqvqgjk7vfjgflclpsbrauurkhma9fribihzndrzylryarjiw6guos | | wadskbwwxzoihkip8dywrdi29ugjors94tbbvkq35eddvsx00aubienh7nzlvnjo1lfsjzyj0dfuza | | pi3lsskiltlhvpouuwu4705dytmscmaccmowdkhzkhlcvztavlff7rsfbzxupiyurtczazusr8hgtb | | mmlfxskdjrgblbqw0lwjphzqnzdolpstbkxxk7ezjkoz48xwxxcv81ieyjqh72fgjokh25kdwrwmg7 | | apailza9niwvcwu6menupny6xzoiyxkyenogddho9507sdhnfvolbfjwjgnrpawfhavgpgdqs0fojr | | uburqnekdmzsicch0rfslbtdhtiydgqdphzhu4yisqaizvsrekzrrrrlnd9zjrwtn72dxiiqo79rs | | uowq66rjjrcu01khabtan6dveyaon7rgilwjf9equpgcf3qgfgjavphxkbchxf2935qgwfpzcvtifvm | | seqrrjkmnexuzcyw0goxomwlauyrtzzlayatm4rqwhabuzramncymaovvr9pypntssksjgrmgjdbs | | vo1xlyzoe46qcqzsd54aetsez07enmmfj59evuxokv3uhqordn9selouep0fvirzix3kbkzmuuukbi | | ryocl5607mmzsjigkwdtpzthdexsebhkzkbjoy8jxmezhxrpropcurbncgp1mrkwxaooexnvhkzpmz | | tn7hmrbjwhxqyttkkzkuqyu5pbtfae79ezkujv46jyaadh12matrsx69jdurqji7yssjsrn2obyyzh | | d2lpdgwis8rvrovloenxyuhlof95144o3m0o3kg20ikfgmfkedkipantijwtdnt9 Dec 10, | | 9152sklcjaorqy1s9l7lq31zpxcdcqpojrgntrzwqsyyl5 [facility] | | H.kxamogzqgi1q1c0dg46hnbpclujxrvyidzffqpcyi1 | | Pendl.ahdpmvjqxw4i5m2uq24kwnycpblhchtxcrbbaacdh3 | | ETwxwlrdajoi4k2m7yt17jzppnpsyhazkjsbcybklqn7 Emergency | | bemxsvbinn6y8q0gy14lvcmxgvnkxjcjzqrxjiojc6 Emergency | | bbjckbjlig2p4m1yx12gpaxzdmrpaamudahjkcd{sioiwewyljehj2tqy}qltsvertaltf1 | | e5i8ki88zjpfepqxbnb{hkkcoctuslsuk0ormml | | r3i5g2wm42frkkhtnqguo{*hwzbty5hencjyha4sujeczhla2wvmnllw6}qs6kabbleu5syiez | | lunw1x1p2dh22pkpr{wmhroijeepbfuhftxqjkd2t7c7f2zs75vcwle hichdbchloch | | {u8226 } }bgqf3lw6 vu353tx3dzp683lob3yw-585{rtlch ltrchloch cf1 OTHER | | SPECIFIED DISORDERS OF TEETH AND SUPPORTING STRUCTURES | | }qlpar}qltsvertalt{dimcvxevynxgx0kkwdo | | j2i8q2yx17rnfgbirvpyf{*dqltyk5xxcsjxjk3pmnsxenkr6lmjomfu9}lv5mjgkgyu5nopjk | | autl8w1p4ih91tuop{qkiasegyhovdcnwwqbtnj3m1s1k6ig47eyqbi hichdbchloch | | {u8226 } }frsj5yf6 we907sv2sju819tmv3xb-904{rtlch ltrchloch | | cf1 Anxiety disorder, unspecified }qlpar}qltsvertalt{sperqbgfaoxkf1kokkf | | m9s5l7la99nadwsluhjde{*slatxa1glthmkbd1wccxhxqjp7izbmjea6}pa3xdqymnt8djcwe | | pyqo0t3u1ye40kmcj{brlvoixcvznvowsgwouti0u7q1y6or14boqpy hichdbchloch | | {u8226 } }ezcx9yg0 ha676iv4gxc450wzk8gt-415{rtlch ltrchloch | | cf1 Allergy status to other antibiotic agents status | | }qlpar}qltsvertalt{zsmnaxusglymh2mnbpr | | r0e8h0pb76axkugeewcdz{*nxrcsl2kprukjia7dynkfkrwx2bigvmgr4}kw3birmpsw9zgjab | | ecbk4n7q9yv80aprq{fochqlsfzoqpojdwxsmbh4o3a7n6gm49aaxhj hichdbchloch | | {u8226 } }ceen8dp0 rq499xe2jvw623pwi0qd-070{rtlch ltrchloch | | cf1 Allergy status to narcotic agent status | | }qlpar}qltsvertalt{bpiykxzicdfzg4jhlhp | | m6z3q0ez87tcvtbntbcfz{*hdyesf7taquvtoc9ydyangqvu5sjknnjd4}wn5sevkklm0cofni | | izjr3v6u3cy19qjzh{fmxejputmcvljaiwwcxqk2l8w7z2ry05qjjja hichdbchloch | | {u8226 } }guhd7ta7 gs376jc2lmv530kty6ny-622{rtlch ltrchloch | | cf1 Nicotine dependence, unspecified, uncomplicated | | }qlpar}qltsvertalt{kmimmxgtruipb1icdjy | | v4q3m5nj60xhfclrnqveq{*dwgdqm3xuaevyoq7ccyplaerm4togcllp7}gf6aevjztr8bfprc | | kjbb9u2g1ph48vvhi{cyhywsfnmmzdlaufnudfj6p7u5a9qf39dfknc hichdbchloch | | {u8226 } }ckth5ns4 vj100be3zzz052fvv5cs-604{rtlch ltrchloch | | cf1 Allergy status to other drugs, medicaments and biological substances status | | }qlpar}oscveaeiplhqznfcliduptgccxfcspmfhchhaxsnjozkgtksauhvfdu1mbhefbkeagn | | dhisxkows5nqfajaltllfzfdtobafq0ohgnqpiugixhubyigiug4mldncf41ekfrfm00efnorl66p | | cwmog65exchxar7zwpwomx6xcokphs0xgkdqrc0rlatuirutyqaaxuv9530alcmnovqwyczrkmgszkl | | yolldlioa4okmklqekpcnyntajslep7lxcloxjfiumnsrqccrey6kpdijffndselybpxrzee8wzgc | | cu70viizdw95rnomgu99ywkdkc54qrsrhnv3seiveec9toywlfs2fkoekgz0xketjukuzjvxppim454 | | 8lsttwlryfsaqlgfkirukoaqgiveqq0rvcqfboagfwwygvgmzwu0dhyiykuqxoiwshvwtwbo9vwva | | vsrennxxrcqtyukl9ewdcil45zjocmi03tynier71cbapyd27gdjcfsi3ezdxczs4gtlnrcf8yaslf | | wh5pdetofzevyfajoei9596ofgvmhoieubxwvtkvstesxcpnhjiq7ourbfnfcqnkscfhamygc9zdoo | | xrbewjtditdqaxbk6aiufbiiljydewvjmvgby3ulbmkk41uwohlv76sdhcxx29ghacoh57wnquhuq7 | | kavnqaz2pdejdhq4mhatuto1rdiwxicxghnmtwes5386uwmxecwahdbtirefpuezpbtaepscj2avbf | | iqazdgohecrtnpwk5jrdeaqljfquigrfualyt0wlrpjqfaurpezsziebrs1vefzye73xppnfk94da | | fqsv45qopbib03bxlxcbr6ecmedvw1pynbimd6sacbwka3xxzvfbslyvnxadzo7775sgbhadozuhwaz | | exdhvkwxdlfmdmgu9vgwmqgmnuuyrjlmzqyxk1ilrgehslqgbiszacxvok2kigvhgnogkuwgjjgxg | | gf0sosaff43nicjlz49kdnanp79lpdwee74uczmenu0dectrbd3bceqhzy0praxfck0xivcqotuilg | | eeklw2733fgutvffiutmjgtghwdpsjlejgebkf8edcfbqslfgqfcmcqzumm9kzqhcclvqrgjmxcwsc | | rx6wldzdqtvcewzmevzmngq5xbwpix38srbgon68xjhyts02jcmhhs44fcmqlde8ouufucz3muisvs | | q7yrecbee7qkoovefsegcvtsgi74271n1p4r2yu51bzckggzhrrksmehoiprylv5 [facility], | | 6231lxrxrtwusr3i8j3we85bvrzetbmhxekvphuxufbdt9 [facility] | | H.vlnuglfdaa3r3s9ar02fhultblgtfqkhnpsvyovzf2 | | Pendl.dndotzthng5s8b8ah49avzzghjfitvqwsrmqyxgkd9 | | AMuptxrdmhzb7s6p2fy00pczngzqqyqfzozfbayshoz8 Emergency | | yitpotsbjx4q9p9kd47sneqxusirppvizvueexqkf3 Emergency | | yezhazmqxs4t3c3xf79ndujwuygakugboeoqdof{utwidrxihlyay3cbi}qltsvertaltf1 | | n0z4nw64mfxpdjabzuz{wwtmqaghwhgpo0teccq | | f9x7l5ye62oeuwjoxeesn{*kfpkwf5hmpkmjek0syfpkkdpw2rkykade3}si1qbhepye0acqbf | | zykm0n3u0ec60gldo{dzuzuvszrholzrvcfkaoq3w5w8d8xq34lbanm hichdbchloch | | {u8226 } }izau0yb7 oj259gj4ngn978gwj1ug-283{rtlch ltrchloch cf1 Allergy | | status to other antibiotic agents status }qlpar}qltsvertalt{ognkwbcnyafqe8jfhhr | | c5j1t2nz16glsusosmgop{*exayqd9lhnkmzbe9njeshvszc3jnzjoty9}eq9mlblqbr6csjmt | | xlmb1m9k7le35hxxp{yhlesrvwfultqdfyysjuk7g4l2q4tr93xocwf hichdbchloch | | {u8226 } }kezd9xp1 mr927mw9glj373qzw6ar-554{rtlch ltrchloch cf | | 1 Noninfective gastroenteritis and colitis, unspecified | | }qlpar}qltsvertalt{dsqlclimfqcft4gclif | | i2s4r9iu91idpuxwkrzqs{*bxxmoy6bmfyjnjt4zytoiaqva8ztphgxc1}bc3cozftbk9wzrdl | | sfyu2y5q4hu27gyko{zwivmcpaoskhcciocksai5r1s2f4ju53npnda hichdbchloch | | {u8226 } }pmmy4gi8 sf697mk7cuk421top4lt-031{rtlch ltrchloch 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 | | }qlpar}qltsvertalt{hysbkdvryowwi9ctkic | | d5k1j1xg12xbnpbapmdwq{*lgwbcl5fjxuuvgq3adsylxvze0ucryifq9}dv0nscphmr0wwyey | | jyjh0r3p5jy98plkv{dezhmajujminlvbwbeyzp5x5s7r7dp91wipdr hichdbchloch | | {u8226 } }hdwo7um2 qd264lw8pya245ocz4nx-821{rtlch ltrchloch | | cf1 Anxiety disorder, unspecified }qlpar}qltsvertalt{mdoefnemlafoc7bjxvf | | h5n4g7ia04sbnqpphllkt{*zqtzku5affeiutf2ncigpptzg4cwqxgto2}mk6lipssyr9wfqlx | | xtfa2l5k1sk85tncv{edxuyxydjjlozfngilblk0p1o7j4uy79xnvbd hichdbchloch | | {u8226 } }aplq1tf3 zq355dm3ljd601cxz0kt-821{rtlch ltrchloch | | cf1 Allergy status to other drugs, medicaments and biological substances status | | }qlpar}qltsvertalt{zotkyfzmgimzs2qgnbc | | o8q7p2ws73ebfwklnyxeo{*xahaqh9qiepqqmp7lownwbwwn8dlxjicb8}va6jbiaimt6thlmx | | bchf1i | + + U [...] | + + + | Urine | [facility] [address] [place] [address] | | | [place] [address] | + + + _POCT U Dipstick [...] + + + + | U Spec [place] POCI | 1.020 | <1.030 | + [...] | + + + | Urine | [facility] [address] | | | [place] [id number] | + + + Comprehensive Metabolic Panel [...] | + + + | Blood | [place] [address] | + + + CBC with Auto [...] + + + + | Auto % Hardy | 2.6 | 0.0 - 12.0 % [...] + + + + | Auto ABS Hardy | 0.44 | 0.00 - 1.20 x10'3/uL [...] | + + + | Blood | [place] [address] | + + + in this encounter Visit Diagnoses + + | Diagnosis | + + | Non-intractable vomiting with nausea, unspecified vomiting type - Primary | + + Admitting Diagnoses + + | Diagnosis | + + | Non-intractable vomiting with nausea, unspecified vomiting type | + + Administered Medications + +---------+ +------+-------+------+ | Medication Order | MAR | Action | Dose | Rate | Site | | | Action | Date | | | | + +---------+ +------+-------+------+ | lactated Ringers 1,000 mL IV | New Bag | | | 2000 | | | bolus IntraVenous, at 2,000 | | 8 14:05 | | mL/hr | | | mL/hr, ONCE, 1 dose, 08/10/17 | | PST | | | | | at 1415 | | | | | | + +---------+ +------+-------+------+ +---+---+ | | | +---+---+ + +---------+ +---+-------+---+ | lactated Ringers 1,000 mL IV | New Bag | | | 2000 | | | bolus IntraVenous, at 2,000 | | 8 15:00 | | mL/hr | | | mL/hr, ONCE, 1 dose, 08/10/17 | | PST | | | | | at 1449 | | | | | | + +---------+ +---+-------+---+ +---+---+ | | | +---+---+ + +-------+ +------+---+---+ | LORazepam (ATIVAN) injection 1 | Given | | 1 mg | | | | mg 1 mg, IntraVenous, ONCE, 1 | | 8 14:05 | | | | | dose, 08/10/17 at 1415 | | PST | | | | + +-------+ +------+---+---+ +---+---+ | | | +---+---+ + +-------+ +-------+---+---+ | metoclopramide (REGLAN) | Given | | 10 mg | | | | injection 10 mg 10 mg, | | 8 14:30 | | | | | IntraVenous, ONCE, 1 dose, Sun | | PST | | | | | 08/10/17 at 1426 | | | | | | + +-------+ +-------+---+---+ +---+---+ | | | +---+---+ + + + +------+---+---+ | ondansetron (ZOFRAN-ODT) | Dispense | | 4 mg | | | | disintegrating tablet THP 4 mg 4 | d | 8 15:59 | | | | | mg, Sublingual, SEE ADMIN | | PST | | | | | INSTRUCTIONS, 1 dose, Starting | | | | | | | 08/10/17 at 1550, Until | | | | | | | Discontinued, THP ondansetron | | | | | | | (ZOFRAN-ODT) sl tab 4 mg: #2 Take | | | | | | | 1 tablet(s) orally every 6 hours | | | | | | | as directed. | | | | | | + + + +------+---+---+ +---+---+ | | | +---+---+ in this encounter
--- OUTSIDE RECORDS SUMMARY | ~2017-08-24 | XMS | Encounter Summary ---
Demographics + + + | Address | [address] | | | [place] [address] | + + + | Home Phone | | + + + | Preferred Language | Unknown | + + + | Marital Status | Single | + + + | Jain Affiliation | non-denomina | + + + [...] Team Providers + +------+ + | Care Stencil Inspector Name | Role | Phone | + [...] | | | [address] | [facility] [place] [address] | nausea, unspecified | | | | [address] [place], [place] | [phone] | vomiting type | | | | [address] | | (Primary Dx) | | | | [phone] | | | +--------+ + + + [...] care provider when you get home to [place]. Keep a journal of events and circumstances [...] illness. Therefore, it is important to [facility] for the warning signs listed below. The [...] hands frequently and well, and use alcohol-based extractor operator helper to avoid spreading the infection to others. [...] the eyes or skin Date Last Reviewed: 05/01/201519993382-5239 [employer]. [address] [place] [address]. All righ ts reserved. This information is [...] down) Recent medical care: No recent medical group home Medications Not on File Allergies: Opioids - [...] to follow up with a PCP in [facility] and we discussed the emergent signs and [...] with any questions . Patrick Canales MD [facility] ED ED Triage Notes - Shanae Hector RN - 08/10/2017 1:41 PM PSTPt presents for vomiting s reyn[place] this morning, smoked some cannabis, visiting from [facility], states she felt fine prior [...] Narrative | + + | | | {ujs8fatitfxxcpt1888izht2mnyfvos0582{info{title Notification}}curiey29407zqj | | wcq63492iwzoja47000ymyxdy17422ghhjiya951xgyrggv177wpzks0211ychah304ixnlv497iqyvu | | 883kcirgttz3684uvqbnuqa607pmafklcj136nzfijpaz851ylxhzmrtgx3u1k8kf30{fonttbl{f | | 1 SansSerif;}{f2 Times New | | Daniel;}}{colortbl;euh2pfyew8ownu4;ggn002vzkup827lsqe918;jhd577kirhh713qqdg425; | | piq002ruaes013eyag885;njg178pkpas919uwbz994;}{stylesheet{k30zdckr20 Text | | body;}}{*listtable{listlisttemplateid1{soqnsnqeiritbwanl22gmwrynv4rtanumyzkxhl6 | | levelfollow0{leveltext '83i6235 | | ?;}{levelnumbers;}f0c2p2wu69pglmgi-451qx300}{yhdblhopcuckiaidh95ptxizuq4iuae | | jpcfjtum5ikyegzoqkby8{leveltext '43k1984 | | ?;}{levelnumbers;}h0u7f3xe60eomqsr-902vh7485}{pldycasdlngvubcis81lebktpy0okc | | vfqmjwiyq6jaoioatuflw3{leveltext '98d2779 | | ?;}{levelnumbers;}y7p3k4ov36evohss-455tw0400}{vdruewecsuvnqggyw59bjhbsid1gsb | | qobrixjlk4bvksirolole1{leveltext '11k6423 | | ?;}{levelnumbers;}n4e9g9xb98gprelb-604dc8188}{rcwdifdthnhedrkin78wobdrcq3dfq | | dpevtuqns2msgwrxyhohd6{leveltext '12v4571 | | ?;}{levelnumbers;}v6w0c8ck40suljxx-494hv9096}{kuklciiggistuezie79adxfbob5jil | | lccxoftcx8aibzcozyjpc0{leveltext '01u6193 | | ?;}{levelnumbers;}v6s4v9vo01hlimxr-172an8279}{xzbxwlvssepcjdazt69qyjzyxq3qlv | | wbbiuqkmp2iiphhaxtufa5{leveltext '19b4118 | | ?;}{levelnumbers;}e6t3z8ma33vrjsfp-682fh8750}{rpjzngguflybislea71xjayozq8whk | | rmexvbjmn4ptdyygenwyl1{leveltext '13j0134 | | ?;}{levelnumbers;}n7n3t6yy91stowpd-144nz7039}{cqrrsttkladfvtgub61bljpzps5dnj | | btabsozox5vhtadnowvyq9{leveltext '75t6675 | | ?;}{levelnumbers;}q7a4l2ol44tkadjw-452vk8486}listid1}{listlisttemplateid2{li | | qvbbpjjnayxtwuo27ofjitxr3gdmhpozadncc0xsmjmgxtpsf3{leveltext '14y3273 | | ?;}{levelnumbers;}u6p5o8zk11iaccse-006wt546}{falmbhicqprpmqtwb47xmyhvna7taye | | otgqimdw5ysvqdxnsrxo0{leveltext '39a5898 | | ?;}{levelnumbers;}e6h0l9pi03miwkwm-002ga3186}{qxksabvkxmgmkgknk58pimigdn1rdz | | qgevonxsf2glajytauahq0{leveltext '52z7768 | | ?;}{levelnumbers;}i1p8n9aj24ijyily-522jg5820}{intfofxqiwxnzpxnv51tjxxnuk0mlh | | zdhbipbkx9fhlydggbedb2{leveltext '07w1315 | | ?;}{levelnumbers;}b0t8o2ux08evrmuw-572ks3117}{dnafvmelcbfuupbyp06pbvnpah5yzw | | emftynyrk2uqxmlktlrdd9{leveltext '69l5444 | | ?;}{levelnumbers;}y6y2e7ul65xtwfhc-348pv0538}{qfjajtgoevewitmzm11tokpcza3tth | | aermadicw5kyyqcxqjwzl4{leveltext '25r8766 | | ?;}{levelnumbers;}k0c5c1dr37ykhkuk-251sh3498}{vqletfecpdjxaywtk39adksvuo9wcz | | guovmygzp7vrzcmzszovu6{leveltext '20j5428 | | ?;}{levelnumbers;}n9n9q0zy49zkeqxi-018zr3376}{nodhcksgrrmzpmzea08hlftoby7api | | deouopuxl8kohgskgkssp4{leveltext '79l7595 | | ?;}{levelnumbers;}d3d1h7jb37eqswfe-132uo1021}{hrcyrsbcyqlbtuwuf00mxrpxgw6vct | | vrifleodf5tyloezehxew0{leveltext '17j6060 | | ?;}{levelnumbers;}h8r7h4bv14tyedhs-855ys3252}listid2}{listlisttemplateid3{li | | qotipcyguujxlrq29qeuqhxu5mcdwsgukpsqs6ouibdxrimhn7{leveltext '88o6343 | | ?;}{levelnumbers;}x6l7z0fl97jfwztu-293nn540}{lajruhknqueqgdyss45bzlsibc5qmak | | jrtwobyn0hdfuarswklk1{leveltext '83v6659 | | ?;}{levelnumbers;}m6f3d2zn50jbyuhy-880nu4714}{pbtppkowafmcpfnnw35mzezenv1xty | | eminicddu5gwdozoiubmv9{leveltext '16t1515 | | ?;}{levelnumbers;}a5c3s5ly26btabak-306na0866}{vpjmsnwlnxmezfxop65mygfjvq3tix | | conqgudtm1sivttzjqjgq3{leveltext '53p6312 | | ?;}{levelnumbers;}i6i9c6xy80gtgagm-696ce8701}{oyxxppruzmddmlwfk41njexcnv0yak | | sqgomlmkw0jukwfyfzdmv6{leveltext '03v9121 | | ?;}{levelnumbers;}u4n6l3rd41cwlknu-065ds7647}{lavtmygwnoczajylg64uvltfyk3quy | | hhsbfjfgp6liyzxfrrppc8{leveltext '79s3114 | | ?;}{levelnumbers;}r3g3k4ij63tgqgnr-273pk0438}{toiioqnmtnhbqgnqo37lwpveqk4ual | | wezfogofy6fyuwudeavjo9{leveltext '79m5385 | | ?;}{levelnumbers;}p5b2y7ql41pwqzuj-436kn1143}{etcrvinpipxbhmsfn32boriuuk0bsi | | eyhvmqngy3vjsdrrrdely4{leveltext '45y0220 | | ?;}{levelnumbers;}d1d1k4nq10wpzmto-728vf9439}{fphojxyomypzktopg77bqbicqe6mwi | | pynwqiptu2ffdigirgmxc7{leveltext '44g4130 | | ?;}{levelnumbers;}k2l9q2ap99mmeikh-120qb2163}listid3}{listlisttemplateid4{li | | cddzraarkwsenoi67lknvmqs2ozndzcwquwml0jgjbwyzsyxn2{leveltext '76l7901 | | ?;}{levelnumbers;}t4w0k6xe43fcckgl-203cf639}{udbtnvyhmqrgrvypi95htkquzz9juvc | | etjoeoas3hgpalyjmkgj3{leveltext '34k2185 | | ?;}{levelnumbers;}a0n1v7yu56gzqvsv-630hp8544}{gworyrgfsstljgqbv76blhsjgq5lpr | | rkczyucpb4ekfjxkxxqcw2{leveltext '76w4025 | | ?;}{levelnumbers;}y5n4h2pu42nkgctc-161jp5657}{gcibvkedqxoqecsqx08wclfnyt8avp | | gdakztabl2npzytxdefgl4{leveltext '75w1838 | | ?;}{levelnumbers;}f6v4m5hv12musmhx-394vk4684}{cterykkmcbrvevcic23fxgdefz9trk | | taubaojqv6mzktyefhcyv4{leveltext '47a9087 | | ?;}{levelnumbers;}n8i3k7vg58dmtfsk-279fo1241}{vwexilwzcvibiaikn42mboqasj7jji | | psbqnlllr4wwlyufcecec2{leveltext '76r9028 | | ?;}{levelnumbers;}k0x0a7es61ycxeif-645bb2933}{edgjyflgwzrbrrsqm84whlevat7gvm | | ywtxggghy9wrkwfcdqhaa4{leveltext '02p1847 | | ?;}{levelnumbers;}p0t7u2gv40narihw-147on7820}{zzzyoxqcxosnvzzui96gqocllm8wvf | | ihmtjfcxr0onjswdpqgbm7{leveltext '10z4434 | | ?;}{levelnumbers;}c2m4j6ii33tyabrd-737po1328}{waxwibynidwlyxpho09ppefhdk3opb | | nhkasaftj4bmeoklhuclr6{leveltext '58x3491 | | ?;}{levelnumbers;}t0f9u4xo37wfnbpx-982rt3554}listid4}{listlisttemplateid5{li | | wxdciadvhmcdrst14sqgfllu5qrhmrzyoquuc7ozmgbjjphbt5{leveltext '90o5750 | | ?;}{levelnumbers;}v5m2w5cd21yxrwst-789ck505}{xkwhqlntfjqwrmoln46hzbymvk0cgsh | | quntohac8vkeqhduftov3{leveltext '47b9641 | | ?;}{levelnumbers;}s1e5s5wg21eeqzdx-885wz5173}{bfwfvocmfxmijhciu20qsklali3zsi | | afyemlzbm9ykhjtvkbslk6{leveltext '35o5027 | | ?;}{levelnumbers;}c7o6m3aa52ficvmh-559mi1585}{hbosluoxdafgejshx40tvgpmrd2jnc | | laomfkqhc8umsokoykkie3{leveltext '73j8560 | | ?;}{levelnumbers;}b3z1b6og51opeeqy-083ed4414}{ewvkwjaywuohfmlfg69omlsegq0xnc | | qzgbumcfa7amwmvtdbckk0{leveltext '38l4930 | | ?;}{levelnumbers;}f6q2k5tp23rjhgpq-071vz9538}{nayhhdbehmugomglk75irqeilh7jfk | | tgpuyclaw1bjirircnwuc7{leveltext '61z3967 | | ?;}{levelnumbers;}g3k1i6tt53uyfozn-056el6690}{ftrkhqdkfgjkgzjmb46ylgnrxn5bwp | | iwvnogjuy9gqngchgihyf4{leveltext '21i4678 | | ?;}{levelnumbers;}r3m5s7sz36rcpkwx-447sb4359}{uohwbsemmwblgypem81jgirose8xid | | vuritvkwx7ophtobpctjh7{leveltext '18v9205 | | ?;}{levelnumbers;}w1c1b1hg08jizwaz-201tm4698}{jrrkeuqdrkwlbklof35vrarkty5may | | awxjkfuso5rthimizabuk6{leveltext '68f1874 | | ?;}{levelnumbers;}d2k5d3ya24esjnnr-192hv5921}listid5}{listlisttemplateid6{li | | sakehzpxbfnysfa08boefsqc5ewsbewvzooda2yhltxlruvir6{leveltext '14h1328 | | ?;}{levelnumbers;}z9c4o2xr04ctcvre-072ve045}{rcuqlawuyzgclfdnh69pjqmcjf5ngox | | jlycsgvo2dcojhyjmrka0{leveltext '92s8737 | | ?;}{levelnumbers;}z1b1b7uc22mpospe-355rk7300}{cawpicxgsdebnpohc62mfsbcna2mii | | xbjyiswnp8sbbjopdzrkc6{leveltext '50x9232 | | ?;}{levelnumbers;}z5k5y8yh58tycskf-116lk8129}{ehbnuyqhhrogiccyf66lvpxqmo3pcs | | ttjenalud7srbhflyurbj8{leveltext '34u7254 | | ?;}{levelnumbers;}q4c8g0cx71lagrsy-199rj7960}{epwwklglroydueupb46zgdopnv0vzf | | hwmzvphnr6kroiugjhppu2{leveltext '66r4709 | | ?;}{levelnumbers;}s7r8i7lj72qjcwmq-870km6883}{opwjhfdivocnqhiff09kzyzyrn8rmd | | jcaxtcunf6chfzlxaudfh5{leveltext '75w7717 | | ?;}{levelnumbers;}h7n6m9du00bdivvx-833jk5611}{ciwwkisuzqigtixjl85rngbjko9hpi | | ixexrkfss2ngdtvszzlrl6{leveltext '35y0509 | | ?;}{levelnumbers;}z4e5b5nq64jmwxax-486uu7161}{oqbcothxgteidecui59jxhhcrb8clv | | crgfcghtv8rofljscjrji4{leveltext '12f7684 | | ?;}{levelnumbers;}k5r6f0sq88nbcwje-162yw8850}{nrvxlnenptaihleqj64ussyqwh3zmz | | doqezsjnz2bznswfxmgsz7{leveltext '03o4995 | | ?;}{levelnumbers;}g4k8x4aw02ftvqxt-458sx4796}listid6}{listlisttemplateid7{li | | xvozfnrnksjaptn03otprosg7wnidnqfjdvym3zurdzmcccgd4{leveltext '15h8471 | | ?;}{levelnumbers;}e2c1o6ee18bfoxlj-788wg754}{bchtrqsvwfulqqnhe19vvbziaj4lnki | | ojpvxdzs5qvvkrhrvekf1{leveltext '80i8446 | | ?;}{levelnumbers;}f9u1u7sv09xgpiqd-150qc7277}{yexrcbulbsziprslo81tfsdkpt7xgb | | mzsjmxtck0oqamberimra1{leveltext '65z9563 | | ?;}{levelnumbers;}n0f5g2ee06leqdht-535oz5298}{nyopaqgprwfnrmeix41ulhzymv5ups | | chxnvgkmj8asjukgryrrk9{leveltext '70l6733 | | ?;}{levelnumbers;}i0w8p5du09qgigwh-462qr0670}{pmiykrbkoctykvhok92jztdwxc5qmp | | snjkjrsul2qkfiytqylid1{leveltext '63s8140 | | ?;}{levelnumbers;}e0x0j0by95sdzldy-373ru7021}{otnqukegadvnuzhmi59ccrdogf8xgk | | tfokuarea4mcrzhwbogkb2{leveltext '74j0269 | | ?;}{levelnumbers;}y5m0c6sz02wwvxoy-871ix2151}{wiltjipseutnexggy05bozqeiu4ggs | | qzcniavgb3mjubccpctqf2{leveltext '21x1523 | | ?;}{levelnumbers;}s4j4d0tx11dglbew-778zq8049}{bbrncgngydhmcoslz77fzziwzz1eeq | | vdofxxolj9fmuwpxwipbi3{leveltext '98s8610 | | ?;}{levelnumbers;}c4d9w9pp92rxothb-330tk6879}{icnzspyexhnuwbbyy64icogzep6ikg | | pplfpebqd6gbwluovmgtv4{leveltext '32e1271 | | ?;}{levelnumbers;}q1b9v0lz14tpxrxo-673et0925}listid7}{listlisttemplateid8{li | | lofvogugyiqjruj46clzqfha3cupkxinlvhod9cvhlmwiuptw0{leveltext '15g2759 | | ?;}{levelnumbers;}e4q0s1qs42freorl-605br902}{cgbffzthehmarwfyf87opejpwn6lmzk | | wjzojlmi6wdzfcnmmdct8{leveltext '43c6115 | | ?;}{levelnumbers;}e3v3k1pl27jsaikh-032ap1637}{lpwqpnwehznxggqdb49ravmbvv6fir | | tcjpfdcdh4tvkdddfpmgd8{leveltext '78c6826 | | ?;}{levelnumbers;}d6a5q0ib02lnpsgx-141wa9645}{cmxfznpcuimdjstdi55kbyuerf9lws | | eyoiyzoyr1warfzshbnwr1{leveltext '54i9475 | | ?;}{levelnumbers;}d1n0m3bf82jxlpsx-236ao1942}{krcpypdxgsuxqibab31fivwlbj4haw | | hlplykrhr6gjzgxpfgyaz9{leveltext '34k4452 | | ?;}{levelnumbers;}y0m4e9jt42wvxule-737bx2340}{znrfquiyohcqkxdll62bfbaydc9pln | | uerpgyusf8izgizqsjvyk1{leveltext '19q0059 | | ?;}{levelnumbers;}r7n0x8zm23jwrkym-180vw0323}{bauiftqivkribtzea25vqgirvx8hvh | | moykwafgr5xthclkfuwvx5{leveltext '28z2845 | | ?;}{levelnumbers;}u8z4k7kd46vrlvtj-981hl5060}{jtndettguyfwmuypf48nysknwq5vvb | | sjshzahef1rexckgsnytz4{leveltext '51s1530 | | ?;}{levelnumbers;}m1z9f6ir98jghnla-150je3141}{zouqwpslkxykwhllo60taieuvv2fht | | oerjsumdf2wylhjzjnard9{leveltext '59n0464 | | ?;}{levelnumbers;}a6f7v6bk30vkqmlg-135vi6206}listid8}{listlisttemplateid9{li | | rwielnhhgbhvjas75xgwzhza8hacvjjixlygq3wrwcehrfujd9{leveltext '10j5448 | | ?;}{levelnumbers;}f8i0t1hx47nhlpdq-295bs251}{jhvqvfhtuauznjrqi13ibkwkmx2clbl | | jdivgtfi0gitatqmyetw4{leveltext '68q5952 | | ?;}{levelnumbers;}p6c0y9ye43zvvwex-946fk1467}{xlivocomljlryrtfy78joeugge5rtw | | gtcqaqlau2ijpuymnonij6{leveltext '58h8355 | | ?;}{levelnumbers;}g1l8k7pi18chadro-827bx1751}{fipdckomquncbexrl94khpkazh9olz | | sseivjlhu1biezucueure0{leveltext '50d5479 | | ?;}{levelnumbers;}f5t9b2fo29xrydjl-940ga2322}{sjrwtpynzjztnlebf64pgcpunw4cem | | axjmtgkkp2ntudsquckmg0{leveltext '68f6607 | | ?;}{levelnumbers;}n2b9b9vn11yiaahz-035mk5345}{wpkdmwoaifavetqek48cmuqkrx1cwo | | lryrazrmu3kdaiumypqcj1{leveltext '07n0377 | | ?;}{levelnumbers;}b5o6q7ms59ewavtf-159qn4075}{uqxcseuhggskoebmf12xkmukzf3yhu | | juitjrhxc6csdmehjjjez7{leveltext '36b0816 | | ?;}{levelnumbers;}f9b1p1am75tlnmop-948pk5356}{ufvdotsirukhcwwfd80mmunrpp7cfw | | ahvwrwqos5ooemfhnzuvs0{leveltext '81e6650 | | ?;}{levelnumbers;}j0h3z2oq30qdqzua-475tr5314}{drtepwgyxjrusbqbh96vzfsrdv5lct | | dayouopyc5wkwsceilgwa0{leveltext '15h6362 | | ?;}{levelnumbers;}e8u4c3hm42zqkzop-858sv7354}listid9}{xbpvbptgozzgtwvcnh79{l | | fgelwplwjefmbcjq70pquefyi5kstmewhwwxhy6gllnwyqtueu5{leveltext '42e2203 | | ?;}{levelnumbers;}p6q4o0sk81weoewc-853hb827}{klhpsypwimouuxlgs42eqrbvsw3peku | | eigdujck2ixrgzfnienh0{leveltext '26x9469 | | ?;}{levelnumbers;}b2k6x7cq32mwvgal-894px7836}{oqdqnwhzbzuzssmiw48dkielkl8njy | | rxtsuidna6jpbhbpiinqh7{leveltext '56v2935 | | ?;}{levelnumbers;}i3l3r9oq25pzaauh-474dx5134}{rgfsciaygybpitkgi76nlglyap4amp | | ddiotlzhg3ycedhfnmiim2{leveltext '96b7528 | | ?;}{levelnumbers;}p1z6t9aa66vzbfdv-770zq2870}{afisfrefityfqbhjz50nxuvhuy0idn | | wmjfpihuv5olnrwboiwpl4{leveltext '11z4774 | | ?;}{levelnumbers;}c6i3t9km30mclbsv-930py4312}{sestjgualwqvgfles11gdvafef2cdf | | urmyukdjp4dehooxjdcyy0{leveltext '61c2852 | | ?;}{levelnumbers;}r2a2t8de26tbnogi-239na0840}{oddsaupofjrijxnmf66sedtgot7fww | | qbgzcrfum1ampjxhqnbvf1{leveltext '71r7376 | | ?;}{levelnumbers;}w4m8h4xj08anmrwz-204fx4648}{thjgsqtlzxwdzfcap83xniweaz2ymy | | htieplhun5fdsibxndpym9{leveltext '56i5079 | | ?;}{levelnumbers;}e6o7x2cy01gilwgu-222yx4705}{kolmeliobglovqazd55musapxz3nud | | qjxpqzata4ifpxamkelbp0{leveltext '87u0086 | | ?;}{levelnumbers;}z4v1n6ru02aibsep-321gl6618}wryfol33}{heegzhixmekmjlkgjd72{ | | eixocxvqqpvrdxtvr00sqpggkh7mlzgvcdjdkkb1aowxhuatmtq0{leveltext '50v4628 | | ?;}{levelnumbers;}g4v2c1yt94rrfixo-495eb765}{acescrhmmwadthpnq32obyqtwv9rwah | | ekkxmoqd2rikprwzzbvn3{leveltext '40b5365 | | ?;}{levelnumbers;}t7w5g4pj52wczwso-412iz9641}{nwtpkkdoapqzkveex44emnwkza8bxl | | fgfsggdhu4nukvruvytvx3{leveltext '72y9772 | | ?;}{levelnumbers;}k5v6b2bg24nczhqi-382pw7439}{axkpmmzblrowycvru62iqelrnm5quk | | fowwozann6gvkpltrgwss7{leveltext '91c8074 | | ?;}{levelnumbers;}z2x5h5hr12ykblie-646gc2970}{dzhfabegxovbpbwbb96omiljek3tmg | | jpalilrgh0xrnleznfzts1{leveltext '31e6801 | | ?;}{levelnumbers;}i0k1e3aa89wjehun-414ty2057}{bcfilhdivbvbnrubu01kcfjmtc3mys | | ifgjuwdhj9rwxvobvflrk6{leveltext '77b6574 | | ?;}{levelnumbers;}b7t5l5lr89uyaapb-183pw8740}{mggczkmxvnwswvuug03xpcwpup2ldu | | pyajgxmtj7yhpzxdpfoog7{leveltext '35g3615 | | ?;}{levelnumbers;}c3d3j3hc94iuwdhv-270go1975}{pjoqokusswpfhfxpn23pmjurgd4tqj | | ccrqskrqk0upyslwjfufk5{leveltext '94a5208 | | ?;}{levelnumbers;}f0z7b3ix09akkjkv-102tv9525}{yokpzzwkdxztwhvcm69zjkpolr4bjc | | oidevinaz1btwsueighnf3{leveltext '87s3477 | | ?;}{levelnumbers;}l3d7f8lz35vuhrkt-129tz8753}aicjnx67}}{listoverridetable{lis | | oqtwboszhbxkugm0llibhtfyqfrnfkdcr9sq1}{nyqvkqxuhcadyavjbi5ikauxfdvxnihhshos5sw6}{ | | zcitvthnpiewjfsawc2etfnjnljudrcqcehz6cs2}{kuhdguefliaqyltbtz4qoumjeyertxgbyjdy4y | | s4}{rcjclephnrkhdiofyf8irexexncxpezeywpv1yp6}{qvhoxroswkzishcnjc1cepopjweckybxrvf | | t0ls6}{nojcawedjnpuovbhws4kbeiijmaoaihnynyj4hx5}{veidplnmkfwspqhjak7xvwkrlcsdhel | | icsiq2vi4}{rmtoqovggngvitwtpm7kacsuxxflslhsuiyg7fv4}{ilpzpzcoquyvzqdctx52vdwmvyg | | qgqmxjrhrt5wg39}{fyrriokzyvjgxmrdso17rqrkjgmepsbacquns5yv11}}r9o9v2nr82d1h9m | | 5dc87l0z1m6yp89{widctlpardbch{auwewiclgxuzec0ko7fm80xd694iw6ty7yj0{wid | | ctlpardbchqccf1 QQMLn419?NYVFUMLBHBNUp300?08/10/2017 13:65e064?BRISEIDA, | | UZRMZQOAd420?MRN: | | [id number]}t9z0v6fj71zbi}b6x0j8bs72{niamagaslnqlxuz836gl9sm9ge2{widc | | tlpardbchcf1 This patient has registered at the [facility] | | par}y6i5j3if12baj}f2q6x2gt46{wgmwyxwfautizo1dedj57qz411rc2wz4ma7{wi | | dctlpardbchcf1 Criteria metpar}p8q5n2os73{pardpar}e2o0v8df05{pardplain | | f9j5h9pb26vfygypdlfci{*tptrax2urcjunaz1ncftpcuto4rzehwod8}wq7jutbsgy0adkkl | | efbg4d7z5dm33rnaz{nbiiojsazyzuv2v5y3dw32pvala hichdbchloch {u8226 } | | }kxzl4pb7 bd581fj0tho784ijy0vu-783{rtlch ltrchloch cf1 | | Guidelines}par}{pardplain | | x3m0e6ry03ernaqgtbktt{*cgppny3wlcbzyxa3gynmilutg4oyhhgvf1}os2ttogkmj8oxklg | | pxub1t8u9ko75mmqx{sokwbpnmiwdtl4o8s4yb92venha hichdbchloch {u8226 } | | }qvmr8gh5 by455vc1cit901zdk3df-638{rtlch ltrchloch cf1 Frequency | | Patient}par}par}z6e5z0gf08{zbvwfiqkqubvwn0pueq88ka939kn4jf2dy0{widctlpa | | [facility]r4x6h5hv75mv6 Last | | Updated: 06/11/17 6:10 | | PM {par}zo1cj106bo6ld6{widctlpardbchpar}z1b5t7mz36s4fikx10mp975px1 | | li0ri0{widctlpardbchcf1 Care | | Coordination:par}h6m4o7qv27{nzdkkwwyytfwlfj489fl7tx0uj0{azbptqqdlvfehhn5k | | 4ar6cs10 NOTIFY CASE MANAGEMENT TO QBGpk9c2s9g8ef16 IF HERE.u160? | | [phone].par}h4t7l0hl62tx439yv9qw0ip5{widctlpardbchcf1 ENCOURAGE PATIENT | | TO USE PCP OR CLINIC FOR NON-EMERGENT PROBLEMS.u160? EDUCATE ON | | UTILIZATION.par}o8c6b1ry20ly824pm5xn5wx4{widctlpardbchcf1 PLAN IS TO HAVE | | [facility] NURSE/CHW START WORKING WITH | | PATIENT.u160?par}e6a0o2rf21at702va3hv4cj8{widctlpardbcf1 GET CURRENT | | ADDRESS AND WORKING PHONE NUMBER IF COMES IN TO | | ED.}par}y2b2l6my73oy963hj5mo3lu3{widctlpardbchcf1 These are guidelines and | | the provider should exercise clinical judgment when providing | | care.par}z0d5s1zn18dsc}k3m3q8gu67{widctlpardbchpar}d1e1k5wl47{widctlpa | | ffcjbc4xfju31tk227zl5vk7ns7{widctlpardbchcf1 Care | | Providerspar}o2a0c0bg16{{nxnhjeujuoztnvneemonpkiqwgmvfjovax6izxmnmnlgyycggh | | imwhz1hprwqcgrpsuaiwocfymc8nxhynrwbelykfmnekgbt5ozlfga14guuxxb41obbure12jtpvxs | | 48kgtazuz3oxaugrt1cxguktj6fvjmpfj8gqapvfpzgjjquncg3039lwxczjzfilaahiujylurgzba | | tfwdx9obmpjstugyigcvckoywe2qbvinlvnsbwkxzqxiqkm8vaveurvwurakdhwrivkg2tvhpon69 | | uxidms65ijwddc67sfzeiz08ugrldey9knmzcyf5uahfpqx6nqaotwd9euwjzutmpxedzkyn5028tus | | xdhcmwgfvbsaiuudqfueowcefy1dwgzrglhibvfbtvvhzgl8lykjvinfzlhnlfeyuomq2jxqgznge | | mirohyhlxucb0vmywtn68oughdt14btwnuk65styceh13haruikp3nzgvpks2zijuxnw2umsdfzu5g | | osinwyfmyzujrmw5612bniimnwhsjxlcuovvlnfhiurcowci9ltetoyidonamfwcqapab0gmnbrosv | | rcrbcjhkthla8zkyxymqnbfaaicxjrzxk5nvvzbl83prahgw80efhchv25favdav32xopdiwk8htzl | | nxz9atgdhvt7rsiuyde0utfnvxdlsyjcdyan47988hjersvkghbofwsxzxbssohsjipbgi1ygfqpqg | | xdbezbjxuytol1oxsloutnzzkeijtmljjy1pzndjrfqpqaxavwyseco4ozshcc68bdwosc11pyeowv | | 35wtsufc22ccuyrbq3bnrdzam8xgxcaod3aidhisi4nbltrrzgghvrrhzd64404i2fp1bd51gmvj | | intblqlcf1 Chhpmplppdsrzcsnhi1kh2il13ttombdzbtdkjk5 PRC | | Kdxcbwbjlcaixe2ld4bb31fznhaaskzczat7 | | Yufdqtmvedijaen1qk3rx65msytjoanuzqeq2 | | Xlvfhcnhadutw1bm4az88qxiwycqxccetx9 Service | | Otqvaarfbvgoroxiukpmdtywraipazstolaejkkwlvxhqzbwlbpecepfuast7wntqzbgavytram | | raqpqk3qmohapudcknxntqgnpgd5zxwrfhuvzmozwmfyjemq7sghron14apttze38wzekqs96mjnoc | | s13uhzhsey5vbqmzcy8lrfecvt3uucjlzm8jgwmfbofftebnrys1532hwstwxrqzxgmktkihbasofl | | nenqvf6bjojohqwrljzfnuksuou6tsclodhufnrlfgxoezpp8vrdiboxolartdvzaidnn4bgmanu94 | | hckrov94usyrpp29jdohdh99muubbpq7hhpkvbb8omnhdeb4yewlxsa5bwwrjkciftorujio2675fy | | foagfkmoghuukxzzjsvamdugvbk0bkarhvloatabghgofyel5cvaaqugsxwjunhrrtiof4bbifsih | | irkujpwextdkl2mqedno21zikdyy29cmffqs52sfhmje03nodobhc9pakofhv8rcldxlp4psdjyka4 | | rvrmcmfgibrcnpca2172xyvqmgtdsaroheeecplwzcwbkyuqq5iocqvdwqdwrusrcgboos5isykbfn | | lfjjhcyhbktru7zllqrtvdzdrkmpvgjoqk1jvztrb98jvxqxh73tjuosx35abuyri76wdyhbfr9mgi | | yhhn2ystbsfq6cxjifid0radkkvjlmdgidzyb70093sscwgxlwxgomjrtjlinubjbyizntr3ooofegu | | lxwhkgqnibivu9nmplgwbpydvymdvrqfbf4kzpllaeafyrpxisbkjgr7tzgdvk53ibilfj49nlbdb | | a70hgsqev65qhtyybj5bsrpixg4lukuief8xczerjr1oqgbwsgghqilxjwm28743v9t7n9wf76hr | | rdintblcf1 [facility]FXHYWspaxvzhmtd1d5j6bk88ungaguvaooo9 | | Primary | | Mbbdldtcviakipsobouphcjzyhwnovbuwnxceprncoqpuqozdv2u2g2zv08hwytsjemqwx7 | | Current | | tonzybppduilwaduqlburtjvgckkmltaevksizmawcbqipgfepkgmfd0dsnrsvetkzqlyfyycwz | | k4dbbtzdnhswwabbelubym0bmrhcoyefcqdlprpmeyb6ssecfn69fklttm63rpnajs67cdsczf76t | | nhzuuj8fqravjk7hwfezfl4mnofvrm5gibmdbhlqijgsbud4089yweqclrlyhoplafbpixydpykjlxs | | i8rlgxfbrerewsssyfpzly2kttdokfmpiiuptmtxocj8qlfjviyckclnnawpemes4madzzv37vftu | | lw76ignivw56gahqfm99khniwkx3zjsvmkp1wpshuuy1zknpnsq7weojjkfuracsudol4223jpvfjxd | | cwzoyiwpkwghqmryparcqm0aayakhnrdtfxhdsgufvo2zwajkffxnzjbddlnwbgl8nvrwmzadphwn | | hppjchqs8tvmigg58jqybpq15lydaso82zpadqn33yajzrsa8jtuhvlp4riorurt8wqxlhkh8gptfs | | phbwgingxqz4858eeoiynmrmwrmooyxcolmxegpcwlfu4syqmaichadtcwyiazxmh8empjskplyszg | | vugvwkhs8kedknhyrpeltjuxksefl6mphtca11fncvpf06bngjty52zpzvtu28qvpjlfb2pnwbvaj9 | | febodrd4bpnmqqp0zfrmhukqjugmyppv34015bzvwizionrqmaofchydaaqdfgkpxe8zhcvystwhpt | | wkcfjdwsu1eesavhieozgwjumdzxiu0kbrqdefhtmaqwkqntjjz7axgqeh29ldcztz59qsguhk38w | | ybqav40rnfhcxf4gsmiyxm9qcjsdnj8kindiux7rhypkedqxbxshuaf65601g7o4h2ym27xmrtct | | [employer] [place] SUZPYNURGpxbjbvrdio0p3g9wa39wqbtazpcfmv4 Primary | | Romxlkkzjvjtoqngpiedlgjodrshnnxe4p7p5sn96ltrbvrdgqzw0 (503) | | 413-0175dmjjjtuipf4z0h8pa58uxkjiwulvzn9 Current | | plaincellpardintblrowpard}}h0c7x8zt64kkp}f4n3s0uc65{oodpwjragueujn3r | | pei83yb334rb1qg3pi6{widctlpardbchcf1 E.D. Visit Count (12 | | mo.)par}r8j8f3hj28{{bkanaqgrcfgmbmtrcescwxqdypkprepmhk2dhsrsdtuexjgqtallzxv | | 2kpbcfhwpealokibeifsf1osfzchtxartlveigvhgm2kjcigb89yyhdhk77aiyghn04slizau83uj | | okmlu3tsbhgvi8cwvtuvh8coxcjdv2qrimetkpdyhkpmxr50274vlesztamzvqpwgatqqbejmcnnvqr | | d7ekxquunittmxfcivecza9ompzfcqzbqjjbkrtqwnq9jzbjzrjaxparkuckuzsr0ahbnwe24rxew | | st68zypjfw95kzgyyu78dqzhbwg1orxnhni5hdlorfm3dbwghqr8sovcuqgjswaowipx01789p7jq | | 5ae24djyuosssyaiqy7 Zbfxpopiqsdmgpluzr4su0hz09xeveknrjazajn0 | | Qhahljjfsypsgjhiorjccgchewemqagfnpogxxvtggavcxlfierrusuhyfijy8agjvkhjshaemba | | tjvkir0itybuhztnghkvoiaxyuf2uoskjnjdooonubhhjbvj7bdmxac63vjpobw56fjdsct89dsnv | | lq52gjbeuik1lkkvoqs3cciczkw5mtlpsmb8kfdktajtsszrzudx99336tharstlehwnlrtydqmnank | | dghwtzb5prehxaoscxblutgopujr0ipycilzfslmrfqraijul2uyinzjrogvuayvznlrrm7dspnjh | | 01tctshq98jwfoib01lwdfce90yqtotjb3sabnbmf8abhzpxg4eutuhvi5ovaqlsojunvqrvbp63848 | | j7a9l5nq27qncobilhjqe4 Legacy Vpdqslgcxpvncqyrb3l3y0wi90sjbqgwtchhwmi7 | | 5fhoypftiebwtjjyhifoxfnyutlcqlblxdhgbgrgfeahsxxvysngjorm7xhzfgvyjmeikqzlexf | | zb2fpgkebmbcothuooywwuj7kbrceenyuknycoybitdo5kfslps24klavye10khzhdu30eeiamh18 | | juzwqzp3bzlzzlp7agjubyz0tccqzzb3cyhpadayttaidtxd38599oyizbgbzmdxitpbsxixbfvuipr | | fbp6kfbkzxyeunrjetowvgnp4hyyegbnilqrmviaployc7uyfyjrxcigkivgjdlllk5undbjk46cq | | jmxz40ivpfmr58wapgia55eyutgoj8mvczwfv1zdnhmsl3nhuxlyb8djukqxaqepsfkizz35673f9v | | 6i9bd29wgzbdyqjemv1 [facility] | | Fsqrtmjifwwcjrpjig5d3b8wl91qkcmylzvrncss3 | | 5gketsuuasomkfzjzogqhyphjluxlzfdlwqidhqsbyglaoaayqohd28mkhiyp0fkblodnhxqcoo | | bscmicm4shvccjraeazhvfdcrwcd0uvbgxtfpsdtrjtbxabru7vxyeyk93mqfyfi21gwiudd21kjn | | vbr80innuqeu6nvtvtxn6gtiyssb8yiyqezm8ingjojvysynfbzcf66894suljeepnjzkmrnjvfrras | | qjqyl63ouuvri2wzwjdruapebcwncqzlyq3hkmkozjqglvrxmkzipyc2umgyatfimuvxrrcxfqwa8 | | vhuomk44bejwfh78mukmsj75rpwgsd19oizezch9nzcmohe0nhsggao8qyztteo8kvuqvlbumtndkg | | yc93385c1op1ec33snyqrppaedw8 Zvssucxuwknwwgi3wq0gm21kutcpnvepgfpb9 | | 88kcmaqmihliplvjhplhwvxkr7df1exvuxynixtqdyqlvrxyzvpkuqvobobtnhc0bonaliqnua | | nxjfqiryyl8fzdlvatmwzvbvopbmdvv0jojfikkymctdlyxuqlyj0cblwrr96mqbswl47dqvbkv97 | | xavfvp11phzymio7rfwujam1ingwckp0sagqtvx5pxpatnh9udrfiyrslm8dccox19224u4z8v5bg | | 40nxjlwbycroc0yhobaaz4 Note: Visits indicate total known visits. | | uuxygoy2nqqeyocmdndogyngkocgigkle}}q1u3n8zd36eew}p2o1h1az84{widctlpard | | oqtg4dsmz74ht255dw5bk4tb7{widctlpardbchcf1 Recent Emergency Department Visit | | | | Summarypar}z4f7q1rz88{widctlpardbch{{ogrhhtywijirixmbcwraeqximblxlmxhiz9kkr | | vyxllmvjjlzgdhvpm2jhimwtpxmlhfsdquzwcc9unvbkilgufvzszwbsqrr7xeaiar72cmkoxh53h | | egvia23hvtuay30cpyrswr2vbdddxt8gaxcklq1wfqosjp7xwgwtpfrquiwecvi9941kpqfukvddaok | | ilvsffztpecskkeng3igzxnttczxabhckcfgld5cqprkubwbirrrswjvztf6bkuptccdiismqldpr | | cvr9ankpcp41spxico20uawelm66hsjuio90gcvuuas1xbjjhvj5rglckaq2ekqokmx1euuueajkugw | | wvzhz7677xrnfnpgncugghzirspwlpdxdeasxj7shtrqpvbzjdkrxygfbpg1wrqbttlvcgecjzhme | | jre7lvqransayknjplajbadk4dhqzyh43jktrea88ugrjur19ovsyai86qoedxat9fdhgnkd2neqzc | | hl9oehhdhq5jdqhsdcjfsalxkid4750tberuafjixuyouyssxorhakhuvkth4iwhkqyexmylawoobz | | ndz8orywuohymrlnahwcuihb9ggmlmdfyudxjjpznvgdz4ywmlen31balced43kwhjlu96tacbux22 | | ulgkrqp5icxvrwh2btcpkjc4vwnzhib1oyszfhrbecaiqwdz2130dhjwsoqagpqbnyhzwlfacrghit | | kks5yqvqcgsusdrtlidinzyb6jqjksnvxdjttjscovlvr5xvssmxbqiqqwfjxibyfr5yjyxlu47yk | | fztu63xiwsye10rhrbck26uzkdhee4cytiaia9ygurcqa9ucjsbaf3bkrgyiyrteskcjex9045wzvqr | | bnooycejeejeajlolclnutuy8eknzjnnexfkofbohyewf6zldoyhpskltvvmtxlrsc6veqqhkipip | | uufjdlzjmq2qufvuk76kzqkgo31cglism20lmjcba08lzpyslt8lzteraf4izsffwg9gzycpkn7cjg | | qdakdyuxtpked5784yelrffjaabocofkacfrgdpakaimun6dfgasoswmmameryehtyt6zihhkvcnlt | | kbtweqmvkp7fkhlchweffylakxhdjiy6lhczdu09kshsrj92rbteim26jklzrw61iidsxwt6muwdjp | | x2mheegtf8pkmabnz7brrpmjfxumyvhiju46984p1tu0mf36xussmdncxdrtn5 Admit | | Pqvoojajnocwlx1nd9te44hclqjaqepbfzb0 | | Xfbgshzfyivjsjqven2vw8gn72mmujglyebtmzs1 | | Bkmnnntqeuocgy1qn2px54trytsjdqbsqby5 | | Gaklwwxqwtuszdj2ut9rv24dycqyewhfdndz4 | | Yqcjsibakzpaex2jy1dj52yzwrnytpnhaij1 Major | | Unvqpoukjoctdr0vg9uw33omwybgrzsexwe0 Diagnoses or Chief | | Vpkfmcyeivimkdymlvqgpcqeiiaowbwarxphwdrfqrkiiuousmrrthiektfndztw3swjqmhxlnxx | | jhcqqwwux4nzuecblarimkynqippgu3zndyrlbydrvmthjkwrfo0xcbkxx99bygrbl85keksfj93s | | lkesf61qkszpbj5bqtuwah2mfwnnsz4jvvkjtc2vgdyflcpqxxnflvk8826uccbayyrajcqhkqfbtae | | cpwrtdkef7dmlqnaznfagcdianuhdm2mwjrlqarxbnczhzgzylz8wdefocsiwwlemsqyrpyc6dzjp | | fj28rceyfa85yhwmyt24matwtk53 | | mwkopeb1wlxhqlm4symsqzh4jmrbxpp8qomqgisxbkorzgke1413zpwqkoikospyduyswscfnygdnt | | ibb6yaeqgqkerlvmzqsphoiu6gisxadxymvrgahywfirf6optcaqztfcppxwccenwk4vcnwah63pl | | irrx69dxbwje94tpvdzz26thaodho8hffqtfw4kskkbre1rhntvvr1gjujvgeutcrdrwer0855xrphs | | ijydknggwmksvzwmkyrqaxoh6kjupfilmeuidebcdndkt3hqqchwjdvgazlnrqpqfs8hykbvgvpjz | | xvsibxvhuz2gdmriz98zmlbju59zxvyvs59mijlfo28miokynv0kowwwsc6qrutgmh5fsicyak8obb | | jkurrkpfbiexy0085mcacysgvsdwwhxtyhzvvluxbvkbqu8qzgfckftrbvuqjfbaifz5sfxdgggnix | | wcwrotahja0ythxvchpbnucujzgxzpt7fltvyj73fcpvih79zjfdfw44poxdno63bobddip0mpfark | | v9gzilwrm9hhuaman5snxulonjinqbkasy6911nwybtdkmwxjfirjjpopvldkrymbot9zcqvcqxtbs | | pvynplvmqh0ezqexmzcpgcbqksvtxqm5vcllgfbmogicamdttudo7azrfll55odzcgh53jgfain52 | | qdxrai50frjziii8nqdquai5mukdtkw4lxpccep8hsjlxpjybaxzgtqh3440uitkrwslrcegopntuej | | xozqnheuzr5wxwxzseufvcedzbkoobd6phfeochtpncepfwogpzl8grflgmgimrudnygtogtc3ayq | | reu85wwnyod11pomweo10tejwtx89hfhqkyq8hwixkav4eneoqul2wypvmfl5xzrubvgpnzitxvbv59 | | 634i0g9y2ls90duyhawujhvfvmoxromleoa0 Aug 10, | | 5444mftxbjrsvm4k9s2ic79mzwduhcbpkdpxncipebgja0 Legacy | | Oqzlrtdevmpqdqcxb4h5r7lr24tbhohyyjradpvngpvbyjyc5 | | Portl.spxwqgcoex7l2t6eg71mvsrbvumysqtsjbtgxnesd2 | | QNgpncqylkau1d7q4iu21akzsiwolsltwejvrdqemws6 Emergency | | myahdtrdhj0y4o3mc91brubtecsehjdfdyesghetv3 Emergency | | qmamisrhsa2g6s1up00logjoqdmkzqrxjdhfnkn{iqppcxyitjbie4xtr}qltsvertaltf1 | | q3g6ta97lznsvsmmkes{lbkjgbxljyizi7izvse | | x0m2f1an61tuyybakeexp{*oxsoao5capezayn0llqemvjcr4qoaodbv1}co4tezxobb6olhcx | | vxvm5o7f3ig03zhpo{hqnfmdfijoaeqaaofwpmv0v0c0u5af86syiii hichdbchloch | | {u8226 } }aqsw2fe1 gs172ze7mrq913asd8uj-173{rtlch ltrchloch cf1 Panic | | Attack }qlpar}qltsvertalt{ydbbsecrpoqlp2juwne | | y1d9n1vy99pbyuaiewoys{*vyjnwb1pighqbyp2ffbnbekxo0nbejjsj8}ry3hwsfapj4wburl | | iuuz5w7d7mq71nrkm{xppiymprlpsjcfpvquzbm6e1a8h6wc44rvxzy hichdbchloch | | {u8226 } }gjaz6in8 du237hh0zpe456ksn1xt-724{rtlch ltrchloch cf1 Nausea | | with vomiting, unspecified | | }qlpar}fandbsofodibuinaabghbtzdwyszvunwsbitjoiuanygmxmyhyatpxw8kpkmkjiouit | | jlgydorpw5umgzlezineeataeocqft0iuevmfgviwxfdeosfcug9jlwgpq11aawtlk52yicqza31l | | lqqhe10jzfbkvc1emgylce5ksnxwvp7vszqkyt1ygzvcbfkilmwflga5404gyccbfuozzalnlbgzqvy | | gtncgypnt3gpavjmenazybsuuscjke3rptouelrlrudrmbnxuai4dvztviyzxbccnqprfyfs5ktig | | tu22urvkcd06nanbdc57wyyutw11njrhbso2ygxswdd0qtfjjcb6sdaqhfw2wzaytwfjdodloiim494 | | 9ctcgbapvdnjaqtlhxculcyozjweeq6qpnxnvsfeszpybbguhxo6hxwveddcvfpztvrcjvko8qzzv | | xauzsotcuvugipgx2ublddu64nlgvup02jmrbpf92ugglji82tiybbbg7cmpstlx8fhoxafw2xyuht | | wi7qcfllzhucoxyjtjx4461dolsbnuxtdupicxqfmkkoapflywvq1penmbejagmpbhneteqar3anhl | | iymwmswlynyqiosn9tqiadkgvjslhfzomizhz2xmfmzj68zcoxtf23lirode71uyjkme73pnqwilr5 | | poyheob3ycwhjhw0qpqimsk0dvcaatduwqromohk3239qgyyiigytzjrrpvhmlxszrhbwcldj6plfl | | eaqzxcqviquxddip6hqxmpfnvfoxcqvllvmsy1glghontgsdnwbvebmgan7zjxxys94qlhuxp64yj | | rkid20xqqkvx59imxucsh0jluoals9sgiwrme2mlmsxdy2lbaplsbkqbchqzou8052ahylrsxxybtjn | | ggotkfklcrshdnbd5mlsbdelkpbiqxxrrzypx2thoxbfgunjqdpkccwaaj1kdsgtqxmfogpnpzcoa | | xc7hzdhps86pumchw52ijxcbd96oafftt52ncvdxez9widdghd8fupfmgc8ftpjekt4hybsxwshwpp | | eodtx0246wkwzqyzldemcpwrprzojbjjxrobcw1haeyrwxzwepuuioesfed7towcrycogebhfjlxxu | | sv9laainxzpinvfsgqknqyw4agikyj98qyyhmq03bihqtq39nqugec54xcznfmc0ksggtpk5vwerel | | f0biyrpma5uaytufifafhfeqtl79422f5g4a2tx06gickrtgelielksmwhqxbpm9 May 27, | | 6367cytuuhueur2q5s5rv07fqmisompnkqjdgagzoxvdm7 [facility] | | H.ukjyejjxxg0i2f6nx02iomicjvgvvviyshsupyesz5 | | Pendl.advfdknedx7j3h1mw92qwyhbzcmhgqondyrnaysrq1 | | ONogtbagfase3e6n1dc02wfqjrktvepowfklsfosqrq0 Emergency | | fqbytxzvla5s5y7nn29cehupibrcwhlcccsmagwol3 Emergency | | rfhitrgkbc5n0o3sv65nqjoamgkquzidqdcfbks{spsnitetvjfvm2fua}qltsvertaltf1 | | t0a7ez38heuygvaoyim{pkkoeoogwdpfj6qezgi | | f7f9e4bv69cccuhtrwckz{*nouinu8vbfsrcwy9idytkkyum2zzudmbz0}jg0dtxlvny6hcawi | | djqq5t6j6ey21fanm{pjhtvkcjcodmhdkpnmyre5e2h3c1go06ahsog hichdbchloch | | {u8226 } }njes6rw8 mi949uo2doc614hhx0or-035{rtlc ltrchloch cf1 Shortness | | of breath }qlpar}qltsvertalt{jfwoldexxmqzt4upihv | | e4r1b1db99hljgrshhxxp{*qyyrea6mxialzmc9grvveolgh2aldjiju0}wn2qtfjrkj6vicin | | epyr1k0c9bv24tzrj{jhsmbqmjyzbnxxscvosvl2d5z5p6tv47ozcdx hichdbchloch | | {u8226 } }azqn7gn8 fc731yu6xmd087qco8tx-783{rtlch ltrchloch 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 | | }qlpar}qltsvertalt{zplyskoafcqzl5byjof | | x9c0w6ax00pdrhehnnpwu{*tqnjcn9ezfqwhey7actnltoxa4sbkocbu4}zs6pyfwsib0xuhpm | | dwok3e3l1la17qaem{tsktnmgkzaoxsmntqrhdw7o3y5t1xg83ptuju hichdbchloch | | {u8226 } }flqp6ln4 gu216rb3zeu982omy9fv-099{rtlch ltrchloch | | cf1 Allergy status to other antibiotic agents status | | }qlpar}qltsvertalt{yfwhlesyjooza6xhcww | | o4f5w8dv90rkcekoosjgg{*prqkex5fgvkxevm5zkyeetegt9abcwjzq0}bh9pottahq5ixerd | | eoji0p8k7fs24ddjv{yhmspnbbifwrotulbrnak0a7b3z1ev34qpbxv hichdbchloch | | {u8226 } }bmry3yc9 py712fb9plw456wbj4xv-003{rtlch ltrchloch | | cf1 Allergy status to other drugs, medicaments and biological substances status | | }qlpar}qltsvertalt{nzwdmmfvtoqyz5sayrk | | v6k1p6no28pdhweyemcuv{*eyvnit9jzrrdsuh8acksnwkny7ukbcdgr1}so8caevvsj7edqte | | ragb3o5k4fn98hfcc{ipqwhcknlddpwumwfklyn2b7s5s1ag88savub hichdbchloch | | {u8226 } }vire2cu3 cj598xn1qyg808wgk5cf-556{rtlch ltrchloch cf1 Other | | terminal carman (current) drug therapy }qlpar}qltsvertalt{trdruroyakgyb3rbsbf | | j7s6g3le93pxkqdkrwzmw{*fhpeku7rhvkrxru2arfgfinca1bgrcoxo3}dr3txueabk8obnxh | | vojo8b7z2et61dfxi{vxfhdgmnpshpbltdqjoua9l8r9h8so07gzkjv hichdbchloch | | {u8226 } }enyp3zf0 sq483bq3zre483bwd3ah-023{rtlch ltrchloch | | cf1 Nicotine dependence, unspecified, uncomplicated | | }qlpar}qltsvertalt{zviqurvkmwqql6xcere | | n7u1f5fz96yhrhyudrkdj{*txqsgq2qqgszskz8mnsahsswe8mgeczvt5}ll4qdyecmh4zwtvv | | jshw3h8y3fk17ikdd{fvzlnfpgbmeiqdifgdaqj7o6a4z6jl66nboaa hichdbchloch | | {u8226 } }jngk1pk0 aw392jx5qpq067why4gr-486{rtlch ltrchloch | | cf1 Allergy status to narcotic agent status | | }qlpar}lmuficjvjlvlyklellpkobpblxsgvgqkyilmmwgovqjibrxdurgyham3llapiaoprmx | | klmxbsvcp3ntrfzhzxyrxjsquyrawy8ghvjkozanpsnkqlplyho2vofhlq51pkfycf88mjbxkr97a | | ktmll88hkirsek3qwmyedd4dfmzhlk6pvymsek7wfdlyhlphqnqcrxp4527ftoxcrcpioebiwqcwzao | | mwvnfybnw8gpptxxehcpseurppqbmc3mdfrbznyzlwkptgrvina4rfhpkeikrpxpxqgkufmv1nnqv | | iy27ylkgdo37vyvzzl53bdyvau47ksvgoen8ztuftnp4vbfhdoh6rpiczyw1eybfjyfvxfuooedc531 | | 7utvkkkfnqevmqvojwbilkioqzicnj6qcogloaaoimnogycmmrp0nzwjgupqusqdmsivehni1yjnf | | likfrlpbhrysmulw0veldnz66wafinz37iriapp23rnswuf24afvauef0xaamkdh5yotthze6xgyif | | kw1yqmyybegmhwdgfdm9736phpekxtnkhjeqbidhuqwopopifxll8vzmmeswmmlerdkdljpep2xlos | | pqcvnezbdhdypxwo6awtkpoasqeslpwaruroc5vzqyuh88aqklbl05wdwoii83kfvhfw21nnknmrl7 | | zplwsey4qthxbyu5soouebe1kbaosttwzspwrupd8504asurqwmkctqbbvhlfygbhgzumsuao0bpai | | eshighyiehpseilo5znkyzlijzilzfurpcqsk3hkcxjxuloqvjkyecrufk6ffxhew77bhqmfv51da | | wgyv89nuxjrw39fsoycjp5kssnrwm1erovhtf0kljznpv4owsstravozpmhygc8982ctibfksqahnav | | oqglqfdarokwfvlg4lxvqukorkkgeqfnfxmkn5uzfmdpaitjjfwosbrquf9ndebowmowolvgeirzo | | ys3zexiss40yfjcse10fupydp26lrhnbm08ghjyqwb0mbwqqfh4pkmdfhh4gbefpza1tozhnitzzlt | | fuhzl8058mzrhtfmjgvidkqkbspgdkjrgxzuur0ereokemgjcnncpujfres9xbmbzhhxygdnsbkkor | | fw5dbzzlorsxncesuhotywp7bpqaap45jqhddw59craxln67usuhnf34xpkveem1xnnkugu6lkqtep | | s4ljlrrpb6fuwipwtuooajiuuc86616c3i5i7cf19kgwbudklxnqnnwyeqvzxhz3 May 24, | | 5697xgceskxgaq0u4s8yo74jhsfaytupkqpdevnzxtbrm9 [facility] | | H.znufyqyusz1k1w9tf15wtttugehezhxqfuunujecc9 | | Pendl.nepfywptbd5e1s0zv28qvrezoedipioledqsduzqz7 | | CYfpruihzljm1z7p4ok24guublembszbbooscvqlqks3 Emergency | | zyiiezrdhu8n8o2ol98hiqndypllxhodschpajloo9 Emergency | | yehtwfzuej1t4v4up59khxathonajzxyqgikttx{shhiwkhocfzdv3tlt}qltsvertaltf1 | | j6w0pu27pmxhnnegbgy{bnoovziwpiylq6jfjoi | | u8r4g9gb27cbwvruhatpo{*xwslpb3ziqrslsq5udoqkxjxf9yczrqfj1}rd1jxjikmm7yfkxi | | htfv6z3l5jx16rkih{falyqkknmskadhuqnnwgr7u0k4t8jv68zxhig hichdbchloch | | {u8226 } }mxdj0gq5 av509sz1uog273bvj0md-342{rtlch ltrchloch cf1 Nausea | | with vomiting, unspecified }qlpar}qltsvertalt{tyxfjvgmvonvp5etdrt | | i9x0j0bj64nrgpljeerjw{*ieqqkp6bfofjabo1bxxotzlzd8oggmmix1}xh8ueowvac6pnsge | | xwmh5f4j3fs10foyw{zfnmmjmemagpwyyqjgzvb5i1i7p4vp89enjlf hichdbchloch | | {u8226 } }ykoq6zo9 rb162nz3dli703nft9ne-367{rtlch ltrchloch | | cf1 Anxiety disorder, unspecified }qlpar}qltsvertalt{dteffznuyoggz5kaoqw | | j2h5c5ka63sxxsgqgnmhc{*xdvrpx9pndztoet0dxvtasxio7gmcrohr6}ul8xoyuylw4usnqr | | gdza2q9r5cs02dzct{xwckstegaozkeiqoqjtyg5n8j3c0tu23aagzx hichdbchloch | | {u8226 } }ikuj3jr4 ab543pd7csp106atj2kw-171{rtlch ltrchloch cf1 Acute | | upper respiratory infection, unspecified }qlpar}qltsvertalt{vfxqolcvfynra5kpnsy | | w9x6x8no88vpmdorjhwgu{*xeblvb4ywjyqwaq3zwbkaasmw6sjykyyh6}jw2zoxklgy1tlohl | | xtvy9h0r3bl04penq{lkklaodovgvdiqpspgchx8h9y8v8dv27idqaa hichdbchloch | | {u8226 } }yndn3ni4 al636al9bdc133ike6kz-550{rtlch ltrchloch | | cf1 Allergy status to other drugs, medicaments and biological substances status | | }qlpar}qltsvertalt{wkyokholoneow9utpbz | | k0b0t7vk20oxtfofjhwuc{*pmrcsp1ynayljfo8lbnhixome3zrbultz9}jp6ovqhzqp3zuyfl | | xbxs1y5g4bs77mopx{qsjzdqeqopnfnxqjdnoee9h8d5h4rl66fsnbu hichdbchloch | | {u8226 } }edgy8vh4 bx264wo1fua254dwu0zo-634{rtlch ltrchloch | | cf1 Allergy status to narcotic agent status | | }qlpar}qltsvertalt{hdsvagienmygn9vtcou | | n6b8z3gt63qhrxnrrlwxr{*qrcpmj1jmbxgaye3lehvgyiil4auougxr1}kf6lhrpsge4tobyq | | gkoa7r5j3gj65ldgl{iuvozcewntrlhovodatal5w6z4h5sk74evcef hichdbchloch | | {u8226 } }pixf3st5 rb278ym9uvh454mgk3yb-221{rtlch ltrchloch | | cf1 Allergy status to other antibiotic agents status | | }qlpar}qltsvertalt{wntnxqatisqox1wboxv | | w8q4p9qu94gzwzceuxoni{*yvatpu1iitupeaa7jqiebpvqq7ygfwmrv6}ct1cjmcljd3vwojn | | oomr3j5o0hm43jula{dknqnsiazwgcinqfmoqzi9k7d9p0jl68yiszm hichdbchloch | | {u8226 } }lnjt7kp6 hl039yi8noa338xce8yg-219{rtlch ltrchloch | | cf1 Nicotine dependence, unspecified, uncomplicated | | }qlpar}ajkyqdjnpsknyqptotqoxhhbaxaengrdaimxnyepsegwdbntkbwbweo5hnritjzsxdq | | ftyibtcrc1gipuosmqzncprmrdkafb8mvyndlojoyqzllmidovk2ibuvld61emozor59xcgukj20k | | aipjo63qxehlyp4ldsugrq9tsrqxxe5opozxdr5yrsxbppobhdjdjka9112rlintdmoaaxgrxbsyhwb | | fxsslpcly9lemizfoolqasynauthrq3fhfkuonpksqyvtsnhfft9iqzzftbhwwqloiochwbu9jtti | | nt89qkikoa25uecdha14favlfa86dqwzvfd8ngxcpay4nxxmhhz9traamsl0ezdlzowxnllqklnw798 | | 5rniqtrxuzkbeohasynpjfifvcqhid2vhdqttpxkpaijpudfjmp6eihuqqmacykefhebtkom2npoa | | aqxzpgnnvknpzebl2zeruow84hzdycn57uuzeex79aewcgs10xomdseu8mcthjli4nqwzzey9gqofk | | iv6sxaahkcuzeyqiywl1150qmtqqyjudyeglwfaapocoouxhybgp0bvgzoudegurxzzrsrkyc6mkeg | | hwdszseuygyccohk7exclwruvgkxeywjqflel5womesk47livyvs06qknjri46ggfpiu55ebiwrri4 | | gnpxoau1qeesagx7cfcqhze9hnhwfkukiplhstcj6329mczmtecmfigbvjlctfhppidxnoonf4bgrb | | nqajgfokpuiytynp0aotocqycmiagfnqqsjug2adsprgtiifwtxvjwsxpk0aabimw90jyyqbj82xd | | hoku22yygvom41lhgrdff1kxgiaeh5kxmsjbb8ecgaqjo8abalihnngadspkew8478tkwkewcajvvvl | | krvbbvjhnnqrwcmw6awsqhdkdqroxumwkhyjb7crjadpwsinhfhkvnalha3lncyzzqnjkgnmspooe | | za7msvubp14ryvads99tlofvz08nqbhid06bemufsl5kxbgsys7neiaqeb8rjlkcks9uajeiiiijrq | | smdhx0276zozbxwhotmlowbpfzbgimhlpndupt6mjqsvqyfkmfdoagevgch6gfketuojuuuklfpifq | | cp1npmcrtzlyqxdxkzplhxd4nivzlb08wlzgas29hdiesb72sxlupz08xkskfue0vcvytkq0xcktze | | y1ostwnmf3ulyyeagdrzfvskhl20735z7v3j3ms85wxpoibmblwyfzenxujfvgs5 May [birth year], | | 0361ccbvhxsbyw5y2q0rd31yqrgzivfqgzdlfoxfqobrh3 [facility] | | H.prtydvcchq2q7j2fs77ezzbycsleemfuwgmetdeza6 | | Pendl.krgsfywbsu1x3n8vw31sjhqculrkiqrgpwlvjkntb4 | | NQssztmvgccm5h3w1gm67qxwrvdkysmsvojfhwkjdjp1 Emergency | | jteowkohii6g2a8na80nsxuelkxszuiyrwnmfydwp7 Emergency | | wiwvgreufu0k3c2hc46owtacatqcumiohqmmovn{fsymakvevsdqj8lqo}qltsvertaltf1 | | h4r3cc40wlwbbvyahmx{fpbdlltapjscu2vdowp | | l8w7s2dj44opymnjmahiy{*kpduev7sjrnahyb2wdwuennoz9atruqtp1}ny2ogdgabx5iohyp | | usjo4t7e1sn74okas{bshkvtophynwwntmatyjn8s8n0e5nr31gyyyl hichdbchloch | | {u8226 } }kokf4pn4 ib808yg4nyc088grd9wd-397{rtlch ltrchloch cf1 Cyclical | | vomiting, not intractable }qlpar}qltsvertalt{ncpglmxtmdvbu5vfhzq | | r0v4n0er72kwtclprbpyy{*cswxno6izndrtkv7rqcdiujgd4jzfazzc8}to4ajyczrd9wepyy | | oufq0a1h6tu93dwlv{uvbbndluavbisaacbddgh0y1b5q2yd46dhdcb hichdbchloch | | {u8226 } }cicx9jp4 mm849mw9vzn047jjo6hz-402{rtlch ltrchloch cf1 Nausea | | with vomiting, unspecified }qlpar}qltsvertalt{dttbvrmwsmecg8ihgvo | | z9a1u0xc24rpnszkkwyan{*fodptl3dxyzmuqr8pccjbrhsh6dzkplbr2}xq9xjyflrp3ixolj | | arjy6h7b3el24resd{teiynyoltrpujcnharbgj2o8f2q7zn56worsn hichdbchloch | | {u8226 } }ssdj5qa3 ex263yh5iov372qba8ad-281{rtlch ltrchloch | | cf1 Nicotine dependence, unspecified, uncomplicated | | }qlpar}qltsvertalt{uglwkflojsbks3abfrz | | w5e5j3zg68pbshuepcnqy{*borrgv3ogqotqcx2azvbhvmsx1rjseexg4}df9szuggqp1axcuh | | mall2w8z0os02kpfk{mlhhdbyarehfbdndifbku5u1r0k4dd79ebxtr hichdbchloch | | {u8226 } }kevx5fy6 fz147qt8bcl033hjj9fv-848{rtlch ltrchloch | | cf1 Allergy status to narcotic agent status | | }qlpar}qltsvertalt{zzsvlfqdoassz0nybpm | | b0w3a0cp45atzrihdxeef{*omnzbe0zftoarof9lkfmpqhxi1xxbhahu8}cv0axniplk3humte | | mpck0c0c5lz96jiif{vwodenfxyuzpmfmzkepyk7y8q4d9gt85eusok hichdbchloch | | {u8226 } }zurv3nt9 vm678fv5aad530wco4uz-210{rtlch ltrchloch | | cf1 Allergy status to other antibiotic agents status | | }qlpar}qltsvertalt{qnkrnaayfgsxt4jgpof | | r0o0d5sm95vkjekjzjayh{*dnlary5jpctvdhe1gmimyfgyo9rzhwpnx8}mb2ukevtyy4todas | | qsjn6q0t7mm65iggt{mmepkixbaildbgoowqxso1l2x3c3do81jyzcu hichdbchloch | | {u8226 } }jhch3mc6 el987jt6lwl764nib7lf-222{rtlch ltrchloch | | cf1 Allergy status to other drugs, medicaments and biological substances status | | }qlpar}fbpfidojhwmlnacndouecqjxpyoyfjcynjipbmylfkyqmxekqqkiqtf2lcavtgxqoqc | | bigehlhvf5pbsukdfywgqlsgccjuyq4jmknftuxexkygneqnqks0obzcbs20iqlath73ercnte85v | | atmgy21whfyqwi2hrmfloh5pkfeysc3kakeiym6mfdixbbqfumfjffi5119swszbcsiyxtasidofwfi | | sayouokwl2ffxvluoqqipapnelhwnf9dylqnioawyyoupqngogz5pwoibtqvptgcpzgbbiea8bjiv | | uh51nmfnza72rpvsbe11vrkibm93lqijpco2jmqtxbu3qihkfcv3mnkvgle0mfigpoukgwjdnomv761 | | 0ltyiilstlzwymochknqjxzqnpmqib9auahnblgzhcpbnfbaffb3jtokotahkzmcrudkznvd5oxae | | iqbnlfroerbediid4yrbixt60aiajlx75vvqzms27zrufst33zvfxzuj3onpmjct3gatytyh4omfue | | jq8ypykdocdbayldler0958yrkxpuqldpjveddbuskkpqtjsakdt9camtxmiedzgqjuwadfxv9ghgb | | eltivyhvjzyggqcw2ncqjfcwmugxnyfbqbssi4bkmdpj14pswoac52agltkn59xymvvm32uphdbhr9 | | orfvlog0xawruwg0orbfmhk4pmqbytfbqsnxypes1622vvugwfwbprzafiuawxbjucrqteqaj6uwwb | | xqpntnrozoxlebrb4rtfrjqfkmbngdimhlxak0owsmxywrulaskohmuhpy8ipgktr84jnzlkt68es | | xikj47eutamg51kpvynfw2glvlwrm5cnhgikf9qorbnnc4vsbycqzskaahwazg8626gadyyhjgbzfyr | | ailjbyipzwwbugbk9krgdzqdqvwkfsflvgjbv1puhdpfwchyxqpjogajjv4qidkkqebdoalvefzib | | ua2pjikor46mintkd85hyxlqw69blyrdg94agstuck3nzpfmof2ikcjuxv9afatpfr9oseqbtdqtsh | | dnzjk8693dazyfzwlvduxmxllbtlbeavcjybnw0dtyefqhoeexdnjqaaxfa1qopnaprjcoqkrrdknt | | ib2pvoajdcaohfbponfcbbl5wxjhep18bqmobn60tqotsq19xdcweg92ldbjuzn7ibokfwy4ibxvzq | | t4mepikwb7qnrrvpxjgnfospbe06048c1r4t6rz12kiqukynzdwuaohfloglmlp3 Dec 10, | | 4352mprfimfulk7l1c6ob13hytwdaakvvprbrbuxuphbl0 [facility] | | H.srswdezqdx7d3v4ak47domlonasybtrsnicnmgygq0 | | Pendl.ckveamjoor2m5y2us58ghltnntyjyiyvrtmxalrsf5 | | IOnkerafzhjl6m9v9tk61oghnxfkemksxucoomqtkww0 Emergency | | ptgfspcook7i3a1hv05fhjdbfrwfpxtgozhsblozk5 Emergency | | lqusczpaor9g5g7qs55wumkbktwxyhvvzcxgisd{zbofrulnsqekm8sgm}qltsvertaltf1 | | o4e4ho83bywvvheocgq{hyulhpspncoan9qlunf | | a9b5k3nz98wwjzngsycff{*rszfma9spqndppk5dcnrqouaz7cykjeiy2}ef3prvyshj8kblyb | | rmzh0j2g2vy34jcms{uuxxmivixrjtuceglfjgv7x7w1b5wp01hjfdk hichdbchloch | | {u8226 } }lovf0fs2 ln251ab6pgh616fzx6gy-529{rtlch ltrchloch cf1 OTHER | | SPECIFIED DISORDERS OF TEETH AND SUPPORTING | | }qlpar}qltsvertalt{cmchjbnuycgmc9eheeh | | e4n5j9lb18hxenldecjmo{*galizg0wdbcoscp3dcfuinjlp3bhxisxr5}qv4besfpij4aodeq | | urtu2k1c9iy26cpzn{aptyovzyrtjnsumonqdqu1s9b4o8ho17mlmji hichdbchloch | | {u8226 } }ewls7tg6 ip164en0rel814xrb5lr-887{rtlch ltrchloch cf1 Rash | | and other nonspecific skin eruption }qlpar}qltsvertalt{vzpihdtrdsmnu2oiepe | | o8s8s8cu43oqnlnnjtfbv{*taeirr3bvkvywpv1emobuzuny0buzukji3}us2pqfjowc5mbyof | | oaru1x5w4se41gaxz{phaznvhhefaxiozhosyyb7t1r9t6qs72skwzi hichdbchloch | | {u8226 } }ffir2sb2 gh302qw2gtx216fbc0rq-778{rtlch ltrchloch | | cf1 Nicotine dependence, unspecified, uncomplicated | | }qlpar}qltsvertalt{smfrzenakdllb9bkstk | | n6n1w2cn87cqxtlarfvwv{*lfrzti1uxazwkat0pnukwxeql0lmbiiuh2}wg6zmlokjf5xwtzl | | dkjy9g5q6db76lfmv{zxlspezctmzxaknagejmq6r1v6k0hu82qeypz hichdbchloch | | {u8226 } }eahm9ld7 oq168pf7aac934qbs7cn-427{rtlch ltrchloch | | cf1 Anxiety disorder, unspecified }qlpar}qltsvertalt{zddptasqeaxkn9yvprf | | f4m5f3ey35tdpsmwongwh{*ntkojx8riiealrn6raytydosa0bzfltiy2}mo7xgpazvt0skkha | | upqz1u7k5lt72sitk{gfuxmsdcsaymiyisxsfpd2z3r5z1ro83tjahj hichdbchloch | | {u8226 } }ndmw5nq1 du058eo1ldo813tni5wm-690{rtlch ltrchloch | | cf1 Adverse effect of other systemic antibiotics, initial encounter | | }qlpar}vgevicvwvlflncsgquznjylnmzygwenqqrqoiyqqtppijklklxhwwin1xvlxkqxcdlw | | oloxnzovp5uimvqezteaksvqpzxrvh3fhjwetftreuenblhutkx2ngfhyy01tplbva91gmwdlc58s | | nlojo87bckvjmo2wnpirdx6nwxjney0gaslcel5jvyduziodqcdwkpb6638ymzmbsxgauqzyzknrokd | | lzjbwfjge9cnbluwfxbwdjqskrnjzh8pognnklzywhnthirgwty2doxxdrklvikduolibsud5ncpt | | ri81kgnszh54tmshwy34yshhdh58qaitscf2tnsiedu2xewccay1pvjmltf9nvzrzyshgekujbte432 | | 6ctsvtglakjkuopjqojrslatxtxcid3ymyeupvetgelnirniugf9ioflfimqhzhavizkizdx9gnxu | | sduwhhybcibgxsyt9ggqfpd63uccljq77kdbtqt53nopxpo58oynifyq9gmnlidc5wblvhwd8miavv | | eo4iotgbxungwnszffw9850zajpdlmmqjmwxjxurqqucymgdeihf6sjlxfkgzsxrmacqedbwp4jdro | | obbhspokbpivcfrw1kxvjevyfsrxlrylbzwnz0qwjxzh81xbmcyl68rikjbl54brdzdt50uqlvydx3 | | extsbea7bckpivm3zkyfjvk6tsndukluwsqsxgqj0868iaefjhovfumamdfexplwcyqrhbudc6yofs | | nofpvrmmmqenhufw7ujpmfgyqddzavtshefwq0jkayolkgieecdhcqwjix8gjwplx62swiqln92pd | | kajg81widkwv06jybpgkd4uibbnkv6zjnqrrb4pxdksih7tuezxbcrewrenhjv4995ftnkpihzwwctl | | crozsakuwzcipxsc2lxrqaiajbrwuzrrmclhf0rckwmsocijxxnirgygvj4hcwyndwdyxevhuflvn | | np9npqnpa45qnbfiz52mpkkqv43udcesh02ewzfhvr1mwbcoqu6sezsjra6xujfykc8jwwczfbshjy | | mzxde6432nzbymuspsfyvxvtcofahdxapowegt9jvegybdsrozcyfchepna5wsdbwgvfwjdinfjglp | | on2zhtpaaxgebngsdbdmocy9ytcykk09nmmori69izlhpa08cqwvcq35vwuosqi5tcsljlu1gpondv | | k9zhmarre1cpdkyouqjziooopy71915j7l9d4ae90wznxwfzsxvhtrhtfvbcrxg8 Dec 10, | | 7479srptmglumg3p0b2kl76pdwlowjilxoxfrtxyprhtf2 [facility] | | H.fwsggebqdd7k0g0fa93ejslpdjqxsfkxazkdkugcs5 | | Pendl.figzbodgwk3f9b8my82xjmossslwdmzcpbhhoorll6 | | YMzfhlrydbbs9q1y3ky37kcunbpgymqapbsfsvcfgnc1 Emergency | | nkxqskpuui8h0s6qx62ldliqboxleyxjzjjafjavs2 Emergency | | xjoacgyetv9f4h4sd94oqainqbwzefkpbxpqqyt{tcsrykdmtydyn4peq}qltsvertaltf1 | | m7q6an52yaxzhzilbwd{hwcgzranjbprv1okbyc | | y0k6a6rb59nwobfrglhbb{*imrcid7qweydgrs4uyyzgqvem6ratadnl7}gu4npmonwv3ixcib | | jdtr3k4b3dj34tcgy{dxudleaaiwizotbdfxokt9c5q2e7py99aloxj hichdbchloch | | {u8226 } }lzfa7ar2 me321xb6kdd507wwt2dv-048{rtlch ltrchloch cf1 OTHER | | SPECIFIED DISORDERS OF TEETH AND SUPPORTING STRUCTURES | | }qlpar}qltsvertalt{bqwijegkmcgkh5ughkx | | b7p8s5pc87tbxlezokhbj{*sffmqj5dohwovmv5qecfickdt9yszfpbr2}mk8pczsipo6nzpbq | | llxx7n2t2fp47rrpq{nwneuunklmffjspbvasmp6t1i1d7ag48pgdkp hichdbchloch | | {u8226 } }ymme7vg4 ls460cy0vre290ovq4sd-733{rtlch ltrchloch | | cf1 Anxiety disorder, unspecified }qlpar}qltsvertalt{jstrzonnsqkrv4uqzau | | k0g1l0cm40fqbcfsezoyg{*tgjamy8imoaifon5vdyywdwkl1ovbzcse0}uw5gxnefxw5sljoi | | lawy4q1u4zk09jbfw{rbkcbrohgkbpntjmesils1o3t4h2zb45zjlvf hichdbchloch | | {u8226 } }kojk1sl7 az074iy1sni226wue7ym-997{rtlch ltrchloch | | cf1 Allergy status to other antibiotic agents status | | }qlpar}qltsvertalt{tnxszjfrgdqym4yqgyu | | r9p1w7sl99rrfjarikzrm{*exemtr9dvczzkja1zkuisascl2gmqnfcg7}gy7bhfqcrp1ezars | | ywmw9s7r2an08zpxd{dvxejthtpfvatygivpsxs0t8z8v5ps88dfbfn hichdbchloch | | {u8226 } }lawe3cm5 ol003sx6jjm981ben7xm-913{rtlch ltrchloch | | cf1 Allergy status to narcotic agent status | | }qlpar}qltsvertalt{ofmmsblgosdef4kmzaf | | f2v9e6jm28pxsixsnzjzp{*gujcfn1nlbkjkde6ocwsdnsde3ovysnuj6}mq5tqwicah5xvptl | | nrzc3m9c5vh70qbhi{ppmhhmjhfkcftzkmsqqsx1i6o4w0xc07uzhuf hichdbchloch | | {u8226 } }oght8iu4 gm842vm3kwl428ddx0xd-013{rtlch ltrchloch | | cf1 Nicotine dependence, unspecified, uncomplicated | | }qlpar}qltsvertalt{nilqmugzgzqfs9hwnpy | | f0u8e2dw85errockdcjue{*wljhys4jlvhygwe5tliayeofd4ttlljwu8}ph7gcowexu3qheim | | otdd3q8h3gd15nuir{hmvneuxnefgzuwnoqcmal0g7g6u2yy34vlmyq hichdbchloch | | {u8226 } }ijbl0jd3 fc915aw9nsv019byl1ol-480{rtlch ltrchloch | | cf1 Allergy status to other drugs, medicaments and biological substances status | | }qlpar}rthdhtysyjpmrtffxniklbjkhyzxhjpvcbwdxininpmvxcqxethdhlb2vhasikwxphi | | qlsbuplrn7pvtqxpyhrgoynppmtkey7afytoqntxtmflrgywqmz8dqgxjz20cqhyuk40axzyac15d | | evqdx30dlnlotm0upwmvff7amgyiue3lfbkzug7nqqumchqiqeuyeie0808ftxnegpsrwyczmkalufm | | oimueewlg2axmuqeanubylijiqvdsq7mtfgbmyizyixqihgwnoo6tnuntowyfwayibidposy3uqdp | | to69lrpkfs47agyotg59rqicix30slhsllc2agkyzxr1uevreoy6bbdngqx7lbgexjaddstqwxlt446 | | 5bjnckearreeckajzxhchiuunzsyne0fmtqpmxjktiotgiwqscz9lfwmtrbgmeojduvcynej9qxtw | | uojniskbowwoqmrv5rlijtz45tjvdnm54dlvijc99srddir28vhectko5bhfsdwj5ttahbdj5uekgq | | dv7flgwgkyurhivzzks3011ebahtinlemfbhznoovrjvxudwlmul9kgisoplmrcwblzuntgmx4nhfj | | qikgusnaaufrpnmq6cupwtjksskpaownnkobx0nifxcj51lamsrg92nkjlbg09cbvnjf35rfzgacp8 | | opcexck6fistyol6fzidwaa9iewymwcwwqeczwao0811joexfcffamgavewcdvtvejviihjva2aajl | | lyvokhrctgxwlcaq7yxclpwgkaneururmrcft8trgsoeeigygztcinffkj2cqyozz22efsfxr76xg | | cxnq78ifojmg60iwqzicz6kdeinlg0dvpguat1lvyflvy9qvktjtswrokpmeou6702cfagbpzyyqpzl | | ugsxgbujwzmfirwx1vfouhqkwtipylwglbiwk6lumfxrsagqtixueewcvf7vydoneghgycmakqxmf | | gl0qqsqgi72jauihy91tlymgq59wnnjii87qowlhya8zlolvvz9ncjgzuk2rlfosis9fawbrfhpiip | | ctreg4872ipxxvkvfdinuhlzpoflmoxdvqvhfd5aygtritglgoegvcxyzov0falextpatsqgnrehbl | | gw2qwkkcnubxhamoliqlzih6rewozp60tlhtna65qejaak68sdqpru51nkiyicp1roqyrcr4uzaqlh | | u9cvezdtn5iagesspzwlllqaxo95751u3a6t2iv28zojhkeuumbzwyjrazrxsvg5 [facility], | | 3160hpxhsizjjv5a9k9dt18nqbupwvykfkgbnzauclozu8 [facility] | | H.botegxpqqj2y3g9go08ahcboglqekhewtzxtroewe5 | | Pendl.bkqeaermfd1i5x9dw02bfnewzwcqrkyizzugcxpvn1 | | MIeuhwxmsabd4n9b4sv94ohqgswadinjcipxjmrhowj0 Emergency | | fiavqtryzl9x9a8fv24yfqsvzhjhbqfkolkjuaarr0 Emergency | | hridlmkvjp9f4b1kr07ebsngfjkqnjdellngwot{xyhbqnzrywtar0tra}qltsvertaltf1 | | d3v8jp83aunbmcunhoz{hhpxsrftitodd9cdcta | | t7p1p7ns27owroizbheba{*ulufdj2qwfetusa6acdsjgfvb6iubqhjg1}hu4iclguia3oqjlt | | rren2p5j1ev58eivv{robpaegdufcjozogwegah8b0q1h0vi16jmeyc hichdbchloch | | {u8226 } }exby1ui4 fd155fw2map251dpr5wb-625{rtlch ltrchloch cf1 Allergy | | status to other antibiotic agents status }qlpar}qltsvertalt{zgmshzwvxzoqs6jkmjk | | z6v8c6en85nasbibuzukn{*jkrmgb7aspwueoi8cakaprmgi5lnwofbk0}ny8vwggisy6ilghq | | cplm5d9i0jp33gqnr{zqaxjhyfsdwuxohhxsokj0v3e3r5ko55cnpoa hichdbchloch | | {u8226 } }cebl3it9 jw436hk4okp907zfk3tu-805{rtlch ltrchloch cf | | 1 Noninfective gastroenteritis and colitis, unspecified | | }qlpar}qltsvertalt{dyzcrwrldgrrc6rlexd | | n3g3o2ph50sxamejglqbn{*snjcqw1kwnlhffq5xrtotgvnh0eroruyz2}bj9ymqfsrz8fpjkn | | jqhh8t2b7ip08ipkm{cwtsllrthkxrbucttfsur2p0d0o9vd54bfbwh hichdbchloch | | {u8226 } }oktl3ei1 cv516et8wpt601wvb8wn-863{rtlch ltrchloch 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 | | }qlpar}qltsvertalt{htrsknktscwxa2sqevf | | m0g6t4tj92pvepwvwfnzp{*axcwex7hjanczpx8yynzppber8rwpooli4}mu0dwumdah9pkbtv | | hosx0l2e7hk66jkpp{zivtbemmlfpdgdmbogykr5n5r1c9wj75fkjgx hichdbchloch | | {u8226 } }dhdc5xt0 ps209gy2dqq384nlk2pa-722{rtlch ltrchloch | | cf1 Anxiety disorder, unspecified }qlpar}qltsvertalt{ohizuacouoija6qadod | | v2b2x0pt99uppuhqovzyg{*zpliwu6pjdgxznc0oruqbprou5gmefvjx5}vc3njtmvbt0iqiuv | | polg3l7b9pd17rple{qhdlxcezunacyzkwkovwm0u3p5k5ws96eodgh hichdbchloch | | {u8226 } }czlc8ku3 na074if4pfi811dsz1my-270{rtlch ltrchloch | | cf1 Allergy status to other drugs, medicaments and biological substances status | | }qlpar}qltsvertalt{oscsonovebhce1rfpdx | | k1o0x2ku61xentiowmpmn{*pcjhul6wayfysyk0daddrdaws5mcklszh6}ev4ezyzrtp1fjxbj | | bchf1i | + + U [...] + | Urine | [facility] [address] [place] [address] | | | [place] [address] | + + + _POCT U Dipstick [...] + + + + | U Spec Coral POCI | 1.020 | <1.030 | + [...] + + + | Urine | [facility] [address] | | | [place] [address] | + + + Comprehensive Metabolic Panel [...] + + | Blood | [place] [address] | + + + CBC with Auto [...] + + + + | Auto % Hendry | 2.6 | 0.0 - 12.0 % [...] + + + + | Auto ABS Hendry | 0.44 | 0.00 - 1.20 x10'3/uL [...] + + | Blood | [place] [address] | + + + in this encounter [...]
--- OUTSIDE RECORDS SUMMARY | ~2017-08-24 | XMS | Clinical Summary ---
Demographics + + + | Address | [address] | | | [place] [address] | + + + | Home Phone | | + + + | Preferred Language | Unknown | + + + | Marital Status | Single | + + + | Roman [employer] Affiliation | non-denomina | + + + [...] Team Providers + +------+ + | Care Bag Mender Name | Role | Phone | + [...] Narrative | + + | | | {[id number]{info{title Notification}}djctar22707aoo | | cnd49780kzzhcv82235ejgily17917vauxnmq074zujjguy348xlsdt5863csiyz462xvwxr626qrjyb | | 211gkcccdrt5769nvnjzznd210upjakvee190fxjzqzgy775ximidplwnj3w4t4yj72{fonttbl{f | | 1 SansSerif;}{f2 Times New | | Daniel;}}{colortbl;lkc6kmlkb9ujgc8;nih723btnhv961ivxk295;uqd618uftzy895hvlw287; | | lzk053ywmsk937uvsg855;ggh637lgyxb740uexm088;}{stylesheet{z94omtqx33 Text | | body;}}{*listtable{listlisttemplateid1{qpftbxunvxbsvywdr49sevdsnk3jkalnycvkxau8 | | levelfollow0{leveltext '70p8263 | | ?;}{levelnumbers;}o8m3b4ls47efygsw-934fc726}{pdyjwmuzuikcwdcum08hovfwij9cwwd | | nbuhppsh7wdokdxyrtgd5{leveltext '03a6730 | | ?;}{levelnumbers;}i8d2d2oy12opwpnr-775sw3834}{ldpipsrvxsrrifsjn08xhkigdd0ppp | | sncszqtzd5lmcmvupvtkd1{leveltext '42l7965 | | ?;}{levelnumbers;}o0r3z6cg07koaunt-767lz2417}{iygwnrvdttckruuow18wovqvmy8kms | | jswqeptpr0bckesudfkqo8{leveltext '99g8735 | | ?;}{levelnumbers;}h2y2q1be97xpsaar-759ln5830}{iycsdgsojthbnagpc50bckmzqr3qek | | ojvritccn8tvmdhasgiwv8{leveltext '85e7383 | | ?;}{levelnumbers;}h9g7t0cv91vztido-465rr3917}{mhwjysorcfnmootsh17tvssdst1wwd | | xjakizxvv3llwagapwinm1{leveltext '48u5443 | | ?;}{levelnumbers;}z4p7l5fz93sxriko-722vs7574}{mhxocugbjdjtvsajg86bvrwkpf8oxn | | lqkwarpnv7yaflpmqbife1{leveltext '39e2851 | | ?;}{levelnumbers;}g6q9c6cn16vqivwm-188bo2953}{ryjfkzonekgmvnfkv56zliygws3scl | | hngctmdzx4bfxovsvscxe1{leveltext '67l2392 | | ?;}{levelnumbers;}d9i7w0mu38fomvpb-085mk6504}{pmdvpzamfogutckbf44perzute6nnh | | ugysasfar5jwmuaywavhy6{leveltext '50t1061 | | ?;}{levelnumbers;}c5p6p6qe48ipmcpw-498sh8726}listid1}{listlisttemplateid2{li | | cqwoeconqkvmdtm00pexezyn6vvidqorzedit4fphumztzaxc7{leveltext '58s4463 | | ?;}{levelnumbers;}m7t9l4ko75uopngp-233da192}{uhfwhcypfcphhjlwt31tveobno6oata | | bbkuzwol0kafvmmylkxi5{leveltext '84c6237 | | ?;}{levelnumbers;}a9t3t6ap35eysfed-724le6133}{dmuchltqssevfnzxt57vvxxpgx3cwr | | cohtosizi9sphpewetbae4{leveltext '89c8831 | | ?;}{levelnumbers;}l0x2v5hz42yvpkeu-205pz6829}{bgxvafjwldikdigvs61jzzmcpb4fte | | nnvnwsjmr8fwuayakjhor7{leveltext '05y9101 | | ?;}{levelnumbers;}s8z9b3yr84sqsbno-285an5024}{dkbrztfnxkvmpghpw81wvfbtnk3iva | | qmtcejgwv2juugpztfocs2{leveltext '65x6840 | | ?;}{levelnumbers;}r4t0v6ok73khumns-320nz7006}{nbxzudavgcfousbln37xnxpybk4dsu | | fambfmyxp4gskmgkxslci0{leveltext '68q9376 | | ?;}{levelnumbers;}t9n6x3hc76fordmb-934pj1686}{ljohncfpqggddvito87eoztpyu0thb | | ckhkpoiuy3zpcirpythms2{leveltext '85y5428 | | ?;}{levelnumbers;}u9h6i1sz85vlisxd-206rb8538}{dpstxqzouazlbfdbq30ircaluh5hgr | | twzmhsfir5plumgkdhbps8{leveltext '24w0679 | | ?;}{levelnumbers;}q1v3o1rg99jntehk-782rg2447}{eurstslxfkqzugwtu13slqycqp3kqy | | agpuwincj8xuacoizrdoy7{leveltext '08r3820 | | ?;}{levelnumbers;}g3s8y7fm59xmivav-713vr3584}listid2}{listlisttemplateid3{li | | jonepqkkwnlkffa26zuiitlw6fdwfpncuutea6jhnhftvuxor0{leveltext '97l5696 | | ?;}{levelnumbers;}c1k7o7gc51dpbdrv-045jn958}{obnpkhanflspovlta89vdltbov6phqu | | qvxswlkg7smgdwbyjhbl0{leveltext '65m6531 | | ?;}{levelnumbers;}v6y6t7wc66mmlexb-555zl5094}{zwsydqkfesfvdtfas31xzymfmm0wcn | | tfocxpczo8xebtpzqiebe2{leveltext '75a4686 | | ?;}{levelnumbers;}b1t4a5vo59csboyb-595lm2680}{iksrbvuexhfqxxvpn79bivjaiv2lsm | | wroeqvtuj8lcmbiicsrrt9{leveltext '66l6082 | | ?;}{levelnumbers;}t6f4d2xp18atafty-856iv9117}{mhkazxdxapnqxxudr66vsfflkj1nna | | kdrllxuno0bzewlrpjypg1{leveltext '93g6045 | | ?;}{levelnumbers;}p8v9l2my10hgqnsw-473vc0971}{fhhiexdqzxvewbdoc58oosnkag4qbw | | nfznhsaxe6tpzgduhboqx7{leveltext '25c5294 | | ?;}{levelnumbers;}t0e0b5vj72ucbdov-623et2020}{vttuntealphaevwhd60xggjqmg0tim | | uujsyezbm7lhhygqrxspy8{leveltext '02o8216 | | ?;}{levelnumbers;}g7c5l5vp16njuxiz-147fv6142}{xcfjstnagguydxflh98xkwvogc4kck | | olnurihpr4wumakuaqpjq6{leveltext '92c7043 | | ?;}{levelnumbers;}z8r2c5nb98gsesyd-297pm0876}{dujliyvusrziqiqfk60ztilkyl3exz | | odxsouyck3pmvprrtbxkk3{leveltext '61j3565 | | ?;}{levelnumbers;}w4s8h1nl51foiirb-726yj4729}listid3}{listlisttemplateid4{li | | xerdkygjyvyqdqd02kvvkshv6whcxsrwlhowz7wjbwmrgyizy0{leveltext '73e6594 | | ?;}{levelnumbers;}r3e9a0wp43dqvfff-531ic568}{fsmxeqjkbzfwgpmel82vqbnyhd3crwi | | tzqcassy9vvrwynidlmt8{leveltext '77d4583 | | ?;}{levelnumbers;}i3c9q2rv27dulwlg-127wm6697}{edkbnjtbqwrludgva21hbkratd8wtd | | nvzivpyaw7qlphcuozqod8{leveltext '32n5952 | | ?;}{levelnumbers;}e8n0p3zr98pstupw-150no5741}{jkupifjyeiawfhlvp23ypjgzay7yhy | | jcadjxnvg6ucfdcnlxlao4{leveltext '18r8445 | | ?;}{levelnumbers;}g1b2c6lm41ayquyg-617jk9160}{ynvmzvfydfeeefyby05gtzoaao7jaa | | gjtiazdlm9pqkzmqxemep0{leveltext '08q3934 | | ?;}{levelnumbers;}z2e6m7kc17wnqiuj-881ve9604}{lqcncimieuffnkkqb53sxduayi5fgs | | zpzouyipw1aeflugqvzlj2{leveltext '23k2110 | | ?;}{levelnumbers;}u1n7o6jm31ntfqyk-852op9994}{lwnemgrqjnxytasws89kdfhjhe7rmd | | ecxtgxlxq1lkmiphjekah5{leveltext '60s8394 | | ?;}{levelnumbers;}b5e2p7bk75jyvpgt-955gj2680}{rtiyeuattpfjkfell20tiyrpzw5zsz | | zlugpmcrd6viataobxdbd4{leveltext '59r6691 | | ?;}{levelnumbers;}f3v2t6zu86jynjft-981if3230}{ifeekfjrqlxbyfpbk65bvgccoq8lpe | | qmmgwnbab9mlipscfnhui9{leveltext '68y1369 | | ?;}{levelnumbers;}v9o3m1ke62ffwgnt-632yc4362}listid4}{listlisttemplateid5{li | | ivwjxiskedceloi50aepbaro0fiazwwhaethy8advpvtabwwt6{leveltext '60p0505 | | ?;}{levelnumbers;}z4g8h8rj62tkalsq-838lj289}{jpvjcqscexovrwqcc43obwiosn7kokz | | esyngpem9tqbkrutylyf0{leveltext '06s0720 | | ?;}{levelnumbers;}o5z2r8nb18ancdrx-100dk8613}{fwcxricdvmvengfld83udxbrbt8hko | | itcbgnlfg6qdmqzanizrz5{leveltext '22a1851 | | ?;}{levelnumbers;}n0p1x9zr08sctnsx-537us0103}{ixlvvmueubmawncsi60iedyhik2jub | | sqhxderfx4zoywajageqf4{leveltext '33y5811 | | ?;}{levelnumbers;}o9q7e8ky11fjiydf-076qu6238}{qeydwwxfkoxrlynrl61bacxjqx4kzw | | jahibtewr9plnwqoxuaez3{leveltext '73p5637 | | ?;}{levelnumbers;}b9k3d8tk46coopwl-431zv8235}{xahacqnpbytckudmi89cgzjyyn9vth | | oavjlanqf8ygbnjsnjqkk0{leveltext '10i4275 | | ?;}{levelnumbers;}a5h7u6nz68rjxcnv-708nn8114}{fgktzktcokdrpmhcw77tlgmqee2qny | | fsvwhcbjz2mgubhtmqqzr4{leveltext '52y9403 | | ?;}{levelnumbers;}w7r7d4oh86qmitee-457bd1226}{uezylsiffdkxgqcpg47ugsfzpp7rao | | sfqyurhsn3cmzydlxgiyw3{leveltext '43r7949 | | ?;}{levelnumbers;}u2s6r2si69elmgww-108tj4061}{yeddkicnmwsxxkizs04vistzxt0trb | | nthxqqqeg4nzuxmsydbgs9{leveltext '56c8764 | | ?;}{levelnumbers;}x9e6c3ta69qqbuex-991et2985}listid5}{listlisttemplateid6{li | | mryjcmysbqrocgd20amnauvk0yfnmvribafjx8evxtxdjkofa5{leveltext '05p7891 | | ?;}{levelnumbers;}y3q0w3ij35ebnouu-413hw499}{ooupudtascgmncals84wbkmale3ogyj | | mtflaoku6wtzotjdjkfz5{leveltext '16q5066 | | ?;}{levelnumbers;}d8o5s5ef50peahiz-215xa5311}{kvjigvekqjeyhdbck29owzywnw3trd | | brncmuqox0qegbbxdsbne7{leveltext '38v5700 | | ?;}{levelnumbers;}s4j6t8wj42ebxwra-764dd0180}{kukizihnhgmzvvfrh28mqcqnqp7nsi | | rlfuevxqj8dnadgoyfgnn4{leveltext '13r4870 | | ?;}{levelnumbers;}t8r9w3sf81epuief-875th7406}{atnijplxbafufmcnz73aatbywz6rjq | | uprtroakx8dqtjfoioimr8{leveltext '77v1573 | | ?;}{levelnumbers;}l1h9a9zk36uojmsh-842kq0983}{iwahsjmqupbvpgjmt71bylemln3mbe | | yqingtbln9akabfyvjwnn1{leveltext '20k8194 | | ?;}{levelnumbers;}z5y6k3kn29prkuzk-769uz4540}{dwbgktaydeolsvrvq13orfypei7gap | | xabvjlgnd1fmpcjmlyqkl2{leveltext '40f2350 | | ?;}{levelnumbers;}h1m9y3iy61ompcex-276pi1801}{valqbludqjjmyerem59hpulkgd1iyb | | wkqsgdxoz4jiwoxdnuiff2{leveltext '37x5612 | | ?;}{levelnumbers;}o9o2x1mf15hsyktx-334if5694}{lklpixqpiuemrdktr52ickzesk4pfn | | pbnnkfiok8mgpbyhgzxzs3{leveltext '60y1296 | | ?;}{levelnumbers;}g7g1w8bz83aefonp-243rr3422}listid6}{listlisttemplateid7{li | | tbrgahyoyoeicqv28omelpya2ljisjzepezxl3pyfechjyzzg1{leveltext '60n2382 | | ?;}{levelnumbers;}e6q8h3wk02baeqtc-585qt556}{hpohikcmmaaxkdhzy23qfslxzl1nlxi | | bwnvglxs4tugqhoaueom7{leveltext '49b9410 | | ?;}{levelnumbers;}j6x3x0ii12skleot-122rk2317}{rpwdpnrkogqoajfrn95bccygqr4yda | | zbgjbwmjx1zsspahrqxoz3{leveltext '89l0263 | | ?;}{levelnumbers;}r8h2h7en23wbnrwt-937ys1812}{auqdfkcnwbqyhiwhc54uwbskyx9rkw | | tmbcoxlev5qfdmhvmosxx6{leveltext '92y6175 | | ?;}{levelnumbers;}v2p3s8sm19ixbtvw-817db9447}{xlepzlshbyjuptacl19fcdgxau6ebw | | dhfxiowol6wygfoeuibzv4{leveltext '26g6865 | | ?;}{levelnumbers;}j9g4i8ky17asaqph-709bi2152}{vpsbxodsttyfhadbs10dvgavdi9erh | | zfevbwdsh8kbjivaemgbo3{leveltext '84i4530 | | ?;}{levelnumbers;}b7u8t5gx02ewzxmf-462gf5206}{iqlmkxhzrelsnmdgu85uzewmok9dmy | | xudfadmgq2bwdioldngxn5{leveltext '77z1863 | | ?;}{levelnumbers;}n4i0h9gt00rhbmct-158ja3014}{tahbgeksgthedpboh66quexueq9oqr | | bulycqtsq4efoavhkjoxn6{leveltext '45m3360 | | ?;}{levelnumbers;}q6n3e3mj74youoeb-603xn6451}{vxomngagudnewpqpb00jqycrjt4ubd | | ecggwzxoe7plcmzdatuso8{leveltext '72o3105 | | ?;}{levelnumbers;}r9w6v5mi97wcyabs-780rr4273}listid7}{listlisttemplateid8{li | | ghsacqsdwfyuhho33bthddqw0ujwkylaesngj2pnckviccmjt5{leveltext '37e2828 | | ?;}{levelnumbers;}u4s3y6zq07jndpnu-363et468}{haygksfzdlpcxyjid90pyhejza5gqxg | | kxqelkmg7gdvnmtzpumc0{leveltext '74h6495 | | ?;}{levelnumbers;}h0s6s2hl80ihcjod-953aq0586}{hqqaiqvasikghzkwo40ftdffvw7nxm | | jwqevzhoj6slcyjldivmw1{leveltext '81p4343 | | ?;}{levelnumbers;}u9o3n7hv85jkxujd-723lj3341}{kgqrvgmjrfaueaolu13qejjrlv5gho | | culztuxzn9iigfgycjbxg6{leveltext '25u2944 | | ?;}{levelnumbers;}m2h4z9gm62jifyvn-485hm9377}{katrcexysyzmodpbu47cjhlxpq1zip | | sbfmnixqo0psenunfnqrz7{leveltext '04q8875 | | ?;}{levelnumbers;}j4e3h5tt41snbdia-694en2627}{jmjrkbibwkcwobyrn09jgbncms0gol | | hqppqdtko8scqvadwkixa0{leveltext '24h3657 | | ?;}{levelnumbers;}i0b0w8dx62ysekxq-765pp8794}{aqaggooafxdlxhzuk48qinkkiz2dyu | | curiyjwrw8aqitmklgpao7{leveltext '43g3626 | | ?;}{levelnumbers;}d5f3r3ba90xuncxd-342xd4370}{gfvsohearqemczvhp80rxohqpi0efc | | aenaoepms2rdwgohohsbg6{leveltext '79g5021 | | ?;}{levelnumbers;}x4e3o6rg91zkdljq-206ds8518}{ulmkxusyhkakcvlne20yxwlpzk1new | | fdxunbbxg0lncopuhqmef1{leveltext '66m1987 | | ?;}{levelnumbers;}t7w0k0fc63puqfdo-485ot4513}listid8}{listlisttemplateid9{li | | eydhzemczxboche59vdlhyot6fhfadlghrpoc9whzhlhhxifs1{leveltext '65w5539 | | ?;}{levelnumbers;}k3x0b1pw24dszfch-664kb507}{vwiewyucfycpznwnb02xtdztgf7fmxj | | tkjlfcjc3rxyjvdlxlwv4{leveltext '31a1594 | | ?;}{levelnumbers;}i9b6i3hi18qxruxt-556mn1927}{tcspreaahmgysmodo55sxuagel7wkf | | fcaqiymci9ozdvhmffqti8{leveltext '55r4977 | | ?;}{levelnumbers;}u3h9o4eg52igfgik-377op0559}{cvxtttmzmvtnljgof71umjpzjo8ypy | | atwvnjnue5fbiznaphvdv8{leveltext '95r4202 | | ?;}{levelnumbers;}q6r2m4gg11mdzxyu-224ag6204}{gpjqdfflwzhnlfwab89tiyhsrf1usx | | wgqajkdkz2xbzjvupcvqc9{leveltext '43v7635 | | ?;}{levelnumbers;}x3h9f3hd04uettas-929kj5337}{kgivwsfxfawovwsbm24ylesdlk9fzn | | fkagixket2xwxfudnhgfs6{leveltext '44l6499 | | ?;}{levelnumbers;}a5t2t9eo77xvdjka-887ji3158}{bxmnswozmmfecwbbo38ckjofqm1kim | | ukcreyyny8flffchizoii1{leveltext '24h9404 | | ?;}{levelnumbers;}x3y4b0jb03bjsrqt-459rv8350}{rpayzekonnfcpmtir91jvnexos7kzo | | wpkhxhnci6kxsbebpppag6{leveltext '96j1937 | | ?;}{levelnumbers;}e6f9n7az00brjfpr-294jt6593}{hhpieggzoqybsulsi08xuysgjb9lyu | | zacjdlohc3xbiixxdbdgc9{leveltext '06p1562 | | ?;}{levelnumbers;}d0z0t4vk18tocpvb-189uf1537}listid9}{zqfdwzsueijnygjfir76{l | | gjgesxokfntqxoat04yuztino8myugxhskwpih8ydajiggcunw7{leveltext '77n6160 | | ?;}{levelnumbers;}p2u8e8pq46pqviit-373ok420}{kmepdtgucnqhrzcup05kklmrrq1jddx | | nacxpidd8aarxxoumzpn5{leveltext '83y4921 | | ?;}{levelnumbers;}r8d1b0fd24zmsaus-037dv2556}{uoubujfytfbstzgpn24xropiqb4roc | | brxrfkcdb4hjidhicfaam9{leveltext '99q8638 | | ?;}{levelnumbers;}s8g0r2yp68gugnie-523kr7087}{tekbhaypazxghvvma93vbnlgwr4svl | | slexkzixx1aigbwbphske5{leveltext '56h6615 | | ?;}{levelnumbers;}w4d4i2zs13gyvesb-971vn3806}{wxtrkdsbhlvkerfsq89hvespuo4npn | | glhggaewx6sqenhawnlpe6{leveltext '87z8942 | | ?;}{levelnumbers;}i7j5q8jj81ixyzlr-323yg2088}{cglbqpgdksvaaqxsz38uppwadd5qgz | | zjstqtkcs0rabfhkljwdo8{leveltext '12y3209 | | ?;}{levelnumbers;}k8u9l4sn78kepgvf-941yt0570}{tdqhewdqsspncrcvz27tkpozlm4joz | | ajkwpjrfb7qkcpkmfwnme6{leveltext '54q9575 | | ?;}{levelnumbers;}m0j8r8tb69vvoorm-619vv8130}{juvnxfygziovgnrgv23vfvdybg0gjl | | prxkyevei4idddwyxpqjz7{leveltext '34n4343 | | ?;}{levelnumbers;}u0c8x3xn78pdlhwu-203au3523}{vyagjnzeuxbmkhllv09zeqwlol2lqm | | umewoypgk6hularfwbudf9{leveltext '80y1010 | | ?;}{levelnumbers;}e9e3t9lx57hvpxni-282ne6344}ncijfu49}{cyzlpfuzelhfnzefqn85{ | | wrrnfhpxeipxkizmb30pulrlye9dcuuintrqesd0ffuimcnxbiy3{leveltext '91w7309 | | ?;}{levelnumbers;}k8x5a5qc39ftnvch-131kj676}{bjhwdtppswdeklnpb49ebiyjbe9oowm | | lsuujjdw4grebterzqge7{leveltext '06m2989 | | ?;}{levelnumbers;}b0c6x1ub90npeblo-733sa2363}{dmijzkuqfgicgrzmd57fiepnob5dec | | tibhhtqhf2xxzdrqupwxd7{leveltext '21n1256 | | ?;}{levelnumbers;}j4e1u4ai46ajpbnv-913ij1493}{pjxrjqdiqohekynml73macceav4wzn | | wkuitczyv3cxkacbbgrns9{leveltext '61k6958 | | ?;}{levelnumbers;}y0n6v2wd20jybknz-011yt0112}{wedwyarfhlmsbxvey87lgqgrqz4lhe | | tkqptuzgq4slfuoloyjhx0{leveltext '67g3117 | | ?;}{levelnumbers;}i4w7w8eh32xayrcv-674sz5453}{qfyasksnutaithkfe01ksmrqgg6oor | | rqjmrdnhb4yjspuilbbud6{leveltext '54g1064 | | ?;}{levelnumbers;}j0t3n7gc00uytacf-241zr1512}{omclyylwropmakhdv14ueknvxf1zvj | | usmtftqeo2awkpwlnquxb2{leveltext '14b4112 | | ?;}{levelnumbers;}o2v4i5gr72yyonxp-218ff8750}{dwvdygztbymufpkoj94xixpnbi0rnc | | ddouqdjpb8hvzjgatcqed6{leveltext '14x4927 | | ?;}{levelnumbers;}j9r1q0pp43sgzlme-337au4154}{oemzlgnlsbqsvwzxt05etvyrwi0jtn | | isqyotjig0ttuiphrgwsl6{leveltext '83i5735 | | ?;}{levelnumbers;}y9w9x5vu78emnztv-674yz0964}ykkeuh11}}{listoverridetable{lis | | pyzfzfsnurzzpis7leevwvtvujwhijuqx2fp5}{prpkrzvpqnwmzgklpq5mqnmzttosidkofxof2qr1}{ | | shnpcodtgdyuhjzrru3snyksyyyhuczefawk1ke5}{ysobfmmisnsdcsjvvh4cojbgxbkwtaxxtkvn4m | | s4}{opmhtopkygpybplkmq6fyvermaqfbgjbjmet6mo3}{vyyjvqefvhfhvafave2vedgsttxwyyonins | | t0ls6}{vjyyuwffdwdeiixpqy1knaddgkceqkythgki1zs9}{hnylxixzbujghljyzo9bhwakvtiivly | | ngzzp2eq7}{lkfkclvbfvwmofvlhk4nbsscydbjbktzmibc9qx2}{beaiukkiujtsqhdbzg74twdlfuk | | ugbvwvvjhd5xe08}{keefcnxljyrjseifbl99lxuemqfiyvquxvvgc6fz11}}y3p1o3qk18d2z6m | | 3kj68c6e9o3jx68{widctlpardbch{josyprpyluionv5gb9qq80kh283nj3ea5pf6{wid | | ctlpardbchqccf1 EOQPc654?ISJYSXCQZJTEq563?08/10/2017 13:50t879?BRISEIDA, | | QEKZDUFFk850?MRN: | | [id number]}v5u9c2gm62dtr}k5f9y9jc00{kilwuwgxfbwdycj099kp3qm3hj8{widc | | tlpardbchcf1 This patient has registered at the [facility] | | par}l8l3s0nc97tgc}h7h1r6ue91{zpkvrzgnddigyj1wxnt27zi216jg8yi3rl7{wi | | dctlpardbchcf1 Criteria metpar}o3f5e8ey58{pardpar}t9w1m4gt53{pardplain | | o3l5c0yl13odcdnhddeiv{*tsuqxz5cnpjoyhp3cbfrghbgb8tbxxxoa5}kb8ydmjkuu8cxgsc | | xhal3h9u7tw50acfg{bgqtemvlttche7b6a4sp93rguva hichdbchloch {u8226 } | | }plnr6ry9 pl272ld6fre139rra9bp-326{rtlch ltrchloch cf1 | | Guidelines}par}{pardplain | | v1k4z6vy30kwtbeqgbrkw{*pmueaz2qkusfqtx4gzycjujwl4ocrajhw3}sk8qtzrvfh9mojpi | | dzes4r3k8cl75okxl{orcxibzosauhk3z1f5xy44saszc hichdbchloch {u8226 } | | }juep1bd1 sw657lj8fow013pdi6bh-976{rtlch ltrchloch cf1 Frequency | | Patient}par}par}s9x8k0or78{neydsiivxitkvi6avov38bv753sr9wc6if5{widctlpa | | [facility]f3c0t6wh20ax1 Last | | Updated: 06/11/17 6:10 | | PM {par}fh7so016na0hz3{widctlpardbchpar}j7p1d5vy94c0bfaq73ss747kf6 | | li0ri0{widctlpardbchcf1 Care | | Coordination:par}n8g3t7zt87{xabwwqkyowrjvql457cu7vj7iz3{ualzqfblawdagzz8i | | 8fw4ho60 NOTIFY CASE MANAGEMENT TO JFHoj8i2b4x7uj82 IF HERE.u160? | | [phone].par}w3o5e0js46ll484wv3gd5ea8{widctlpardbchcf1 ENCOURAGE PATIENT | | TO USE PCP OR CLINIC FOR NON-EMERGENT PROBLEMS.u160? EDUCATE ON | | UTILIZATION.par}x6u8u8xm01da275oj9ro4gj9{widctlpardbchcf1 PLAN IS TO HAVE | | [facility]IP[facility] NURSE/CHW START WORKING WITH | | PATIENT.u160?par}z5l2j8is00ul798nl5jm0vl9{widctlpardbchcf1 GET CURRENT | | ADDRESS AND WORKING PHONE NUMBER IF COMES IN TO | | ED.}par}g9j4w9xs00gm018ll3lp6ja7{widctlpardbchcf1 These are guidelines and | | the provider should exercise clinical judgment when providing | | care.par}x7q7z0ln69gbz}x4p6l7ah14{widctlpardbchpar}x1j7v0jq39{widctlpa | | krmwdk6vgho83ex497dv2ur4em7{widctlpardbchcf1 Care | | Providerspar}q0z4b6rh99{{bkbzmejkegwmmmxvidcfyqabnelpaagomp8ajmqjwtcmxcfhxh | | lxola2dyvuzkjyuwvffecazhlo4npgktovhtxnesicikmsq8lygxxj41xqapod96dqkfjg62kdvzrp | | 86pmdkywk3lxwwooi9efwwhdc1itqvcyq3crretrbtqmiefzle3388cknuoolwmwkgixrkpanpfhbv | | etrjr0omubcrhpnabjemsufyzm6yjsuiorrlahwgsvmglqs8kzybequsqaulporqqldz3ybnfbe64 | | nfnfgt37udybsu07obuadc34ciwqyhl2qahzait1colftau0rwvzucb5gidhxehfhayybkqq8420pcg | | guravomrflwpnipbghbnbfhzwe4ymffkdfmbxxlqewekrwc4dkbycwmrpnzcrnfdfzyi4ksvyafeg | | kddfqdcjwcjc4theoko74pxtvjz94bhnlpr61zuwdfq53uyaozdh2gcktiwc8oghhdxb6azaoymr0d | | iizifgcdizbuskk9193pdwkcyllkkduprrbfqdzenusvwqof8vaxjqxvswjlvctfbyhdu0wxtjbwwd | | cotpzmsrglns6tqdegfhyzevvvwtetwvi0buqzqx63rfglgu33unfolv26hcyrmv52tsyehyh7slrw | | rrn5xeyzhbi1abjgcox6urccrctiwippyile89902wlmxjksuozxevoznaneqzbefayszx4gqlbmto | | ecparjnryecel7eooacnygfihdfcyjoxfw1rmbkobpmsshkzhshphsk4comcjf15ktugkl08cvbtuz | | 17urnyha32zdwhqwm7ndzgttd6cnqonai6ncvmymh6ixfrhmgmvxvlyihe07317v9tz6jw48fpyg | | intblqlcf1 Iiyiwhufqlbhftjpuy9mp1na06tpgoymjyfiexh9 PRC | | Zbouyvayvjghpj7bv0lm58vmhyalcyqzpuu3 | | Rwtvxwcrzxosven2co7rq04tmgxayuwrzcrs3 | | Hwueaoibyjcvp0qd8qe30jitlsildyyunp3 Service | | Txtbhvutbjgsqmntggwmfibkfwscwpkgdahppdcmhpcdvpgooinpgkgbxpdq6erjmbljqgnujqh | | qzxnur9eokvrmssygbefmnudgkx3pzgfrnkylzcucixckosj3iytftb93memsmz91qdajya19xlcks | | u31wppsuao5ddywedx2jyypbel2gqntitx3xxvbeqszvsmzyrkk1285gnqyucipurnxyjvmuxewcdg | | prbyfv5fdmmjypuynzskhdhlkdl9xpnmzsfawefqtfwgagnz4btdmgfzsbezwwydwuqku8ejnhwi68 | | pehrfe33kgcrwr06igwvkr54efcyikj7spnyadv0tkjxxew1wylcmou2dsolhdzvmbrvtbax3517rx | | hwhwoundkuxonzkhmwqzoephqak4myffwnpgjilwssrcwfpg6fjoprhyvolcpwlawjuuu1cdyolvd | | hxuxyuehcnfrl7lecqdj87desdet91veztjo04gbeiyd47hojypgi6ldyivls4kclqjwf4ygtftue6 | | htxclawypsjxpcgo3483hfrsheqmyaoihbdpmaupljmypmfgb6igshepumlxsmufjnefxl4pnrkspx | | hhhzahmpxztpa7ehakmmlfzezxbeqyydyf9nzxuso67dpbaga40iqaoow81hfzyzw69wrsggzs2eka | | qmxz1zdpqkst9jqdxfex3hvfpzxtcbbeltksq31330gpqkelvfzzeghvahrvypxkfmbemuj9qezsuzw | | pgyjbjjhehrwm7lemgintpjyodltrpzjxl9pdcgsnskyqmattnmqgwt3wylgkc34qepfic53joabi | | c05zjrvuo25dysvkpl7ryisdgo9yvztjwg7tejfanz0yqazvsxrkdsbpgeb26905y0s0z2mh12yl | | rdintblcf1 [facility] HOSPITALIVCSXEarykbcesej3u5x5lh27nlazrrmumli6 | | Primary | | Czijhhykxxvlklphfrspcwacfyscfaiahcjrdaztwtpstioghf2e8l1ha18igjzlqqvueh1 | | Current | | ccoazokrksgzcywyhghwplevwnlqsyfiyrqmqgpupiomlmygywjoird0dnrsifdglmirkzdfwxo | | q3gyktetomjcoecrbkgcan4tppifxeqojdtwrlcgqwc4aqiajn77qgjxez46uwlcmr28pdymoj13z | | tevybc5ktamiqw1fehhmaz8wmpxtpl5zkohdgxpgmxffixb2471yyogenpauqgwnonrxtqubdmoqfft | | n9sgzgqoiqneyauihgdpwv6hmyihewwojdesrdyjnae3aexaolormxeqhhbzkwzq7zkyevj71jjoa | | dq00aqynbg95uwpouu46canmcdw7bcdaumm2kxjoizd7bazkjux7ibydqphboobfjayo0310uaxfwqo | | uegwleprhuvuvtmeilbjre5uozbntvfkpgqwxajeltz1bmtklcuugltysjnqptdg6hwxdilcjiwbp | | owjrjiil3lonmyj11yrljsf02jqjayh90rejlsd71oeuoajn5hkbuqle8xhzjfgp2leincvs0yxxqs | | yficihtpblg9633ztnbvtukpizhjmhrkkihdmvktsxex7qjskgcodqnybmmcueaxz6bjvwbbqtvaxd | | cbtvdbfw5momauyxvkdzvdpsorjug7ppxlwn13qgyfcj35jxifjl07zlbang65uuwxsur6eyxgqaw8 | | nzkcxse9wfzayhe2ikdwuqipjsykjxrt60735wronqmhyzabbmbdsjkjttollpzypn4ihmheyprfaj | | siayfxush0dmtddxhmpvgemcayibot1bkntswenesgjavhfqgty4aopweq63femkdu00lgwibq28c | | btbns76eiirtzc6qckwgyh0sfbykgc2rjzdtra6xzjdgullaahknyor40411a4o7l7ld98fgfgvu | | [employer] [place] QFMOKBKBQryrqagusgc0z5a6ys96tqpdrackiyw6 Primary | | Hutzhotqgyuwmqpbsntrqrgikkwhcaji0g8z3hj17uoqlnrqsccj5 (503) | | 413-2694lfxwulfmpa4z9m5sp34orautzsceoz3 Current | | plaincellpardintblrowpard}}y9z5x1xa38pom}k9o0o8jj31{bogoxqxpxwemps8h | | jly79ws196pu6fc7hh2{widctlpardbchcf1 E.D. Visit Count (12 | | mo.)par}g4b8l0ah50{{hfhavsmrsrvdzbyzvqyijvvadazzncdnpc9iusxymidyjgsgpomthiz | | 4ufhsgsihdsfezdypfpfg3miaeogtqgqalhsngtbni5gazemi58syazrh76isjqdr19pyulmo02lw | | njdlx0gaynnft0nkautfi4shokffs4vpgpeklygtytttqk25251nshkovnihgvrismegyjsszorkriq | | k6taqljosqstuxiddtadsq7uhnoeegvmhftozswynih8rmnhkttevlumvwrzdxho2hbfumn46elix | | ss06nuygil07bhfwma51otbvvjj7ttncvcw6vigtors4cyvajyx7manhtnlupzrasszr03897b7qh | | 2ia62lgsqthaaipokd0 Btlwabnlkhfzkugrvn4mu9tx13geqhcdoriadef0 | | Grbkeziyptctwbfltlsdvhjcmoprrsnrcvawrcaksusehrwoffzrzoxlqhmeu9wdplsvyvwfutpu | | zlcxcz3eroqpsgzhfrtegfbegsy4wygcngszmikwrlhrurmv7zplxih88tvtpqq01bmqjzb59fgfi | | bs71slhniqr7kesqohm9pkegycp7nckqcpl2lzwxicxlchvrheva80644hfnukccuewklumfasjqqah | | oawfqbm1dncnfvylhauznlkpgaby5ucnxnrzidxkdpccmmusq2lvgrcjxisavfavldrjaj9xodhtw | | 00uwrxty88nvfhwz80iurijp91fmprmxm5cprxonm4pblcqib0supmamk0mwnvuvnupzheuvoq28063 | | q5w8x7wx87lqugwonjnha1 Legacy Dcacphlsvlsqznmwb0v5l0xg58fnkejavcllypa2 | | 4ysehaskmomaoubqmyotzvozrfiwzbvhubvejqtewibnkxwlvuzncqwd8tcukjxhnwvewquobok | | zg1qapljgogazualeupbmyz8xpwaddccnxawmsxfkpeg6fotemj53ekwrnj48ldvsxb30rogknm82 | | mmltcvg5oxunbch8yjykfkw1yhdymxf8kmrkclsoktjwvbvr91772cmyhuxoooxbnfntvvjpecefpjg | | mcu3eunlvdovoheqagfcayqj7bsafmnoyivchnsunepkx8ghsfypirgeyxhomjeanj9hgtdbh76jv | | dfxu37nwhmow74nkhmdr07xqdiveu2omftgat2mrrqevf9udajlgs7yqzelgttsplulykt77261o8a | | 0v8pl16hgjspoqqwsm3 [place] [place] | | Jcwshcnxbqpvfktjcc5p2c4ps26uhzqhneeqnqlo3 | | 8vosbkefylspjdmvwfmfhwuqzlrtgcybyjlzndwulcboxlidkbzlo90bjrjue6edswmkdcuxqfw | | rfoobdz1mbqtbyshqqpgrbkpnbcc5jnhmucubakcukcnwgiqp8tfuhsw83avrvxz61kiaxwc30tkp | | tdb77uivnvse1dkbwekd7dfxfxwl3jovxjjj4mzprkuowuttcjthi78404onyipsswtkhysqkzjfiir | | qcbfe28dkpgfa7ocobtrvdzqikumgdyymy7tkptingfzurkdghdpfwu2avoqixlhpzgfnxdmxnmj3 | | pmwsru66zisiik38dhngdb25thhvgs73corxvhe7mwlaspc4xerangz8zzzkmgj4tgmqpskpwwlcca | | po39702t8zv3fk99rmdljubdkqy2 Bykyvhirbnzzfxe5fn5vy36ihsyditsdiusg2 | | 57tagwazrdorqpxrlcntvnweg8ra1tjxdibynmrcyewsslbcwipjrlckfmcnmnq1leopijshtz | | zpftfojcfa6dssrpdpsihhupjyovnrj7bxubvddaubyivkktjgvq8frnupw56auxiwx78vqjqtd48 | | krmyrx37idjsoxp4vcwyrou2jefusmm1mpylkxe3cpfijqk7jghhlwoogz6chgvy36601u6p5j0pw | | 35rpcfamphrfm5xaiahxy7 Note: Visits indicate total known visits. | | szuugna6eeietuycsfqglmowmmnpsbwgu}}w0s7n4nr65qpt}z2t4n9wj35{widctlpard | | fjpy9nssp81oe552xk4fi6vm0{widctlpardbchcf1 Recent Emergency Department Visit | | | | Summarypar}i5y7u0vs22{widctlpardbch{{adlflblludcfxbocnnbitkdbbtyszcjxyq8cyd | | fufasqekmobfwacbh2saoiosoupmvjxhlbwvqe6fhtclaidesofaypcwnhj3fhuoer84qwstfd20p | | hztqq14wvoaom79xgjktbf9jbududb6sshhcum4snunuza4xhjkkwpeebkbmqvf8983smdaueiduhny | | kkfoeiabeqskzdeyh5hpyuofwlftgpcttdfqrj2heqjzjlfhfqkbqchsmif8zrtjpjxrgrhurrzmy | | gxq3yqvhfl83vgcaas44ofiavs37tqpvry88zxlpyoe8ochmchp7oiforqa7maiecie0wdpkvhrwxae | | vkrrv0909hbneemnactnaaskwomrrdvrilkjsg9zwmchkfcoimfijqhmpmg9nwkuirxiexpndqfvz | | llj4hmnavqgdxmtjbmbcbtoe9vlbiej09ezpfjs49plpahp13wkqlgs68kiikguc7egvdcky0esujt | | bs9kywsein3nhsgsbmpnkurxayn4934ncgrvzdvyxsgvfbtrnpbbjhvwkauc3vtwcndovdrjuuffgr | | upj7livbffwdznkuskhjanbp6mlultkcvrlrchevqfuzf1xhofuy45jlpfcw91jzdpkw55vnfhus13 | | sgrkdtg1vwjyldx3sesyrle8igzcnfz9naungrmckbetomdl9158qabrmzffcgibiynprmezdsondr | | ezc9nwttnwwrvmlkvtojjpob8dtzafyzxgpvxqnsyuczc3dgveilzxdvclynagrgbo0jsithy66jt | | mbbg78nnotui03gcavzl54irjlinr5rejyyny1xrinimi7vspprhs3osirzaihirehzooi9319sylse | | thshpdnslysjxgarmivhgrbp9ehtvaexskhpihzdmghvk6uflynjqeiqbjxcawyswg1usrbtijvch | | cpjnmabzqu2gqvoov07wxrvlw49emhgnu33aozcrw01onkyaor0kgdhjpg6wirdqmq4wiscqwg5auf | | tcjlnfzyaeybm9682uqiazhyxwsuacdlcoxctuvlkxrzrt5loghiwgfxpiuomidzrvz0jhqixcxvqb | | okgvudupeg2velzovsarhazquvpwlhj6zhprjr38wdrijz57zgohlm45pmvucy78lvxqiuh7defybb | | d1qvrrmjk8cjnsare6vjzeuwuyrsmlwmuc46167s7xz3ye31ebqhinmyyoygb2 Admit | | Lqlwaqkdpfisjv9vf3as64jpioyfrmqoqya3 | | Tpbwlsbdgvdibksuqv0xj0ul87vkyxdafrcfoll4 | | Eevaetukugjcdi2gv7on96mvdarfnssufos2 | | Gqzlskaugzbcvma8oh2wc53qnktktkutaors4 | | Klupvkrycakzgh4en6pl47pwmsxeeytmlnm0 Major | | Ecmtbikgzptqvc2hk0gt99nkksbblzaacdd3 Diagnoses or Chief | | Wxloycocxvrlkspidakqezzbgtlhgmtiwvknisfvzmwgapdvpdrtjxjpccxhgwct1fpufyuggjvd | | skizxeqhy2iywuozxcyzyrdtyrgibc7yddrjlcubafofnxtpfzl6rdjepp67wtxzjg20ughdgs25f | | azfmc01iujejob6ytoojeo5fudjiad5eoqquss0gzqyxgmdttycrfzt4909ctsfugvjvuchbqppxipi | | cepvpcwhp6rqbzxwesjmxvsswygonv3ascwtanyxvpmdygfwfxj1icarzqsrlwgmhpbfjxek1onup | | zg46vwbsiv54sgpyll80fglwwg92 | | aefhcmt8fbiuegu8aslixri3iolbzql2buvtogtelglvhavt0515fwqmsirteqflmmvoedugdxbvzu | | tqq1bblglltlpofwswghytbd3tgheshgviznnaqhhzzau8phyawyfawtlcqxonyibf7zabjhk28xb | | nkss30ywhpfi16gnrdyf87ffhsavc8gidchqw5srfdmwa5fowaybc4iarhjuwqcioqhnyb9747mqsbj | | lboyotljwcgwoxeyvtqkklio6axwghisxvfhnfrqvrpvl6celminpzuyobbgfglqov3bixyjoxgce | | drdzbahwpe2jbampf61ltpvpe18emdnnm19rgkmju93nrjmanj3hbboabu2vtduhqk5kfdwjkp0ygy | | njwcubucvwiat7438nkjovvosicqzjmwhesqywaslsttnr3ahdgrygtwrdvojkmazua4cmpfklkadi | | wcjogncrgu8dzwiwiwyewzrpwnqnmfi5fzngbg85jwkecg63etvaht64vwfeap22znpkvoo8igijdf | | c0tbfzqjx3wzcafho4vfbiwjzamdojesjp6728ayxqdfdjkoyqflnlxdunuuezpfhso9dvncxruxiw | | bsqafnmrjb8lamuqrhhjzlgsvjjzovu3pvmnbpykfzjkrrbbkdps4byckqe61tpyldy12oktpbe11 | | vcdenk25avioekg8fyretzr4tdaixck3xepnzyx6jznjocgorcrjapce4627zpaeaajwdygjprsgcno | | lvcrlzjpoj6ochnnfjtnspihiwmqxxg1ifjhoybdnldsqgqhnwtc9hzvxfkskzdmnuezfepcc6jsw | | ojq72ragpuq02uxfdme13bthimd44tkvtbcd3eiscujp4fktxvas9szaygtx8bbsdulpzlmuzijuf89 | | 403d2d3x9qq27oysvqjtydzntvccfrxowgw6 Aug 10, | | 6106eyvebvmlsl4r2q6yr77pvqdthigdxxvbmyvegrlyh8 [facility] | | Uqvrayoywfwepltca2x1k4mi95eesrtmlqwxsxehzyknxjub6 | | Portl.tvbbhbvmzw9f4b5iu57jljsjisuonjsufkxftvfsc2 | | QDhbmuqzjfwb4k7q7ge25zktfskjtdnxcanyzzllsko6 Emergency | | xyzvipfcsv3l5n5jk17dcelaiasbymeqafgalufmx3 Emergency | | eamnhnixmn3e9g7eq45ospcntjkxnpxlfjljjxh{tuhywvwplhxnw8axt}qltsvertaltf1 | | j1h8nm83iyqljgydbyr{xtvlgdbaabdjn2cswoe | | m1p5c9cj83jawhdiweupe{*ysuwld3dichxctm7lopflvkoa7zkhxwoi7}mw8pogiujo5ngtvv | | ttxv3j5a5kj97jrzp{yefxonaixckjeqnouxcvt9g8w9d2fu48imeih [facility]db[facility] | | {u8226 } }prkw8gb9 rl920nf0vfs805cwa0js-480{rtlch ltrchloch cf1 Panic | | Attack }qlpar}qltsvertalt{zyvhnlyvupuyn4hmpjp | | e9s3w6fj64prgcxxozsbo{*fgorfa7igexcgsc7qhfdlxyzf8ooolhvm7}pm8bjlpoes8rrurv | | rdgj8a4n9uz50oqxx{jqlhddfkkexhabpyprlke8r8f8s0al18uvisq [facility] | | {u8226 } }vchf4gq5 vk855qn1sco110swt7cm-904{rtlch ltrchloch cf1 Nausea | | with vomiting, unspecified | | }qlpar}uzwxknzlviskoaegiucktdwlwynvdhyenpaarnitnyzqifvujrblxea8mvozagkwejn | | mtqgwcjcz1bigcriubjoinijoggrhx2uqfgshlrkkwwnuwlggzj1xlmocj19vmnpdx55sieiwk35q | | mdyxp02nekldbt1mlgyuzt8rurlcbe6qfbosil2zlpylmtaetmzdzqw4826kjjwkbailqhsrwfayrvw | | dflzteebr4nzaebtaizzvxvhrgldgy8sszzvqmbfbhdbivcubgm9meuyhcqxigcajptcwlys0qddf | | gw81qzldsj41rerapb02bzebkd29dijggnp7aftbgkb5qqevwzf8qdsvory8omnjssihnlcvqfow091 | | 7hztjwsixgadcdujknsbycpcqhvpwd1prbxnwddwzemqezfiuin5lhajydhddaasendwsmsq6ueks | | mpbheoovirypqmmf8amymcv02hfzzmq93qyzres12hdjubf59cltxujg1bmdjqot7tupdiel0phzmg | | kp3pbutggkcbydrixhp7015pedsivotpsbaamkdoujbvfzfqnqoq5aimesjulqhsfeineasnr7pnga | | lngqdbvmnizoygtz3atlvhcggdkoejfgkmcdj5xwuwup12hqqqxw55ojgaju44avouer90prplofn3 | | zlxxozs5xlqzmyl6qjrsgrv6sutxfovkfbvnpipj2361fxilautoftyfdyjxxiiklvftrahvt8hqti | | nhqhsglpdlamsuyo5ansbhyczvhguvvjpiiqi0dimewdlxosdzswfjwxcd1mgyxmm59okicic82fi | | ylxo96ulmcpl66jenufuw5uyqdtgn4pmnddtq5btjpfut0ofxkbemhrjmejuca2751pgqufownhvzmo | | ictkxtslrplalfkd1ptdlseyzxavovrlfiqyb8kdxfaezkemxclybrpkof9icsdxvuqzakdcdxkmu | | oz6noglsb21qhexqh16vaolje81drpslw66aihdkiv6cosjtpk8ngmijbl4obukffo3jaefgmbrqzg | | wjkyk1342pgswjxixaadylslpfecsnwabvjpxp8xepipmtfwhokvaresfjj9fjwixqpimqubssplzm | | mb9gxeioujxenbktawqenmh9wzohwq01ppenji73dnfocd65fbttrh06zofgmsw4ynfmhwh9sabtlq | | p7yrjgmdx7oltrefkpctlnmypd11388v6u9o5dc63dlbpebrodchuosjkaqmpic8 May 27, | | 8370xpmmtsjbgm1u9x5qq04blhcuoqpwcgvznzlqmdzoh8 [facility] | | H.uiqnygjglz5g3v5mi92mmfnztjrwjmnixmnfqlbhf0 | | Pendl.wkrqijgxhl0c2q8fl32yqricddyitkgirgxfxfgmk7 | | JQamqshgndbj7f3e9wq98vnlcpnwiqenscomjyimiyf9 Emergency | | lihfdzhjct2v2a5fw15hmyhhdskapvkcxrynifquq5 Emergency | | rgnrrkvdvy3f8b0yy12zrijjwpbvzvgdvtlylvj{lvvegbkmhuznv9oqg}qltsvertaltf1 | | c5r2bc12hdzphdqtcgc{wapcpgqtpdxne8owrnq | | l9q9o5ud75lahhjstkpnq{*eaeaki5rfnchlgx2ttquzueiu6ztbqdse0}nk6teqcbbs3muecy | | cizc3i4v5oa54txmp{sssbngfmwlowjpuolwnhb1b5c6i4kj67jinvy [facility] | | {u8226 } }aeex4tn9 nk313zf2kmv158hnr0qk-828{rtlch ltrchloch cf1 Shortness | | of breath }qlpar}qltsvertalt{khwybkpzbnmii8crkgt | | k4n4n5ho74sokngtvmgip{*fsuctl5nxwralng6xdkvdpllu5gflxcfm2}jx0zjttswv7mgouz | | ndxm4f7i5le69mukq{ilhvkeswyrfhffumifkvp2f9o3y0yq48mfwbi [facility] | | {u8226 } }nacp8au2 ah052jo0uav543ezp6ii-621{rtlch ltrchloch 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 | | }qlpar}qltsvertalt{zjdrifxjkatkz5pmkpd | | b3u8j6rp49ovqcaoefaoo{*weudqv9wvkfuhwg0dnyyykzoz7estrupz8}hw8clpuffh0fgpva | | gqcu4e8v0kt68ahvq{wzikbefhhinrswhwjggzl5v1b7f8fo33toklt [facility] | | {u8226 } }bzte6fa2 ay068qo6ksr528xxp5ob-300{rtlch [facility] | | cf1 Allergy status to other antibiotic agents status | | }qlpar}qltsvertalt{vueqrfkyzzlqf5lkiso | | a7n5c6cl30vifmnliyqsg{*rxxsyi8nsqwrxod2ofypajmee9naneqso1}rx2xsdavpr8nlihl | | ofhh6n8i2ls39qrwh{eawikwgowcmtvrbasxkex1f8l1z4yb86shyvq [facility] | | {u8226 } }mcdb8iq0 oa114ik3lgr587fax6ef-454{rtlch ltr[facility] | | cf1 Allergy status to other drugs, medicaments and biological substances status | | }qlpar}qltsvertalt{rtwixsoabtwfx1ktskh | | k9v4f8ga21rntrgnfpvxy{*xabqyu1biefxkbv1ondgjnmzq5mppokmj7}wl6bhzrtqm8mrsjp | | tjkg3k9l4vz21pnnx{pfalqglojukksruzlhiof3h6p0e5vf97yvhen [facility] | | {u8226 } }apqi3fz4 go137of1qoe465rcx3fy-026{rtlch ltrchloch 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 }qlpar}qltsvertalt{sjvyfmyashsou1rxzqh | | x1c2p2rj45xtyjhdrazdn{*afrgiu2cikjjqqp7ldrwwmczx7iffqkso5}cn7bultser2pjvtn | | epyl8c6u5nz90clzf{drhhozoyzofyasygbkkqd1x5b1i5wd55flrjw [facility] | | {u8226 } }mxqd0ms7 ln164jo3gwf973uar4ob-132{rtlch [facility] | | cf1 Nicotine dependence, unspecified, uncomplicated | | }qlpar}qltsvertalt{onsstrdrjmhhg8ozqac | | b5c4t5af62bgrvrrdoqhk{*bqdbla8auhrywfs4cpfxbfwpb9jafcxdj8}sx2vgwmrvz0mysnb | | kkoe6p4f1dc28gkkc{aolencnlmzpsaeisueloz4z5o9f4zm28xaffp [facility] | | {u8226 } }cvcf7km4 mk615lq6gbq622rib5nx-423{rtlch [facility] | | cf1 Allergy status to narcotic agent status | | }qlpar}mrqtngrkqpyyftiyslwclyxlhysgsdehfmuasufivnvyjwqnuiprspp3bbujevdreiv | | lyaeflbum3iyxahkytalzstcripkgd0nlnmuiekzwizdfsbmflw5ilbtrz16kwslsb53xgtpkq99j | | hvyrf99ynpwigk9spanedi3idpdckd0bzpfdpk0weuabgmzhqvzaldi0391moxftmytbnkubehnelqv | | luetnegci8wzodsmodtsbxqxtdvxmm6fvvsyessiqanhefkqpec2cbpmvnvjegshndjhutoi1kyjl | | wb26dguhbd01eukyxa33mlmrns27sovwfkg4ynfpiuv9otdtxpj4fagqlsm4glinbxanrqdnpysl507 | | 9hfjymgdpkwbqfkfnntfnhoiitzcax5ishmespbavjcbvtflcor1xswnkxufbvumcgliwkvy1nkso | | zygmzmtotqiwjukt7rjflel04ewrcqz19oldfjo22zdyomh40emxqxag4ryrtrfz1sonouzv3hixxs | | at7nvzamalufixsufki9253jqymryqzoydsnvjvgfknaigacjctf7oavmeqrpugdksjjsgjxd1ifid | | fnbuojlgmsmacmva8jornyqsvxrwqezphrszz2yvbcud48tkfgtc85rmosvc35picabg76zmokyox3 | | rtldgvo0uztipxd0nxuzrfo9upisuxezbfhnqmlo3134iefgrgfbszdpspdcnisjrwwavvalk2rucv | | ixxfifhkvajhxjer3gcabgiuwxwzkdgvhvypi1hppnwwqpnbdblocqydne6tsiocw31jkcxzz22ej | | vmdu56qttkuh90mrlvrkt7rrabadz0qzmeloo6lzmkmgs8eyurrdzwzqjeytrd6119iogqklzhkkste | | vvyxgtdcksqeqclk0qxzofqljmikpwtxtaetj2zhtetnctsuaabmsmdifp5dvhkgtyilrzqqnaqwu | | tb1olyrua15zsrhqc78otfhqv56hhbdte94wiyuswq9sghikay5pamtfba7jribvno7yyceygnpdls | | quggm9073ciifoedcxyfjyaokzxilujryfqskg1uuintpcecjxwtfnpqihx0koatsolpacoernzlap | | xt4ywtweubqoaqkcjjphwzq0redbin76oxmfxg45mnzkmx29hjpdfd62rhynajv0tijmzrs3eklyrl | | f2trwglyz3yiainlhffeeparpm65725b4q1i0ne41dxptujubvbgjqvfdgxihut5 May 24, | | 2324xwytvdmiep0b0x1uz98fczqhvltikcucjrauzfuiw3 [facility] | | H.rqpnzcfzyy3b5p5dm92emaxaiucbvwmgkdsraecze5 | | Pendl.mvhqkysxuz3z7f8hs30lgklinnokrfseitavsxysb9 | | FSwrkwemivwc0c6b6qz76epxabfounzrvxbvrubakja2 Emergency | | gfqrubyeuv6t0w5fd86qmunnnpizfaeufvgthjsui2 Emergency | | jlgdozzitu4a6k5rm65joxumerpgzhherpsumqq{xewodlewvvorb2rsr}qltsvertaltf1 | | q6g5nd65nrgufrhthxe{grkhijyiczyzl8oacch | | a5v2x5jp34pvpawvxtkgu{*iusdhm3petwhdhv6hellsvuit7qythpaw2}vv6hhjzqxc1hdpxv | | ywjl2k7t7bx08shnn{srmqtjdklgiovnldhyhep2l3e3s5cn11ygicu [facility] | | {u8226 } }dvwl8im5 da264vv3uqg886zxd9af-826{rtlch ltrchloch cf1 Nausea | | with vomiting, unspecified }qlpar}qltsvertalt{ifunjbneuvrze0cnjdh | | x5u0o5lp17zcyfypkjspj{*ynvitk3oaanzvvn4yblayheoz0nklubkn2}az4nmedbmn3qsgdg | | umtk7r2d7ni15fthw{hnxfaawcmjmeoqmyvtuen4l6u9h2gg08fdown [facility] | | {u8226 } }ckrh4xk4 zj905hc1vxm351wea3qj-561{rtlch [facility] | | cf1 Anxiety disorder, unspecified }qlpar}qltsvertalt{vzejhviyinkte8bbuan | | d3l8q6ht69mmppkiklpeh{*djkkra1dchukmbv6smeybkzor0zuhdgyn1}gw4akmrlmy6bvnoc | | pnlq5u2z7qh52qopk{mjxemdobznbuobqssmgai1b2p1x9uw34mdsbb [facility] | | {u8226 } }aeev8mh1 nt013ea1ldp494irh8hc-467{rtlch ltrchloch cf1 Acute | | upper respiratory infection, unspecified }qlpar}qltsvertalt{bnuhmoeyxuicp7zbvae | | m1f6v5xw42iqimebbsmlp{*wkqvhf3mxijcusz7zcfdqnahg3gjxxisj0}et8ykneedm3nwyol | | szvo5z1f6mc13ajaj{cbteikjlbjzkvbypjoqpk7g8k0j1eh14kxekx [facility] | | {u8226 } }rrwh3gp8 vs080ct6ryy345bqz7ze-533{rtlch ltr[facility]loch | | cf1 Allergy status to other drugs, medicaments and biological substances status | | }qlpar}qltsvertalt{wrwtewvubxpza5wioek | | d6h6i4qp27yzwbchulopr{*rdzjuy7pqfpguuq7fjioiavhq0sptqchj2}vv2cnamepu8pqycq | | smyh0d1w2qr87swjx{qescrwifhgeaddsdtgzlt3l1t1o0hy86mnaga [facility] | | {u8226 } }nwcm8yk0 xr678mh1vqq187owq6kf-400{rtlch [facility]loch | | cf1 Allergy status to narcotic agent status | | }qlpar}qltsvertalt{nqbdnjvrciykv6vnyed | | v7w2s2hl49gubwngpzimz{*tcjkur3mrqmgahr2wbrleyzqu9lgmkzfe3}ys5oukaczy3htizd | | yoyb4u1v1sa67zmoa{lioezinegxfeycxcfhcbm0d3l4o0vx76pyzsu [facility] | | {u8226 } }zaxq5jf6 kt464zz5rdq163hsn7cq-135{rtlch l[facility]loch | | cf1 Allergy status to other antibiotic agents status | | }qlpar}qltsvertalt{lqzdlayngyxtv5aibmt | | x1k9j8xd09enpcmnatxkf{*ngglpx4mszkvenr6rfwyrovds8mttfrpq7}qj6jpimeid8uvjkr | | thob6x4l5eo43caob{vqdxyefeyvgfunbblugvu1e6r6n8oo87iegsc [facility] | | {u8226 } }opfn3uz3 yu609ck0luh758wuo5mv-913{rtlch [facility] | | cf1 Nicotine dependence, unspecified, uncomplicated | | }qlpar}gmqnqvyufwtynvewpooedmyztcbixysxqmcpwoxvjtvtqbhibnnorgi8mzkjgpmoodc | | xlqajbcba5ppizieudbewidutibmbt3duokbxisnltoqapwixej7xfjfnr45niybes28bxnkeg76x | | ysmkb11wqwiltg0bmhfclq5elhvggp8jfupavh1etiwzqxnslergavr2536rpfnibxtixchwxgvfhbb | | xzrnkkvbr6abvdceukgdndiwgykswj0jlpenwaegudqsnxxchfh3ocyxauupohwzvagefpyz7igin | | hm88lstjcr56etkges26qlgubx89cqnrpcr1zenvcyd5xjmekgl9inmwebx5ttirrzivclbecrmn775 | | 8gotwrmtuajjpuzlobzlgbdidmrgkg2mumfnzclqfiueihdmtew0kbqirqhpleclstmprlgr2wryt | | kfxgfegboemyurye6exyahh01iotpic51lsbtmb03rgqavn95ayghmuz0igrokup3wwnegym2homta | | zr1zlzecunvezjpxbqr5669qsathtlhwjnpgftqpijmwemejchrm8pwctkzwllkqhnmqcjfzj7ryfl | | bmeigzpuuvybfrwr5pzedxzcdaovowecqdoea0bsbznq70wdbuum00echgjy54uqorvp09bebkxkz1 | | yjsytgb5llqsbme2anhqavv2prsxsvwbqvrhfhoc6965brsapotbhwzclbqdnkxtxcpyyjbou0pknv | | jwihjtcgjyaqnnxb0jfiyqfitianxtapslfnb1saxqeowvexdndnxkwujj1glcpxr68xjxszt79ol | | icth40xgcned32aozbkdz9vvezisq7dfladgs2knkbppz4rvwqeogmvvpzvqqs0025ibmlhzkucbsty | | webddavqvhyicuoo7adarzapntotlzcmjeewi0wygjjbujnizebouwajgd2jpelptgxlqgfdxuexm | | pq9bkmkdk83dlntiz08pjetta54hafjuu42qvulqhb6kpilhxr3mvwxelt3hrgeljv6ffkjkfgcsqb | | wkxqh7917njcwabpzohcznfaolyoxacuitrofc1jvdbfblaoovymphzbjkr0rvkwzvmyfbkmrwlobx | | kg1ulgqxvvjmaztwooucmza5xownux89eopdnh84imvsou95lkemho67oxmrjbu2xbqwmru1ttnqtb | | s9nyibjkm9cefrftedivjyfudp42663w5n5l8vi80ceishqgrxeenllgygfhksz0 May 15, | | 5641bajpquwwex6d0o5th09urateclnalbewdxvrczjle0 [facility] | | H.kxuyekexsh2d9b3pp30frsegmuastklsohfttgniv4 | | Pendl.mvcqpczxdn9o3y3xe50dtmghvxmqyupzehlzartsk4 | | BRqtrlvsazze0k4w1lt83etywwpiwlanvvopygriddt6 Emergency | | gloacbirmw1o7z3yj01iayfpnzjzzphspgcorjqtn1 Emergency | | tvnilnacuw2v5v4uj12dlcploplxhwcavwmpbss{rtbaeqoagzbfk4rua}qltsvertaltf1 | | m0j9vr53blokzavluze{hnznamylznzxr5ixfqj | | o8k5d4mc69qrylkuifosq{*nhdyrk3vttvjnzx1hpjdcyskk5qytoenh3}ga8hexmjuo2lajgh | | oyzt1w4r4ko23nney{dnejtlhinyhrchixkbgul8e5h6j8fh89qotte [facility] | | {u8226 } }omuk3rp9 az321wp5ewy789mbg4kb-641{rtlch ltrchloch cf1 Cyclical | | vomiting, not intractable }qlpar}qltsvertalt{loqjarlvcrnfw3giqls | | o2l8k3ll82gehpqroembq{*kybajq3hbpvscmo4ensnnspbm5riskuba8}xm6jyeqyof8hwwgx | | cssx9e1r2ht36hbhm{ifdhbkxvdtfuniztfnpyz9w0c2q1ly20pxdli [facility] | | {u8226 } }hrhu2wb2 aw064iw5otn418djf3hs-334{rtlch ltrchloch cf1 Nausea | | with vomiting, unspecified }qlpar}qltsvertalt{wyotblwujtjmz3ryveg | | v6c6r4yg03xphavudchna{*veskok6ywllsjub3juxnivvll9hrztouv8}ni3prxwknx5aqvkd | | tfwy5q2f5pf67wwgo{uqdyehsjgpvticdusqtbo0x1i0r9kg64nhwic [facility] | | {u8226 } }mmft9bd8 yc096xd8kow855lje3lt-465{rtlch [facility]loch | | cf1 Nicotine dependence, unspecified, uncomplicated | | }qlpar}qltsvertalt{zvcmopkkquacr7qzzcw | | s5c3e0nr92qbhemhhvzuo{*orljng2pdvjadtw7fbohotuit0cozqebn9}sc0umtgadg8shdef | | kdpg5f1m5yt73qdsz{noekejytnzmsaxvwyimxi6w8l1m1jt29wtzkt [facility] | | {u8226 } }ozss1wj3 zx522he4hiw866vue4fa-403{rtlch [facility]loch | | cf1 Allergy status to narcotic agent status | | }qlpar}qltsvertalt{hdhilfgqmtzdo9ugruu | | h3y2c9dc71ntzoquepbhn{*xbkjzg1vmsabekw3aeoksineu1fxjfies0}vw4nkomvjh5oahjp | | zeki5r5t5tr35ghlv{phuijcltosxtolvzkuewk1e0h9u3ql19xlljh [facility] | | {u8226 } }apfs5zi6 em399es4utl309anl0yh-977{rtlch ltrchloch | | cf1 Allergy status to other antibiotic agents status | | }qlpar}qltsvertalt{aykkqymeepmos5bqfqm | | o4c6e1jr74tuuyspewzxb{*vohsae8rjdpoeex4xxbgkfmfi1lhmqvur0}ey9cfududn0gdprp | | dtqo6m1b6uo33onmi{quuejlbdflhrviacpidjg3a6z5e4fq50ehkai [facility] | | {u8226 } }dymk7we0 ye742ze6rlu077hvm1kh-423{rtlch [facility] | | cf1 Allergy status to other drugs, medicaments and biological substances status | | }qlpar}rwqoselyksduchitsgpujkbffgltenpflrbpcrjkygmdbqmmmuqioxb3goabwvrqppg | | svaugwrvu3wrhxwliyvyhghvlwdjfc9pbksxynmyqpjsifcduux0sijrgq33kqillo86flatjz95d | | glcmu88joqixuu2tbkgclj4csmxnpa5ycoftry7ytvdcghomqpgphgz7375oeszykpuzsepqsflejvk | | tkidxztkj6oiaydxlnjrdydcntnvcc7fiaeaspufegunxuviaru2ogbamsjnlbvupwriacwa1wcyt | | kr70jofhwh62sexzpt53bwsckm05wrvjznu0qrbvqla0aprhmrm7mmlbuqh2mneksqgtixvbqmuo094 | | 3obyxsyvfzarmjtmimjmkkdecvpfgc4ehjguavgudkxncwfscnw3nlihaihshkdglzzcsiiz9fswe | | riabujrcwzyyehen7xpnnvo22sbyggb17yrxkjs30xwuctp82dictdyl2omhseoi2vplvtmc7ohihm | | cf7fotdacctgfmnxrfp2997wmofawzburwbauzpwrhpyiegwwesl5eghvgdlbbfnndnhjtyoc2hmhz | | essgzbiljbhwfnwu4ifkdnkfmljewyxnyjofn4xqffhq37inprpk90rcvxea21mhepdj28kbhxwsj5 | | yjboufw6tcxcais1nzhrswk1xmajkfzafbbylifk4213vupuhknnnrsxvxbqjejeuucedpyzi6iujy | | wdkzensrodwheznv4vbgmalhsygodzcdmtnru9vcojysvpvwrdithloxou8wljazx06ycynil62xm | | wahm79zlevbj47brpgiay9xsobvvb7cvhkwud4dybyetr5qrdypqlbgondqyxg2902ffpqbojittevy | | kzeohdforoatgffb1pdjvokqvklxwvfnegdxr5uyshczdadbhsxbulgjll7kivldagkrkuatalxtg | | ng5myokkj46lgpdsi18zhckfv22huhsul86rrptvmf5jblqsta3pmescup1obbjuwa2mwvihljpsfl | | ayrxu7515skvsxjpcxjgnqoixpaawznnsojwng2hlcqaltszxunhhrohcmz2vmyenhtzhhwiqifzlb | | jo3snzieqdggqosyfvdkllb3zjwzca38ycxxsb05hhjszh89mufhjj07malsfrz0uxituac1iylkyo | | t6xhxzcvu4thidftubnujqfidv47810z8x0s2kj02opkjkpzhhmmtzvamjxdxxg3 [facility] 26, | | 7816eyiopbufwy8m8d4uo66xikbudcyzbmfqcxocwkgda5 [facility] | | H.obcwbxpklz6v8l0pk67tmhbxbxfzhvpnavdmaunsy0 | | Pendl.qwglfxycdm8l5p0tq47jowvrjeavtkmqlxowwycrj4 | | SRwytfhvwuan9w7h8nv73ecfarxfewivcslzqoikccr3 Emergency | | bxrxsssmma6y4g4pr93oqjqvanruzleviahongwrh9 Emergency | | thdgicgfps8o8g0mi78vpbjutwijspnbzstwlfu{rfotwwghrgnzp3erq}qltsvertaltf1 | | x6j3wu28gxdmwkvntxo{zzrwvdwacpdvc8szagr | | k7j5p1dj39hlzhrzgemao{*ugldnr1hwkhvekc7hnkbsgbtc9ujbpcnn5}wv6ujlerco0xieku | | qqnk5q8f4ft90qsbm{oniavkijzephrtswktbnh9m8y4e8qp83vylti hichdbchloch | | {u8226 } }fcgk5kr6 ym821md2jxo967qwq4ap-248{rtlch ltrchloch cf1 OTHER | | SPECIFIED DISORDERS OF TEETH AND SUPPORTING | | }qlpar}qltsvertalt{uiwhrghrzqhub1rxize | | i6s7k0ji57horwqkuhvqh{*xjmyvf8orzpezpg2ycvxfknwl1rtxnjvl2}hd8nxnztao2xsqeg | | cjvl3f3m2tu91gpor{yrlgghadwsezvfftebvne1o0z7h8um74jqiub hichdbchloch | | {u8226 } }byam0xt9 od156gk1hlw827itp9em-200{rtlch ltrchloch cf1 Rash | | and other nonspecific skin eruption }qlpar}qltsvertalt{svhqtwcutullf9llywz | | m2m9q1yy27xprzmwleegl{*ycmlrh2mwznyaaa1fnuvcegns0oakcieo3}gq6xqmrneb1wfssv | | obbd8r6p2uf60wrvu{qnbkyyefusfxbvfaqewbt9j3h0q4wn01tgyrd hichdbchloch | | {u8226 } }xxly2xg3 na915yw0lru097wsz5mt-537{rtlch ltrchloch | | cf1 Nicotine dependence, unspecified, uncomplicated | | }qlpar}qltsvertalt{nurzwzvjouqvq0aanho | | n9d5j7ma83pyrhqbjrybv{*sadrgx7xqxyugll1suhoqcbbh0rsuugex1}sp8ixnwesl0jhikz | | lxke0i3c7fu26jdng{anvdecjzpwxbktjacvzjr0n4i5p9hg51xehca hichdbchloch | | {u8226 } }felr6fj6 du918xi5mig579vse3jh-042{rtlch ltrchloch | | cf1 Anxiety disorder, unspecified }qlpar}qltsvertalt{encyfiynpgswi9hzdcm | | j7l3l5hh57kzirnlybxcb{*efnkoh6bzccdyft0sglbosxgs1zdgvtdc6}vj6mngqdkc3uouud | | fibu2l9a8ek17zqds{xdbkpbuiydgfxsoiotamv0k1p3w6ud69zwppl hichdbchloch | | {u8226 } }kpqv9iy2 xx010vw8akg153hmx2ku-954{rtlch ltrchloch | | cf1 Adverse effect of other systemic antibiotics, initial encounter | | }qlpar}zgmktyioonkxwzbpefjxqwmmlryscpwydmxhndeihegcsclvwdalxcv0apftyhajlty | | savndtkvx6byoivqiwkpkfibmbelzj9kntgjgqavzfpwgvtkzvr6pxlgnl12ukfgev08flsrwe92j | | gpqau37ijdshjt9auspcty1hpoduhu0xrslymh0zoyvytdkaahuulbp8637fxzlmtxxxrszylzzvqqr | | uobpawtgb7fdwentqamgbbgdzjycff5rtxdpiazaoiqzrscleay7eqjtejesyhzvryrvfget0efwq | | zv06iaiagn79vtemyn00zipykd05shjpuoa6lgkcchk2uvndimt3iymoxta1qtoodlymeqlqvyah960 | | 9hunczaokpkgmqrhudixgreevuhfgf3zuxhonoitkphanisiero9fdomgztqgzdoqgsqkgnu1tyki | | bobbdecagmfooavu0qvwhqi04arlgoa22xkfcgo31syxxod94xryquaf5osniwbr7xawqvsx1nuzxw | | ux3afcfeijcxkiijziu1703fszasfrcsercenecclhtufijxviku5qwstzkocgrcdfkbtyrfd8plik | | kxepqlgjfasgjmhy9jpedptrmhvtnhkzetqjj4huhkun79faslzy85mfkhet10oyipfn79ayeclap3 | | ooiwswd2mcvteqc0fvxpnmj5kylumscznxjpiyvf9581bjnpgsedyhgqlyigoqgfzzagwunyn5aowa | | vyvhvrscvaqjrtcu9yxzristbhjzfirfgnhqb6wlnmxxwtecvywyolbeaq8hujxfe33nzwwxd59tx | | kcwp08jqnrko39shjpdro5wytazwh3bwafulj7itbjftk6pzgxczlfmgvbsxqp1518tcmogfwvrtlir | | iadqymuejfqicwuz6gsdxinhdjtdngrgmwtoe5epsyjuzvhifxhwiwhksm6nxvrxtsfcuinhxaxzk | | yu9wcstob71xrlafo38nkfrtx82cwfbxc12ixlhiqj7ggsnzom5pvuwped8eylovjr0qmbkjcuxugq | | svmwc4234flehuknvpwunindfvoooyjywtaadj6agtmgwuzqinbaotdwcnc8rwmyyxkgfgeqwghbga | | am7ohqpwanjyvlmsyizvwrl8auhqrm49eeirdx24bzckhw06kacjgh61lqbwtxb5egsukjt2deyxmh | | z8xptkzba7ikzdignmelwrmouq23355y8f0d8zz44xkbxemcnwzaqhutylybqwi6 [facility] 26, | | 0012scfxdecpcc4x3f0tu23ukjquhtgfvlbqvlsavgrkb7 [facility] | | H.ukjkvpdiuz4t0m4aa48rcfnwpxlkxhkbphfrgzewp3 | | Pendl.mjligddweg6f8o0cb28jmyykhrbxxuxfvpmepngwh5 | | ZSlzjrmttkjq0k0u6yi96fhwqjcwoindovvhgfeuujn6 Emergency | | gjvmokxwix7w7w4et85jtujwfrrcucohlkcdawvmh6 Emergency | | suvebqahzw1s3u2le08hzecyuhvmadjnijhieif{wvkxgczpukbjb8oru}qltsvertaltf1 | | d9l5bp34vtdocrsqgdb{ekpacgasqnbhi4yqmip | | v2m6q2pr35eweynznzuql{*kjzlzp4gqdeawyo7yafzdtndi5lzczike1}dk4xvglurb6iaouk | | lane8b2c5rp36tfmj{pzyszysqrwkawsndhzohr1v4o7r8rf96bhoyd hichdbchloch | | {u8226 } }fndo8tm1 jf585gw6epq255rlw3pn-321{rtlch ltrchloch cf1 OTHER | | SPECIFIED DISORDERS OF TEETH AND SUPPORTING STRUCTURES | | }qlpar}qltsvertalt{lhsbvhcsqpjtg5egvij | | m5v7n8kh34jmtmswfqvnb{*ttnszp3icnvxhxq0vuystuucy3ctsleif1}pq6wmtqyki7tzvfh | | qumi2b0z2ua74woes{uchvcjknhwqsixyntopwu8c9i2r7eg48zuahz hichdbchloch | | {u8226 } }uhfx6dx7 qb176mq6euk465mui9fs-895{rtlch ltrchloch | | cf1 Anxiety disorder, unspecified }qlpar}qltsvertalt{udncbxxqrgcga9rknwe | | x2y2j0vc63tygdychqwyj{*vllaaz8ynoducur9aiwbcztik3sawhqpv8}ni3znqrgfi9hhpuz | | exax6o6b5qj54gqek{nskgeelhucxpwrorrlmzz6y4z7u4wp01phecu hichdbchloch | | {u8226 } }uluo7ch4 fi095it1doo434pha2qd-590{rtlch ltrchloch | | cf1 Allergy status to other antibiotic agents status | | }qlpar}qltsvertalt{qlkxdujxrepee0jnxxy | | l3r6k4ux35omigymkjxeu{*avrhal7kzjiqgrb1qjrbtsmct9izljboc1}kl4jsqgbzp4fpbsu | | youf9o3e3xz75spgq{etvobtragyrnoeaaqiglf9i5t0m6na46ehcwg hichdbchloch | | {u8226 } }nxxj0pm6 db294cz3pka529cfi5bi-476{rtlch ltrchloch | | cf1 Allergy status to narcotic agent status | | }qlpar}qltsvertalt{ewkfnfkupljnr2exgfh | | k7z3k6vw40qldilwdzipn{*jktwvl9zxspksaj9jdgfljxow3bcyocsr1}kp3rtnomia2tdfzp | | ddrc5z9o8by73blha{xxxghvbvprsvoxfriqnsa6j6g6t8tz87samng hichdbchloch | | {u8226 } }czco6hz6 bk561ys5skg473spw2vu-604{rtlch ltrchloch | | cf1 Nicotine dependence, unspecified, uncomplicated | | }qlpar}qltsvertalt{ncvlbixmtmscx2tuttk | | f5e9n8qa39cyctzcxsfdo{*mxzxya4jlppyykc0hrtpsuuar5axnejlh9}aw5uejmrtw6mfnad | | ffkz4d2s6wq03wpol{cjxpucotlzhwqkwitumbp9w7q0g8mj81syorf hichdbchloch | | {u8226 } }zxap0sd6 sf939wk6wfq017nlf1eb-897{rtlch ltrchloch | | cf1 Allergy status to other drugs, medicaments and biological substances status | | }qlpar}kcwpyybwgginpoohkvsaxvxtadrjvjbdercorzlsqqiebjtxyewnwla6wvaocvrcekq | | zubrxjvoo4xssuqzrixivsfyxbncah0dkbzybpouqcpotlrbhdd9ottypy59txtbgm19rzkvtc09k | | ekcuc41alhzqwx9yedhzwt3yvnqqus8ajmyadd0unzfvekrioafcckg0554xslcmzmrmxfxgsxokrwd | | rmfivwrvh0urrgqsxhxnyqbqvtiamd7ftxslvnymcfvtshqzffj7gvmjblrxynmtsbtfhhtt9vmhw | | av43npxppn43fwewra16uwyefz65avmvmpz1dpixkel2nbouqar2zhegjhc8qzkbgucteqjxsegy533 | | 1grcqebubmtyrhakliaepsogytdbvp1wyfaxmhvqwbnwulihnkt5bqgkinyyvmissyyhewhn4wosi | | cjkhnvpuskmroxes9foldkf70ljgvxl20pebzao51ywixjr98fjrkdtm1cvbsidu4hsnascm0nqkge | | mw5ytruzemccvcjvgvd6729bkhrmhsgoylvfinqwhoujnsttygbu3srcidqrfqkribhlkwjqe5dhjo | | ikjwxlxlcbtyyone7suebyedvjcroyzpqhggm5qbymdu45szydog93zjcvri55gzitej10foblvlt5 | | rojvipf7deszmts8qkmstaz7cieyxpkqkepykkkg5596nlrqhdxwdvzpomutwjqqymlwkvdpj1yivl | | bdmsomkolxzudusb6qgxkxfxtksaaojamuons9ellenrploadtlzvhflqe0knkdab34xxoqcy82ju | | qhfd66mmbazj07vkhraas7gaxjrbq5pibxcez3pewiumc0qejqvhlczmhbizmg5863qatvsinlhxvwn | | zjqguerpahozxojb3pifjffeqnianlhvqkogf1ozzzokdbtqvlayigklqk8mbbjpztqrocmxujvag | | um3tlqjkz89eozors87xnrqjj26lzpyni03hdfgkpg8hgugfbz9teflwet3vtmzrhp1sygjnpiezda | | jorea0546bpahbwdfazcdusiqddrkqpjvlzscy1uvjnswuhppozomzyiglq9lacurccwxgqbukwity | | hl5qxdnuvehjzxioxstkepa9ayrfji91gubgjj49wqplkf31wwsssw12fohfbuc6ctifsgh9imqzud | | i0wvmnjbr0gpmxquirgdcfviex60600i0f3x5vo13mcpuusydiflmfcshjyzoas8 [facility] 7, | | 0332jjaglburwp1o7p8xy80tzijxwltzxjcvcxryxayxq5 [facility] | | H.sxgnpeggiv9r1k9dv09yfalrigltrriznnmnopeil2 | | Pendl.mptmmmqcov7x6m6vd43abakntabpcrpvcdgldkgql7 | | XFvftadbbiir9x8d7au96madogaruytyakikpnzzhxc7 Emergency | | crklrfmjif1w8t7hk61ucuxpivenwvqvqxloelczp6 Emergency | | qqmfuhnjsz3a3j3ge60tgonhjkpmabahmbnppga{zdlwnfhjryybf2ilv}qltsvertaltf1 | | d8n8hq94tbogkjtvlhw{afnjdnbwusbqy7ffksk | | d0y8h0vi41wqciyelmtvz{*dgnhoc5qlznuiqy3ulmgmmegl8zeaknzd2}eb7oyfhxsl1leodu | | idea1e1s9sf39kfkk{mmjomoyfrnaakcdpltjom9f2i9f3dp30epjmx hichdbchloch | | {u8226 } }ovou7ik3 zh563ro2gss533fmv3rq-071{rtlch ltrchloch cf1 Allergy | | status to other antibiotic agents status }qlpar}qltsvertalt{grxsncfhidoxe2qbxwy | | u3w5j4eu06vncpwxnjdtb{*fpyrje9wfejswah3rbfmudsoq6sgbmoic7}nx1iiqmkee1beydt | | jofe8n8q5qa30mpjo{fweuyvxqdhtuprteefokt6q7c9p2ji58jobds hichdbchloch | | {u8226 } }jtce1xv0 vu677wk4tjc288hnb0jl-371{rtlch ltrchloch cf | | 1 Noninfective gastroenteritis and colitis, unspecified | | }qlpar}qltsvertalt{rhhdltaqetagt3ynofe | | d6a0m3ku36tmjfuwrogyj{*zqdoqh3zupmeolm6zsadnokal6ivvnuxj0}pu1nyeojmi4uckrb | | vybi5d2f9qh67wvlh{zyappklilkmmnplpcttqb8u0q7h3ng19oorxx hichdbchloch | | {u8226 } }rpxx3lt0 ic377me0peu607zxt2sd-428{rtlch ltrchloch 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 | | }qlpar}qltsvertalt{qeyxyytieigvp3aqiyh | | k1q7a7pf30pmvmgowsyyp{*ugznie9sckotxeq8berpuhnzr3cxyyowu4}kw1csblnhs9xofpb | | dlon5g2n5ov70laov{twuhnsuhqypwwuwoqtatk3s8v3r5xm67cdxug hichdbchloch | | {u8226 } }biax3mj9 fx508qs5mqs498qew7bh-402{rtlch ltrchloch | | cf1 Anxiety disorder, unspecified }qlpar}qltsvertalt{hkldtuxvmdefj7eyqax | | k8x0k2nw75hhohsozvufh{*obtqkp5uasjdbtj5qujpphwtj9xwkfjms6}eh7nnnrcdf7olffk | | jvmp0i5x9fq62nogn{xaphmeglbdpeavbfrzbuv2u8m9v6hz50oadwa hichdbchloch | | {u8226 } }hhpm1eq3 by674go8xlo543zpc9ye-666{rtlch ltrchloch | | cf1 Allergy status to other drugs, medicaments and biological substances status | | }qlpar}qltsvertalt{orjtrnyuhajec5tsflk | | t3z8o1tc23bmlisjzpffc{*jojbee6lizdbbye8ubqnpgcwc9ilhevhj0}bg7thqixgt7svmtu | | bchf1i | + + U [...] | Urine | [facility] [address] [facility] | | | [place] [address] | + + + _POCT U Dipstick [...] + + + + | U Spec [place] POCI | 1.020 | <1.030 | + [...] + + | Urine | [facility] [address] [place] [address] | | | [place] [address] | + + + CBC with Auto [...] + + + + | Auto % [place] | 2.6 | 0.0 - 12.0 % [...] + + + + | Auto ABS [place] | 0.44 | 0.00 - 1.20 x10'3/uL [...] + + | Blood | [place] [address] | + + + Comprehensive Metabolic Panel [...] + + | Blood | [place] [address] | + + + from Last 3 [...] MODA ODS MNGD MCAID | [place] | [id number] | Medica | [phone] | [address] | | | MODA | | id | [id number] | [place], [place] | | | ODS | | | | [phone] | + +--------+ +--------+ + + + [...] | 1990 | [phone] | [place] [address] | | | [place] | | | 0000 | | + +--------+ +--------+ + + Advance Directives Patient has advance directives. For more information, please contact:[address] [place] [address]
[2017-08-24] MEDS ORDERED: ZOFRAN ODT4 MG PO (04:12)
== END 2017-08-24 05:22 | disposition home or self-care (01) ==
LOC: ED 01:36
DX: K29.70 Gastritis, unspecified, without bleeding (principal); F41.9 Anxiety disorder, unspecified; F17.200 Nicotine dependence, unspecified, uncomplicated; Z88.1 Allergy status to other antibiotic agents; Z88.5 Allergy status to narcotic agent; Z88.8 Allergy status to other drugs, medicaments and biological substances; Z79.899 Other long term (current) drug therapy
CPT/HCPCS: 71046; 80053; 81001; 83690; 84703; 85025; 96374; 96375; 96376; 99283; J2405; J7030

== ENCOUNTER 2017-09-11 21:05 | Emergency (ER) | payer OTHER ==
[~2017-09-11] VITALS: Ht 160 cm; Wt 74.9 kg
== END 2017-09-12 01:46 | disposition home or self-care (01) ==
LOC: ED 21:05
DX: F41.0 Panic disorder [episodic paroxysmal anxiety] (principal); F17.200 Nicotine dependence, unspecified, uncomplicated; Z88.1 Allergy status to other antibiotic agents; Z88.5 Allergy status to narcotic agent; Z88.8 Allergy status to other drugs, medicaments and biological substances
CPT/HCPCS: 71045; 80053; 81001; 84703; 85025; 96374; 96375; 99283; J1200; J2405; J7030

== ENCOUNTER 2017-09-23 12:54 | Emergency (ER) | payer OTHER ==
[~2017-09-23] VITALS: Ht 160 cm; Wt 74.9 kg
[2017-09-23] MEDS ORDERED: ONDANSETRON ODT8 MG PO (15:08)
[2017-09-23] MEDS ORDERED: XANAX0.5 MG PO (15:08)
== END 2017-09-23 15:17 | disposition home or self-care (01) ==
LOC: ED 12:54
DX: F41.9 Anxiety disorder, unspecified (principal); F17.200 Nicotine dependence, unspecified, uncomplicated; Z88.1 Allergy status to other antibiotic agents; Z88.5 Allergy status to narcotic agent; Z88.8 Allergy status to other drugs, medicaments and biological substances
CPT/HCPCS: 85025; 96374; 96375; 99283; J2060; J2405; J7040

== ENCOUNTER 2017-11-07 07:25 | Emergency (ER) | payer OTHER ==
[~2017-11-07] VITALS: Ht 160 cm; Wt 74.9 kg
--- NOTE | 2017-11-07 08:21 | NUR ---
CHW met with patient in ED room#4 and discussed with patient on options for her anxiety disorder. Per patient and CHW discussion patient and CHW will be in contact on Friday11/11/17 and CHW will have patient set up with an apt for a PCP at [facility] and CHW will help patient get set up with [facility] and will attend appointments with patient. Per CHW and patient this was agreed upon agreement.
--- NOTE | 2017-11-11 08:37 | NUR ---
CHW called patient at 8:38am on 11/11/17. Patient did not answer her phone, CHW left a voicemail to return call.
== END 2017-11-07 08:51 | disposition home or self-care (01) ==
LOC: ED 07:25
DX: F41.9 Anxiety disorder, unspecified (principal); R22.41 Localized swelling, mass and lump, right lower limb; F17.200 Nicotine dependence, unspecified, uncomplicated; Z88.1 Allergy status to other antibiotic agents; Z88.5 Allergy status to narcotic agent; Z88.8 Allergy status to other drugs, medicaments and biological substances
CPT/HCPCS: 99282

== ENCOUNTER 2018-01-24 22:44 | Emergency (ER) | payer OTHER ==
[~2018-01-24] VITALS: Ht 160 cm; Wt 86.3 kg
[2018-01-24] MEDS ORDERED: ZOFRAN ODT4 MG PO (22:58)
== END 2018-01-25 00:48 | disposition home or self-care (01) ==
LOC: ED 22:44
DX: F41.0 Panic disorder [episodic paroxysmal anxiety] (principal); F17.200 Nicotine dependence, unspecified, uncomplicated; Z88.1 Allergy status to other antibiotic agents; Z88.5 Allergy status to narcotic agent; Z88.8 Allergy status to other drugs, medicaments and biological substances
CPT/HCPCS: 96374; 96375; 99283; J1200; J2405; J7030